=== PATIENT | female | born 1980 | race Two or more races ===

== ENCOUNTER 2025-01-07 22:55 | Emergency (ER) | payer MEDICAID, SELFPAY ==
[2025-01-07 23:13] VITALS: BP 118/83; PULSE 127; RESP 22; TEMP 37.7; O2SAT 97; BMI 33.6
[2025-01-07 23:15] VITALS: BP 110/65; PULSE 116; RESP 20; O2SAT 95
--- NOTE | 2025-01-07 23:29 | EKG_ITS ---
[facility] Test Date: 2025-01-07 Pat Name: EM SHINE Department: Room: - Gender: Female Medical Asst: : 1980 Requested By: Pollo Leon Order Number: [id number] Reading MD: Pollo Leon Measurements Intervals [place] Rate: 110 P: 27 TN: 150 QRS: 59 QRSD: 81 T: 7 QT: 347 QTc: 471 Interpretive Statements SINUS TACHYCARDIA ABNORMAL RHYTHM ECG Compared to ECG 04/14/2023 15:35:03 No significant changes /store/S0/[id number]
--- NOTE | 2025-01-07 23:32 | XR_ITS ---
Examination: Abdomen sonogram, Limited Date and time of exam: January 07, 2025 11:45 PM INDICATIONS: Diagnosis stage IV gastric carcinoma, abdominal pain and bloating this week Technique: Real-time mack scale transabdominal sonographic images of the upper abdomen obtained. Findings: Cholelithiasis, gallbladder wall 0.3 cm no edema Common bile duct 0.4 cm Pancreas obscured by bowel gas Liver 17.2 cm fatty infiltration no focal liver lesions Normal hepatopedal portal venous flow Patent IVC Large complex mass in the upper abdomen 23 x 16.5 x 20.8 cm IMPRESSION: Large complex mass in the upper abdomen as above Cholelithiasis
--- NOTE | 2025-01-07 23:32 | XR_ITS ---
Examination: CT chest, without intravenous contrast. CT abdomen, without intravenous contrast. CT pelvis, without intravenous contrast. 2-D sagittal and coronal reconstructions. 3-D reconstructions. Date and time of exam:January 08, [address] scan March 16, 2024 INDICATIONS: Diagnosis malignant neoplasm uterus with abdominal pain and shortness of breath today CTDI vol (mgy) 16.3 DLP (MGycm)1358 Technique: Multiple CT images, 3.0 mm slice thickness, obtained chest, abdomen, pelvis, with the high-resolution 64 slice scanner.. Sagittal and coronal 2-D reconstructions are obtained. 3-D reconstructions Low dose protocols were performed. One or more of the following dose reduction techniques were used; automated exposure control, adjustment of the mA and/or KV according to patient size, use of iterative reconstruction technique. Findings: No thoracic aortic aneurysmal dilatation Mild enlargement main pulmonary artery segments 10 no interval peritracheal or tracheobronchial adenopathy Multiple metastatic pulmonary nodules, new and larger pulmonary nodules throughout the lungs compared to the PET/CT scan March 16, 2024, the largest in the right upper lobe 13 mm Pneumonia right base with small right pleural effusion Interval mild likely malignant ascites Fatty infiltration throughout the liver Gallstones Gallbladder wall appears thickened Dilated small bowel loops Very large mass in the pelvis at least 25 x 23 x 22 cm with hyperdense areas which may represent hemorrhage No hydronephrosis The mass is contiguous with the uterus Mild urinary bladder wall thickening No bowel obstruction Moderate osteopenia IMPRESSION: Significant progression of pulmonary nodular metastatic disease compared to PET/CT scan March 16, 2024 Pneumonia right base Interval malignant ascites Gallbladder wall thickening, recommend hepatobiliary sonography follow-up Interval large tumor mass in the pelvis with areas of possible hemorrhage in the tumor mass
[2025-01-07] MEDS: ONDANSETRON INJ 2 MG/ML INJ 2 ML 4 MG IV (23:36)
[2025-01-07] MEDS: HYDROmorphone INJ 2 MG/ML VIAL 1 MG IVP (23:37)
[2025-01-07] MEDS: RINGERS LACTATED 1000 ML 1,000 ML 999 ML IV (23:37)
[2025-01-07 23:40] VITALS: PULSE 110
[2025-01-07 23:44] LABS: Lactate (Lactic Acid) 1.7 mMol/L (0.4-2.0)
[2025-01-07 23:46] LABS: Basophils % (Auto) 0 % (0-2.5); Eosinophils # (Auto) 0.2 Thou/mm3 (0.0-0.5); Eosinophils % (Auto) 2 % (0-10); Hematocrit 30.4 % (36.0-46.0); Hemoglobin 10.2 g/dL (12.0-16.0); Immature Granulocytes % (Auto) 0 % (0-0); Immature Granulocytes Auto 0.02 Thou/mm3 (0.00-0.00); Lymphocytes # (Auto) 2.7 Thou/mm3 (1.0-4.8); Lymphocytes % (Auto) 28 % (10-50); Mean Corpuscular HGB Conc 33.6 g/dl (31.0-37.0); Mean Corpuscular Hemoglobin 28.7 pg (25.0-35.0); Mean Corpuscular Volume 86 fL (80-100); Monocytes # (Auto) 0.6 Thou/mm3 (0.0-0.8); Monocytes % (Auto) 6 % (0-12); Neutrophils % (Auto) 63 % (37-80); Nucleated Red Blood Cell % 0 /100 WBC (0); Platelet Count 300 Thou/mm3 (140-440); RDW Standard Deviation 44.4 fL (36.4-46.3); Red Blood Count 3.55 Miln/mm3 (4.00-5.20); White Blood Count 9.4 Thou/mm3 (3.6-11.0)
[2025-01-08 00:01] LABS: INR 1.2 (0.9-1.3); Partial Thromboplastin Time 27.4 Seconds (22.0-36.0); Prothrombin Time 12.8 Seconds (9.0-12.2)
--- NOTE | 2025-01-08 00:01 | XR_ITS ---
Examination: AP chest single view TECHNIQUE: AP portable upright chest single view Date and time: January 08, 2025 12:37 AM Comparison March 11, 2023 INDICATIONS: Sepsis alert today FINDINGS: Mild atelectasis in the right lower lung zone No lobar pneumonia Right internal jugular Port-A-Cath tip SVC Possible nodule in the right upper lobe 17 mm in this patient with a diagnosis of malignant neoplasm of uterus. IMPRESSION: Recommend CT scan chest without contrast follow-up to confirm a 17 mm pulmonary nodule right upper lobe and possible small numerous bilateral smaller pulmonary nodules
[2025-01-08 00:06] LABS: B-Type Natriuretic Peptide 22 pg/mL (0-100)
[2025-01-08 00:18] LABS: Alanine Aminotransferase < 7 U/L (10-49); Albumin, Serum 3.7 gm/dL (3.5-5.0); Albumin/Globulin Ratio 0.9 (1.2-2.2); Alkaline Phosphatase 95 U/L (46-116); Anion Gap 12 (7-16); Aspartate Amino Transferase 25 U/L (0-34); BUN/Creatinine Ratio 6 Ratio (12-20); Bilirubin,Total 0.8 mg/dL (0.3-1.2); Blood Urea Nitrogen < 5 mg/dL (9-23); Calcium 9.3 mg/dL (8.3-10.6); Calcium (Corrected) 9.5 mg/dL (8.5-10.1); Carbon Dioxide 22.6 mMol/L (20.0-31.0); Chloride 101 mMol/L (98-107); Creatinine (Component) 0.8 mg/dL (0.6-1.3); Estimated Creatinine Clearance 109.9 mL/min (>60); Glucose 92 mg/dL (74-106); LDH (Lactate Dehydrogenase) 1091 U/L (120-246); Lipase 24 U/L (12-53); Magnesium 1.7 mg/dL (1.6-2.6); Osmolality,Calculated 269 (275-295); Phosphorous 1.8 mg/dL (2.4-5.1); Potassium 3.3 mMol/L (3.4-5.1); Procalcitonin 0.22 ng/ml (0.0-0.49); Sodium 136 mMol/L (136-145); Total Protein 7.7 gm/dL (5.7-8.2); Troponin I < 0.002 ng/mL (0.0-0.045); eGFR > 60 See Note
--- NOTE | 2025-01-08 00:37 | PD.EDABDPN ---
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 She rated her pain 10/10 in intensity, throughout the abdomen, associated with nausea and vomiting. She also admitted lightheadedness and headache, but denied any sore throat, chest pain, SOB, any changes in bowel or bladder habit, or leg swelling. She denied any fever or chills. Related Data Previous Rx's ?Medication ?Instructions ?Recorded hydrocodone 7.5 mg-acetaminophen 1 tab PO Q8H PRN pain #14 tabs 01/08/25 325 mg tablet ondansetron HCl 4 mg tablet 4 mg PO Q8H PRN nausea and 01/08/25 vomiting #14 tabs Allergies Allergy/AdvReac Type Severity Reaction Status Date / Time No Known Allergies Allergy Verified 01/07/25 22:56 Review of Systems Review of Systems Systems Reviewed: All systems reviewed, normal except as documented ED Exam Narrative Physical exam: General: Mildly obese, cooperative female, no acute distress, Alert and Oriented x 3 HEENT: Mildly dry mucous membranes, oropharynx clear Neck: Supple, No masses, No JVD CVS: Sinus tachycardia, No murmurs, rubs or gallops Lungs: Clear to auscultation with no accessory use, no wheeze no rhonchi Abd: Soft, tenderness over RUQ and epigastrium/ND, +BS, no organomegaly Ext: No edema, warm and well perfused Skin: No rash Psych: Appropriate mood and affect Course Quality Measures none Orders Category Date Time Status CT Screening NOW Care 01/08/25 03:56 Active Instruction Librarian STAT Care 01/07/25 23:29 Active Continuous Pulse Oximetry STAT Care 01/07/25 23:29 Completed EKG (ED ONLY) *Do not use* NOW Care 01/07/25 23:29 Completed IV [Insert IV] STAT Care 01/07/25 23:18 Active Insert IV NOW Care 01/07/25 23:29 Completed NPO STAT Care 01/07/25 23:29 Active Strict Intake and Output Routine Care 01/07/25 23:[address] angio chest abdomen pelvis Stat Exams 01/08/25 03:[address] chest abdomen pelvis wo Stat Exams 01/07/25 23:32 Taken EKG (ED Only) Stat Exams 01/07/25 23:29 Draft US gall bladder Stat Exams 01/07/25 23:32 Taken XR chest 1V SEPSIS PROTOCOL Stat Exams 01/08/25 00:01 Taken B-Type Natriuretic Peptide Stat Lab 01/07/25 23:30 Completed CBC Stat Lab 01/07/25 23:30 Completed CBC Stat Lab 01/08/25 05:16 Completed CMP [Comprehensive Metabolic Panel] Routine Lab 01/08/25 05:16 Completed Comprehensive Metabolic Panel Stat Lab 01/07/25 23:30 Completed LDH (Lactate Dehydrogenase) Stat Lab 01/07/25 23:30 Completed Lactate (Lactic Acid) Stat Lab 01/07/25 23:30 Completed Lipase Stat Lab 01/07/25 23:30 Completed Magnesium Routine Lab 01/08/25 05:16 Completed Magnesium Stat Lab 01/07/25 23:30 Completed PT [Prothrombin Time with INR] Routine Lab 01/08/25 05:16 Completed PTT [Partial Thromboplastin Time] Routine Lab 01/08/25 05:16 Completed Partial Thromboplastin Time Stat Lab 01/07/25 23:30 Completed Phosphorous Routine Lab 01/08/25 05:16 Completed Phosphorous Stat Lab 01/07/25 23:30 Completed Procalcitonin Stat Lab 01/07/25 23:30 Completed Prothrombin Time with INR Stat Lab 01/07/25 23:30 Completed Troponin I Stat Lab 01/07/25 23:30 Completed Urinalysis Stat Lab 01/08/25 01:14 Completed Urine Culture Stat Lab 01/08/25 01:14 Received HYDROmorphone INJ [Dilaudid Inj] Med 01/07/25 23:27 Discontinued 1 mg IVP X1 ONE HYDROmorphone INJ [Dilaudid Inj] Med 01/08/25 01:53 Discontinued 1 mg IVP X1 ONE Magnesium Sulfate 4 GM Ivpb [Magnesium Sulfate Ivpb] Med 01/08/25 00:50 Discontinued 4 gm in 50 ml IV X1 Ondansetron Inj [Zofran Inj] Med 01/07/25 23:27 Active 4 mg IV Q6HR PRN POT PHOS 15 mMol in NS 250 ML [Pot Phos 15 mMol in NS Med 01/08/25 00:36 Active 250 ml] 15 mmol in 250 ml IV Q4H POTASSIUM CHL 10 mEq IVPB [Kcl Ivpb] Med 01/08/25 06:23 Active 10 meq in 100 ml IV Q1H Potassium Chloride [K-Dur] Med 01/08/25 06:22 Discontinued 20 meq PO X1 ONE Potassium Chloride [K-Dur] Med 01/08/25 06:37 Discontinued 20 meq PO X1 ONE Potassium Chloride [K-Dur] Med 01/08/25 06:37 Discontinued 20 meq PO X1 ONE Ringers Lactated 1000 ml [Lactated Ringers] 1,000 ml Med 01/07/25 23:27 Discontinued IV 999 mls/hr Sodium Chloride 0.9% 1000 ml [Ns] 1,000 ml Med 01/08/25 00:46 Discontinued IV 999 mls/hr Sodium Chloride 0.9% 500 ml [Ns] 500 ml Med 01/08/25 06:40 Active IV 999 mls/hr Oxygen Delivery NOW RT 01/07/25 23:29 Active Vital Signs Vital signs: Vital Signs Temperature 99.8 F 01/07/25 23:13 Pulse Rate 127 H 01/07/25 23:13 Respiratory Rate 22 H 01/07/25 23:13 Blood Pressure 118/83 01/07/25 23:13 Pulse Oximetry (%) 97 01/07/25 23:13 Oxygen Delivery Method Room Air 01/07/25 23:13 Abdominal Pain MDM MDM Narrative [facility] Narrative:: The patient is a 44-year-old female with significant past medical history of 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 She rated her pain 10/10 in intensity, throughout the abdomen, associated with nausea and vomiting. She also admitted lightheadedness and headache, but denied any sore throat, chest pain, SOB, any changes in bowel or bladder habit, or leg swelling. She denied any fever or chills. Her vitals were BP 118/83, pulse 127, RR 22, temperature 99.8, saturating 97% on room air. Labs revealed white count of 9.4, hemoglobin 10.2, PT 12.8, INR 1.2, APTT 27.4, sodium 136, potassium 3.3, lactic acid 1.7, phosphorus 1.8, LDH 1091, troponin less than 0.002, lipase 24 and Pro-Mikal 0.22. EKG revealed sinus tachycardia, Prelim read for gallbladder ultrasound revealed cholelithiasis with borderline wall thickening, CTA chest, abdomen/pelvis revealed Large pelviabdominal neoplastic complex mass as described. Multiple lung nodules likely metastasis. Small ascites with peritoneal nodular thickening and omental stranding , peritoneal metastasis cannot be excluded. Small to moderate right pleural effusion. Cholelithiasis with borderline wall thickening CTA chest/abdomen/pelvis revealed: 1. No evidence of aortic dissection or aneurysm. 2. No CT evidence of pulmonary thromboembolism (limited evaluation of some of the subsegmental pulmonary artery divisions due to respiratory motion artifact). Recommend additional evaluation, if clinically indicated. 3. Unchanged large pelviabdominal neoplastic mass with lung metastasis and possible peritoneal deposits. 4. Small to moderate right pleural effusion. 5. Cholelithiasis with borderline wall thickening The patient received hydromorphone 1 mg IVP x 2, LR 1 L bolus x 1 and normal saline 1 L bolus x 1, magnesium sulfate 4 g IV, potassium and phosphate 30 mmol, KCl 20 mEq IV x 1. The plan was made to discharge the patient home. Patient data External records reviewed:: [facility] previous records Clinical information provided by:: patient and family Social determinants that could affect healthcare access:: none Patient has the following chronic illnesses:: See above How is presenting disease/condition affected by chronic disease/condition?: caused by Evaluation data The following diagnostics were reviewed and interpreted by me:: lab results, radiology exam(s) and EKG tracing(s) Lab and/or radiology exams considered but not ordered:: None Interpretation Summary: See above Medications / Prescriptions Medications or Prescriptions considered but not ordered:: None Medication administrations:: Medication Administration History Potassium Phosphate (Pot Phos 15 Mmol In Ns 250 Ml) 15 mmol in 250 mls @ 62.5 mls/hr IV Q4H MARU Stop: 01/08/25 08:35 Last Infusion: 01/08/25 06:36 Dose: Infused Documented By: Admin: 01/08/25 02:09 Dose: 62.5 mls/hr Documented By: CVL Potassium Chloride (Kcl Ivpb) 10 meq in 100 mls @ 100 mls/hr IV Q1H AMRU Stop: 01/08/25 08:22 Last Admin: 01/08/25 06:33 Dose: 100 mls/hr Documented By: FELIPE Sodium Chloride (Ns) 500 mls @ 999 mls/hr IV .Q31M ONE Stop: 01/08/25 07:10 Last Admin: 01/08/25 06:40 Dose: 999 mls/hr Documented By: FELIPE Ondansetron HCl (Ondansetron Inj 2 Mg/Ml Inj 2 Ml) 4 mg IV Q6HR PRN PRN Reason: NAUSEA OR VOMITING Stop: 02/06/25 23:26 Last Admin: 01/08/25 05:17 Dose: 4 mg Documented By: Admin: 01/07/25 23:36 Dose: 4 mg Documented By: FELIPE Discontinued Medications Hydromorphone HCl (Hydromorphone Inj 2 Mg/Ml Vial) 1 mg IVP X1 ONE Stop: 01/07/25 23:28 Last Admin: 01/07/25 23:37 Dose: 1 mg Documented By: FELIPE Hydromorphone HCl (Hydromorphone Inj 2 Mg/Ml Vial) 1 mg IVP X1 ONE Stop: 01/08/25 01:54 Last Admin: 01/08/25 02:02 Dose: 1 mg Documented By: CVL Lactated Ringer's (Lactated Ringers) 1,000 mls @ 999 mls/hr IV .Q1H1M ONE Stop: 01/08/25 00:27 Last Infusion: 01/08/25 00:44 Dose: Infused Documented By: Admin: 01/07/25 23:37 Dose: 999 mls/hr Documented By: FELIPE Sodium Chloride (Ns) 1,000 mls @ 999 mls/hr IV .Q1H1M ONE Stop: 01/08/25 01:46 Last Infusion: 01/08/25 01:56 Dose: Infused Documented By: Admin: 01/08/25 01:12 Dose: 999 mls/hr Documented By: FELIPE Magnesium Sulfate (Magnesium Sulfate Ivpb) 4 gm in 50 mls @ 12.5 mls/hr IV X1 ONE Stop: 01/08/25 04:49 Last Infusion: 01/08/25 04:59 Dose: Infused Documented By: Admin: 01/08/25 01:12 Dose: 12.5 mls/hr Documented By: CB Potassium Chloride (Potassium Chloride 20 Meq Tabcr) 20 meq PO X1 ONE Stop: 01/08/25 06:23 Potassium Chloride (Potassium Chloride 20 Meq Tabcr) 20 meq PO X1 ONE Stop: 01/08/25 06:38 Potassium Chloride (Potassium Chloride 20 Meq Tabcr) 20 meq PO X1 ONE Stop: 01/08/25 06:38 See above Consultations Consultation(s) initiated? (list below): No Diagnosis Differential diagnosis abdominal pain: abdominal pain, gastroenteritis, pancreatitis and small bowel obstruction Most likely diagnosis given after review of the tests above:: Abdominal Pain Admission Indicated Admission indicated?: not indicated Explain why admission is indicated or not indicated:: Her vitals were stable, labs at baseline and stable. Admission Request Was there a request for admission?: No Disposition Plan Disposition Plan: other (specify) Discharge Plan Plan Patient Disposition: HOME (Self Care) Prescriptions/Referrals Prescriptions/Med Rec: New hydrocodone-acetaminophen 7.5-325 mg tablet 1 tab PO Q8H MDD 3 PRN (Reason: pain) Qty: 14 0RF ondansetron HCl 4 mg tablet 4 mg PO Q8H PRN (Reason: nausea and vomiting) Qty: 14 0RF Referrals: Pee Zelaya MD [Primary Care Provider] - In 1 week Problem List Clinical Impression: Abdominal pain, Leiomyosarcoma Patient/Caregiver Discharge Instructions Discharge Activity: activity as tolerated Education Materials: Nausea Vomit Control-Cancer Care Additional Instructions: You were discharged by Dr. Leon with following recommendations: Please follow-up with your PCP within 1 week of discharge Please follow-up with your oncologist as soon as possible. You have been started on: -Ondansetron 4 mg up to 3 times a day for nausea or vomiting - Hydrocodone-acetaminophen 7.5/325 mg up to 3 times a day for pain Continue taking all other medicines as prescribed -Recommended to return back to emergency department if your symptoms persists or worsens Print Language: Haitian Stand Alone Forms: Analisa Award Info., Patient Portal Info Letter Attestation Attestation I, Dr. Nelson, have reviewed the history, exam, and assessment of the patient. I have evaluated the patient independently and agree with the plan of care documented by the resident Dr. baker. All diagnostic studies were reviewed and discussed. I confirm the diagnosis as documented by the resident. I was present during the Medical Decision Making for this patient. The patient?s plan of care was created between myself and the resident and consistent with our discussion of the patient?s case.
[2025-01-08 01:12] VITALS: BP 110/79; PULSE 113; RESP 16; TEMP 37.4; O2SAT 94
[2025-01-08] MEDS: Magnesium Sulfate 4 GM Ivpb 4 GM/50 ML BAG IV (01:12)
[2025-01-08] MEDS: SODIUM CHLORIDE 0.9% 1000 ML 1,000 ML 999 ML IV (01:12)
[2025-01-08 01:18] LABS: Collection Type, Urine Clean Catch
[2025-01-08 01:28] LABS: Bacteria,Urine Rare; Bilirubin,Urine Negative (Negative); Blood,Urine Negative (Negative); Clarity,Urine Turbid (Clear/Hazy); Color,Urine Yellow (Lt Yel-Yel); Glucose, Urine Negative (Negative); Hyaline Casts,Urine < 1 /hpf (0-1); Ketones,Urine 1+ (Negative); Leukocyte Esterase,Urine Positive (Negative); Nitrite,Urine Negative (Negative); Protein,Urine Trace (Neg - Trace); RBC,Urine 4 /hpf (0-3); Specific Gravity,Urine 1.013 (1.001-1.035); Squamous Epithelial Cell,Urine 23 /hpf (0-5); WBC,Urine 14 /hpf (0-5)
[2025-01-08] MEDS: HYDROmorphone INJ 2 MG/ML VIAL 1 MG IVP (02:02)
[2025-01-08] MEDS: POT PHOS 15 mMol in NS 250 ML 15 MMOL/250 ML BAG 62.5 MMOL IV (02:09)
--- NOTE | 2025-01-08 02:16 | PRELIM_ITS ---
Gallbladder ultrasound. January 07, 2025 2345 hours Clinical history: Right upper quadrant tenderness Comparison: No prior study is available for comparison. Findings: The visualized liver is heterogenous without mass or ductal dilatation. There are a few calculi in the gallbladder with borderline wall thickness measuring 3 mm .No pericholecystic fluid is identified. The common duct is normal in caliber at 4 mm.There is a large complex mass in the mid abdomen measuring 23 x 14.5 x 20.8 cm. The pancreas is not visualized. Patent portal vein with hepatopetal flow. Patent inferior vena cava Impression: Cholelithiasis with borderline wall thickening Recommend clinical correlation and follow-up. Large complex mass in the mid abdomen Recommend further evaluation. Report Electronically Signed By: Thompson Salazar 01/08/2025 2:15:55 AM [EST]
--- NOTE | 2025-01-08 03:39 | PRELIM_ITS ---
CT scan of the chest, abdomen and pelvis without intravenous contrast (axial sections with sagittal and coronal reformats) January 08, 2025 0052 hours Clinical History: Abdominal pain with possible mets from lungs. Comparison: No prior study is available for comparison. Findings: There are multiple nodules in bilateral lungs , the largest at the right upper lobe measuring 1.6 cm . There is a right small to moderate pleural effusion with compressive atelectasis . There is no pneumothorax. The aorta is unremarkable on this noncontrast study. No evidence of mediastinal mass or lymphadenopathy. There is no pericardial effusion.There is a Port-A-Cath in the right anterior chest wall with its tip in the right atrium. There are a few gallbladder calculi with borderline wall thickening. The liver, spleen, pancreas, adrenals and kidneys are unremarkable on this noncontrast study. There is a large complex pelviabdominal mass measuring 25 x 20 x 22 cm with areas of hemorrhage and necrosis , the mass is not separable from uterus . There is mild peritoneal thickening and omental fat stranding . No evidence of bowel obstruction. The appendix is not definitively visualized; however, there is no evidence of inflammatory process in the right lower quadrant to suggest appendicitis. The urinary bladder is incompletely distended with apparent wall thickening . There is no free air. There is small ascites . Mild degenerative changes are identified in the spine. Impression: Large pelviabdominal neoplastic complex mass as described. Multiple lung nodules likely metastasis. Small ascites with peritoneal nodular thickening and omental stranding , peritoneal metastasis cannot be excluded. Small to moderate right pleural effusion. Cholelithiasis with borderline wall thickening Recommend follow-up. Other findings as described above. Report Electronically Signed By: Thompson Salazar 01/08/2025 3:39:22 AM [EST]
--- NOTE | 2025-01-08 03:51 | XR_ITS ---
Examination: CTA chest, with intravenous contrast. CTA abdomen, with intravenous contrast. CTA pelvis, with intravenous contrast. 2-D sagittal and coronal reconstructions. 3-D reconstructions. Date and time of exam: January 08, 2025 0414 hours uterus Comparison PET CT scan March 16, 2024 EXAMINATION: Chest pain and shortness of breath today, abdominal pain, diagnosis malignant neoplasm CTDI vol (mgy) 28.5 DLP (MGycm) 1841 Technique: Multiple CTA images, 2.0 mm slice thickness, obtained chest, abdomen, pelvis, with the high-resolution 64 slice scanner. 100 cc Isovue-370 is administered intravenously. Sagittal and coronal 2-D reconstructions are obtained. 3-D reconstructions, angiographic images are obtained. 3-D postprocessing, including vascular maximum intensity projections. Low dose protocols were performed. One or more of the following dose reduction techniques were used; automated exposure control, adjustment of the mA and/or KV according to patient size, use of iterative reconstruction technique. Findings: No thoracic aortic aneurysmal dilatation No pulmonary artery filling defects Again noted multiple metastatic pulmonary nodules, progression of pulmonary nodular metastatic disease compared to the PET/CT scan March 16, 2024 Gallstones Gallbladder wall appears mildly thickened Mild ascites, likely malignant ascites No focal liver or splenic lesions No pancreatic mass The very large mass in the lower abdomen and pelvis again noted, at least 25 cm Contracted urinary bladder IMPRESSION: Progression of pulmonary metastatic disease compared to PET/CT scan March 16, 2024 Gallbladder wall thickening with gallstones Mild malignant ascites Large pelvic abdominal mass again depicted with areas of hemorrhage
[2025-01-08 04:27] VITALS: BP 110/69; PULSE 104; RESP 17; TEMP 36.8; O2SAT 96
[2025-01-08] MEDS: ONDANSETRON INJ 2 MG/ML INJ 2 ML 4 MG IV (05:17)
[2025-01-08 05:24] LABS: Basophils % (Auto) 1 % (0-2.5); Eosinophils # (Auto) 0.1 Thou/mm3 (0.0-0.5); Eosinophils % (Auto) 2 % (0-10); Hemoglobin 8.9 g/dL (12.0-16.0); Immature Granulocytes % (Auto) 0 % (0-0); Immature Granulocytes Auto 0.01 Thou/mm3 (0.00-0.00); Lymphocytes # (Auto) 1.9 Thou/mm3 (1.0-4.8); Lymphocytes % (Auto) 24 % (10-50); Mean Corpuscular Hemoglobin 29.5 pg (25.0-35.0); Mean Corpuscular Volume 89 fL (80-100); Monocytes # (Auto) 0.6 Thou/mm3 (0.0-0.8); Monocytes % (Auto) 7 % (0-12); Neutrophils # (Auto) 5.3 Thou/mm3 (1.8-7.7); Neutrophils % (Auto) 67 % (37-80); Nucleated Red Blood Cell % 0 /100 WBC (0); Platelet Count 252 Thou/mm3 (140-440); RDW Standard Deviation 46.1 fL (36.4-46.3); Red Blood Count 3.02 Miln/mm3 (4.00-5.20); White Blood Count 7.9 Thou/mm3 (3.6-11.0)
[2025-01-08 05:46] LABS: INR 1.2 (0.9-1.3); Partial Thromboplastin Time 28.5 Seconds (22.0-36.0); Prothrombin Time 12.9 Seconds (9.0-12.2)
[2025-01-08 06:01] LABS: Alanine Aminotransferase < 7 U/L (10-49); Albumin, Serum 3.2 gm/dL (3.5-5.0); Albumin/Globulin Ratio 0.9 (1.2-2.2); Alkaline Phosphatase 82 U/L (46-116); Anion Gap 11 (7-16); Aspartate Amino Transferase 22 U/L (0-34); BUN/Creatinine Ratio 6 Ratio (12-20); Bilirubin,Total 0.6 mg/dL (0.3-1.2); Blood Urea Nitrogen < 5 mg/dL (9-23); Calcium 8.5 mg/dL (8.3-10.6); Calcium (Corrected) 9.1 mg/dL (8.5-10.1); Carbon Dioxide 23.1 mMol/L (20.0-31.0); Chloride 102 mMol/L (98-107); Creatinine (Component) 0.8 mg/dL (0.6-1.3); Estimated Creatinine Clearance 109.9 mL/min (>60); Globulin 3.6 gm/dL (2.3-3.5); Glucose 94 mg/dL (74-106); Magnesium 2.3 mg/dL (1.6-2.6); Osmolality,Calculated 269 (275-295); Phosphorous 3.7 mg/dL (2.4-5.1); Potassium 3.5 mMol/L (3.4-5.1); Sodium 136 mMol/L (136-145); Total Protein 6.8 gm/dL (5.7-8.2); eGFR > 60 See Note
--- NOTE | 2025-01-08 06:08 | PRELIM_ITS ---
CT angiogram of the chest, abdomen and pelvis with intravenous contrast (axial sections with sagittal and coronal reformats) January 08, 2025 at 0414 hours Clinical History: Previous PE with tachycardia and O2 sats in 80's. Comparison: January 08, 2025 at 0052 hours. Findings: The thoracic aorta demonstrates mild atheromatous calcification without evidence of dissection or aneurysm. The origins of the right brachiocephalic, left common carotid and left subclavian arteries are patent. The abdominal aorta demonstrates mild atheromatous calcification without evidence of dissection or aneurysm. The celiac, superior mesenteric, inferior mesenteric and bilateral renal arteries are patent to the extent visualized. The common iliac, external iliac and internal iliac arteries are patent bi laterally. The evaluation of some of the subsegmental pulmonary artery divisions is limited due to respiratory motion artifact. No pulmonary thromboembolism in the remainder of the pulmonary artery divisions. Again seen are multiple nodules in bilateral lungs , the largest at the right upper lobe measuring 1.6 cm . There is a right small to moderate pleural effusion with compressive atelectasis .No evidence of mediastinal mass or lymphadenopathy. There is no pericardial effusion.No evidence of pneumothorax. Again seen is large complex pelviabdominal mass measuring 25 x 20 x 22 cm with areas of hemorrhage and necrosis, the mass is not separable from uterus. There is mild peritoneal thickening and omental fat stranding. Again seen are few gallbladder calculi with borderline wall thickening. The liver, spleen, pancreas, adrenals and kidneys are unremarkable. No evidence of bowel obstruction. The appendix is not definitively visualized; however, there is no evidence of inflammatory process in the right lower quadrant to suggest appendicitis. There is no significant mesenteric or retroperitoneal adenopathy. The urinary bladder is incompletely distended . There is no free air or abscess. There is small ascites Mild Degenerative changes are identified in the spine. Impression: 1. No evidence of aortic dissection or aneurysm. 2. No CT evidence of pulmonary thromboembolism (limited evaluation of some of the subsegmental pulmonary artery divisions due to respiratory motion artifact). Recommend additional evaluation, if clinically indicated. 3. Unchanged large pelviabdominal neoplastic mass with lung metastasis and possible peritoneal deposits. 4. Small to moderate right pleural effusion. 5. Cholelithiasis with borderline wall thickening Recommend follow-up 6. Other findings as described above. Report Electronically Signed By: Benita Pearson 01/08/2025 6:08:05 AM [EST]
[2025-01-08] MEDS: POTASSIUM CHL 10 mEq IVPB 10 MEQ/100 ML BAG 100 MEQ IV ×2 (06:33→07:34)
[2025-01-08 06:40] VITALS: BP 118/74; PULSE 97; RESP 19; O2SAT 99
[2025-01-08] MEDS: SODIUM CHLORIDE 0.9% 500 ML 500 ML 999 ML IV (06:40)
--- NOTE | 2025-01-08 07:12 | EKG_ITS ---
[facility] Test Date: 2025-01-08 Pat Name: EM SHINE Department: Room: - Gender: Female Nursing Director: : 1980 Requested By: Baljinder Madrid Order Number: [id number] Reading MD: Baljinder Madrid Measurements Intervals [place] Rate: 93 P: 18 KS: 159 QRS: 26 QRSD: 77 T: 0 QT: 376 QTc: 469 Interpretive Statements SINUS RHYTHM Compared to ECG 01/07/2025 23:38:29 Sinus tachycardia no longer present /store/S0/[id number]
[2025-01-08] MEDS: ONDANSETRON ODT 4 MG TABRAP PO (07:41)
[2025-01-08 07:56] VITALS: BP 118/82; PULSE 92; RESP 18; TEMP 36.9; O2SAT 97
--- NOTE | 2025-01-08 08:42 | PD.EDADDENDU ---
MD Attestation Attestation Dr. Leon, PGY 2 night ED resident signed out ED course, exam findings, labs and radiology results regarding the patient. 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 She rated her pain 10/10 in intensity, throughout the abdomen, associated with nausea and vomiting. She also admitted lightheadedness and headache, but denied any sore throat, chest pain, SOB, any changes in bowel or bladder habit, or leg swelling. She denied any fever or chills. Differentials included abdominal pain related to gastroenteritis, pancreatitis and SBO Gastroenteritis and pancreatitis were ruled out. Patient was found to have abdominal pain likely related to leiomyosarcoma. She was advised to follow-up with her PCP and oncologist as soon as possible. She was given prescriptions for Zofran and [place] for pain management. 7:38: Patient was given IV 20 mEq KCl back and p.o. potassium was discontinued as patient was feeling nauseous and was given dose of Zofran. Repeat EKG showed QTc 427 with sinus rhythm. Will likely discharge the patient after an hour of IV KCl and with improvement in nausea. 8:46 Patients' pain and nausea has significantly improved. Patient was stable at the time of discharge. Baljinder Madrid MD, PGY 2
[2025-01-08 09:23] VITALS: BP 126/73; PULSE 102; O2SAT 94
== END 2025-01-08 09:25 | disposition home or self-care (01) ==
PROVIDERS: Student in an Organized Health Care Education/Training Program; Emergency Provider Emergency Medicine; PCP Family Medicine
DX: R10.9 Unspecified abdominal pain (principal); C49.9 Malignant neoplasm of connective and soft tissue, unspecified; C78.00 Secondary malignant neoplasm of unspecified lung; R11.2 Nausea with vomiting, unspecified; R51.9 Headache, unspecified; R42 Dizziness and giddiness
CPT/HCPCS: 36415; 71045; 71250; 71275; 74174; 74176; 76705; 80053; 81001; 83605; 83615; 83690; 83735; 83880; 84100; 84145; 84484; 85025; 85610; 85730; 87086; 93005; 96361; 96365; 96366; 96367; 96375; 96376; 99285; A4649; J1171; J2405; J3475; J3480; J7030; J7040; J7120; J7999; Q0162; Q9967

== ENCOUNTER 2025-01-16 06:27 | Inpatient (IN) | payer MEDICAID, SELFPAY ==
[2025-01-16 06:29] VITALS: BMI 31.9
[2025-01-16 06:37] VITALS: BP 124/85; PULSE 120; RESP 20; TEMP 37.1; O2SAT 94
--- NOTE | 2025-01-16 06:46 | XR_ITS ---
Examination: Abdomen sonogram, Limited Date and time of exam: January 16, 2025 0732 hours INDICATIONS: Right upper abdominal pain and vomiting beginning 2 weeks ago, gallbladder wall thickening on CT abdomen study January 08, 2025 Technique: Real-time mack scale transabdominal sonographic images of the upper abdomen obtained. Findings: Gallstones Gallbladder wall 0.43 cm no edema Common bile duct 0.6 cm no stones Pancreatic head 2.4 cm Liver 15.1 cm irregular contour with mild ascites Normal hepatopedal portal venous flow Patent IVC IMPRESSION: Cholelithiasis Thickening of the gallbladder wall 0.43 cm, consider HIDA scan or MRCP follow-up Cirrhosis Mild ascites
--- NOTE | 2025-01-16 06:46 | PD.EDRME ---
Rapid Medical Screening Exam RME Arrival date/time: 01/16/25 06:27 44-year-old female with a history of uterine cancer that has spread to the stomach presents to the emergency room with a chief complaint of 10 out of 10 right upper quadrant abdominal pain and tenderness x 2 days. Caregiver at bedside states the patient is fatigued and has not got any rest. I have greeted and performed a focused initial assessment of this patient. A comprehensive ED assessment and evaluation of the patient, analysis of all test results, and completion of the medical decision making process will be conducted by additional ED providers. Chief Complaint: Abdominal Pain Time Seen by Provider: 01/16/25 06:42 Vital signs: Vital Signs Temperature 98.7 F 01/16/25 06:37 Pulse Rate 120 H 01/16/25 06:37 Respiratory Rate 20 01/16/25 06:37 Blood Pressure 124/85 H 01/16/25 06:37 Pulse Oximetry (%) 94 L 01/16/25 06:37 Oxygen Delivery Method Room Air 01/16/25 06:37 Vital signs reviewed by provider: Yes
[2025-01-16 07:20] LABS: Basophils % (Auto) 0 % (0-2.5); Eosinophils # (Auto) 0.2 Thou/mm3 (0.0-0.5); Eosinophils % (Auto) 2 % (0-10); Hematocrit 30.3 % (36.0-46.0); Hemoglobin 9.8 g/dL (12.0-16.0); Immature Granulocytes % (Auto) 0 % (0-0); Immature Granulocytes Auto 0.05 Thou/mm3 (0.00-0.00); Lymphocytes # (Auto) 2.2 Thou/mm3 (1.0-4.8); Lymphocytes % (Auto) 19 % (10-50); Mean Corpuscular HGB Conc 32.3 g/dl (31.0-37.0); Mean Corpuscular Hemoglobin 28.4 pg (25.0-35.0); Mean Corpuscular Volume 88 fL (80-100); Monocytes # (Auto) 0.7 Thou/mm3 (0.0-0.8); Monocytes % (Auto) 6 % (0-12); Neutrophils # (Auto) 8.3 Thou/mm3 (1.8-7.7); Neutrophils % (Auto) 72 % (37-80); Nucleated Red Blood Cell % 0 /100 WBC (0); Platelet Count 291 Thou/mm3 (140-440); RDW Standard Deviation 47.2 fL (36.4-46.3); Red Blood Count 3.45 Miln/mm3 (4.00-5.20); White Blood Count 11.6 Thou/mm3 (3.6-11.0)
[2025-01-16 07:48] LABS: Alanine Aminotransferase < 7 U/L (10-49); Albumin, Serum 3.5 gm/dL (3.5-5.0); Albumin/Globulin Ratio 0.9 (1.2-2.2); Alkaline Phosphatase 103 U/L (46-116); Anion Gap 11 (7-16); Aspartate Amino Transferase 27 U/L (0-34); BUN/Creatinine Ratio 8 Ratio (12-20); Bilirubin,Total 0.8 mg/dL (0.3-1.2); Blood Urea Nitrogen 9 mg/dL (9-23); Calcium 8.8 mg/dL (8.3-10.6); Calcium (Corrected) 9.2 mg/dL (8.5-10.1); Carbon Dioxide 24.7 mMol/L (20.0-31.0); Chloride 99 mMol/L (98-107); Creatinine (Component) 1.1 mg/dL (0.6-1.3); Estimated Creatinine Clearance 80.4 mL/min (>60); Globulin 3.7 gm/dL (2.3-3.5); Glucose 94 mg/dL (74-106); Lipase 22 U/L (12-53); Osmolality,Calculated 268 (275-295); Potassium 3.5 mMol/L (3.4-5.1); Sodium 135 mMol/L (136-145); Total Protein 7.2 gm/dL (5.7-8.2); eGFR > 60 See Note
--- NOTE | 2025-01-16 08:11 | PD.EDADULT ---
ED General RME/HPI General Chief complaint: Abdominal Pain Stated complaint: ABD PAIN TWO WKS NAUSEA VOMITING Time Seen by Provider: 01/16/25 06:42 Arrival date/time: 01/16/25 06:27 RME / HPI RME / HPI narrative: 01/16/25 06:27 44-year-old female with a history of uterine cancer that has spread to the stomach presents to the emergency room with a chief complaint of 10 out of 10 right upper quadrant abdominal pain and tenderness x 2 days. Caregiver at bedside states the patient is fatigued and has not got any rest. I have greeted and performed a focused initial assessment of this patient. A comprehensive ED assessment and evaluation of the patient, analysis of all test results, and completion of the medical decision making process will be conducted by additional ED providers. DR. CEDENO MAIN ED EVALUATION: 44 year old female with past medical history significant for uterine cancer that has spread to the stomach presents to the Emergency Department accompanied by her with complaints of right-sided abdominal pain, nausea, and vomiting. Onset of symptoms 2.5 weeks. Other symptoms include generalized weakness. She states she is supposed to start chemo soon just having some insurance problems. Last bowel movement was Wednesday. No other symptoms reported at this time. 1500: Obtained more history from the patient and her brother. She was diagnosed with cancer on 07/2023 and was followed by Dr. Landin at [place]; had chemo all 2023 but last saw her doctor 07/2024. After that she discontinued her cancer treatment because her private insurance was cancelled; now she is on [employer] insurance and trying to see where to go. Related Data Home Medications ?Medication ?Instructions ?Recorded ?Confirmed No Known Home Medications 01/17/25 01/17/25 Allergies Allergy/AdvReac Type Severity Reaction Status Date / Time No Known Allergies Allergy Verified 01/16/25 06:32 Review of Systems Review of Systems Systems Reviewed: All systems reviewed, normal except as documented Narrative Review of Systems: GEN: No fever, no chills, no weight loss EYES: No discharge, no visual changes, no pain HEENT: No ear pain, no congestion, no sore throat PULM: No shortness of breath, no cough, no congestion CV: No chest pain, no dyspnea on exertion, no palpitations GI: + nausea, + vomiting, no diarrhea, + right-sided abdominal pain, no constipation : No frequency, no urgency and no dysuria MUSC/SKEL: No joint pain, no back pain SKIN: No rash PSYCH: No hallucinations, no depression HEME/LYMPH: No easy bleeding or bruising tendencies NEURO: + generalized weakness, no headache Past Medical History Past Medical History RESPIRATORY: Positive Pulmonary Embolism HEMATOLOGIC: Positive Anemia OTHER HISTORY: Positive Hospitalization and Blood Transfusions Social History SMOKING STATUS: Never smoker SUBSTANCE USE: does not use ALCOHOL: Never ED Exam Narrative Physical exam: GENERAL APPEARANCE: alert and oriented x 4, well-developed, well-nourished VITALS: All vitals were reviewed and the pulse ox is 94% on room air, which is normal according to my interpretation. HEENT: Normocephalic, atraumatic; pupils equal, round, reactive to light; EOMI; mucous membranes pink, moist; oropharynx clear NECK: Supple LUNGS: CTABL; no wheezes, no rales, no rhonchi HEART: Regular rate, regular rhythm; normal S1, S2; no murmurs ABDOMEN: distended; right-sided abdominal tenderness, no rebound; no masses, no organomegaly, no hernia BACK: no CVA tenderness EXTREMITIES: atraumatic; no edema NEUROLOGIC: awake; alert and oriented x4; cranial nerves II-XII grossly intact; no focal sensory or motor deficits PSYCHIATRIC: appropriate mood and affect SKIN: warm, dry, normal color; no rashes Course Quality Measures none Orders Category Date Time Status COVID-19 Screening Questionnaire NOW Care 01/16/25 21:[address] Screening NOW Care 01/16/25 08:21 Completed Decision to Admit X1 Care 01/16/25 21:15 Completed MRI Screening NOW Care 01/16/25 14:[address] abdomen pelvis w con Stat Exams 01/16/25 08:21 Completed MR MRCP Stat Exams 01/17/25 Completed NM HIDA w pharm Stat Exams 01/16/25 14:53 Completed US gall bladder Stat Exams 01/16/25 06:46 Completed Blood Culture (Lab) Stat Lab 01/16/25 23:12 Completed CBC Stat Lab 01/16/25 06:56 Completed CMP [Comprehensive Metabolic Panel] Stat Lab 01/16/25 06:56 Completed HCG Qualitative,Urine Stat Lab 01/16/25 14:20 Completed HCG,Qualitative Serum Stat Lab 01/16/25 06:56 Completed Lipase Stat Lab 01/16/25 06:56 Completed UA [Urinalysis] Stat Lab 01/16/25 14:20 Completed Urine Culture Stat Lab 01/16/25 14:20 Completed HYDROcodone/APAP 10/325 [Sharon 10/325] Med 01/16/25 06:46 Discontinued 1 tab PO X1 ONE HYDROmorphone INJ [Dilaudid Inj] Med 01/16/25 14:01 Discontinued 1 mg IVP X1 ONE HYDROmorphone INJ [Dilaudid Inj] Med 01/16/25 18:12 Discontinued 1 mg IVP X1 ONE HYDROmorphone INJ [Dilaudid Inj] Med 01/16/25 21:04 Discontinued 1 mg IVP X1 ONE Ketorolac Inj [Toradol Inj] Med 01/16/25 21:04 Discontinued 30 mg IVP X1 ONE Metoclopramide [Reglan] Med 01/16/25 06:46 Discontinued 10 mg PO X1 ONE Morphine Inj Med 01/16/25 06:51 Discontinued 4 mg IVP X1 ONE Ondansetron Inj [Zofran Inj] Med 01/16/25 06:51 Discontinued 4 mg IVP X1 ONE Ondansetron Inj [Zofran Inj] Med 01/16/25 14:01 Discontinued 4 mg IVP X1 ONE Ondansetron Inj [Zofran Inj] Med 01/16/25 21:04 Discontinued 4 mg IVP X1 ONE Piper/Tazo 3.375 gm Premix [Zosyn] Med 01/16/25 21:10 Discontinued 3.375 gm in 50 ml IV X1 Sincalide Inj [Kinevac Inj] Med 01/16/25 03:44 Discontinued 5 mcg .ROUTE .STK-MED ONE Sodium Chloride 0.9% 1000 ml [Ns] 1,000 ml Med 01/16/25 07:25 Discontinued IV 999 mls/hr Sterile Water 20 ml Med 01/16/25 03:44 Discontinued .ROUTE .STK-MED Vital Signs Vital signs: Vital Signs Temperature 98.7 F 01/16/25 06:37 Pulse Rate 120 H 01/16/25 06:37 Respiratory Rate 20 01/16/25 06:37 Blood Pressure 124/85 H 01/16/25 06:37 Pulse Oximetry (%) 94 L 01/16/25 06:37 Oxygen Delivery Method Room Air 01/16/25 06:37 Discharge Plan Plan Patient Disposition: Admit Acute Care w/in Hospital Problem List Clinical Impression: Acute cholecystitis, Metastasis, Pneumonia, Pelvic mass MDM Narrative MDM hospital course: I, Radha Schreiber, am scribing for and in the presence of Dr. Cedeno. Clinical Information Provided by patient, spouse and family Medical Records Reviewed [facility] Meds/Rx Considered, not Ordered None Labs/Rad/Tests considered, not Ordered None Chronic Illness/Social Conditions Add or document further as needed: uterine cancer that has spread to the stomach Lab Interpretation Labs: other (pending) Imaging Imaging interpretation: other (pending MRCP and HIDA) Radiology reports / interpretation(s): Procedure(s): US gall bladder Accession Number(s): [id number] cc: Christopher Hitchcock; Narciso Dick MD~ Examination: Abdomen sonogram, Limited Date and time of exam: January 16, 2025 0732 hours INDICATIONS: Right upper abdominal pain and vomiting beginning 2 weeks ago, gallbladder wall thickening on CT abdomen study January 08, 2025 Technique: Real-time mack scale transabdominal sonographic images of the upper abdomen obtained. Findings: Gallstones Gallbladder wall 0.43 cm no edema Common bile duct 0.6 cm no stones Pancreatic head 2.4 cm Liver 15.1 cm irregular contour with mild ascites Normal hepatopedal portal venous flow Patent IVC IMPRESSION: Cholelithiasis Thickening of the gallbladder wall 0.43 cm, consider HIDA scan or MRCP follow-up Cirrhosis Mild ascites Dictated By: Narciso Dick MD Procedure(s): CT abdomen pelvis w con Accession Number(s): [id number] cc: Jennifer Higginbotham NP; Narciso Dick MD; Margaret Cedeno MD~ Examination: CT abdomen with intravenous contrast CT pelvis with intravenous contrast 2-D coronal reconstructions 2-D sagittal reconstructions Date and time of exam:January 16, [address] chest abdomen pelvis January 08, 2025 INDICATIONS: Right upper abdominal pain nausea vomiting beginning one month ago, diagnosis malignant neoplasm uterus, pulmonary nodular metastatic disease malignant ascites large pelvic abdominal mass on CT chest abdomen pelvis January 08, 2025. CTDI: vol (mGy) 15.5 DLP: (mGycm) 976 Technique: Multiple axial sections of the abdomen and pelvis have been obtained. 64 slice high-resolution scanner used. 3 mm axial sections have been obtained, post intravenous injection 60 cc [id number] 2-D sagittal, coronal reconstructions obtained. Low dose protocols were performed. One or more of the following dose reduction techniques were used; automated exposure control, adjustment of the mA and/or KV according to patient size, use of iterative reconstruction technique. Findings: Pulmonary nodules in the lower lung zones, including 8 mm axial image 2 Pneumonia versus atelectasis in the right midlung image 23 Pneumonia right base Moderate right pleural effusion Liver irregular in contour with fatty infiltration Cholelithiasis Spleen not enlarged Mild malignant ascites Again noted septated necrotic mass in the pelvis extending into the abdomen, mediolateral dimension at least 25 cm, cephalocaudad dimension at least 27 cm anterior posterior dimension at least 17 cm No bowel obstruction Aorta normal size Normal appendix Contracted urinary bladder Prominent osteopenia IMPRESSION: Metastatic pulmonary nodules Pneumonia right base Primary hepatocellular disease Cholelithiasis Very large septated necrotic mass in the pelvis extending into the abdomen, 25 x 27 x 17 cm Mild malignant ascites Dictated By: Narciso Dick MD Medication Administration(s) Medication Administration History Discontinued Medications Acetaminophen (Acetaminophen 325 Mg Tablet) 650 mg PO Q6H PRN PRN Reason: Fever >100.3 or pain Stop: 02/15/25 23:08 Acetaminophen (Acetaminophen 325 Mg Tablet) 650 mg PO Q6H PRN PRN Reason: Fever >100.3 or pain(1-3) Stop: 02/15/25 23:08 Hydrocodone Bitart/Acetaminophen (Hydrocodone/Apap 10/325 Tab) 1 tab PO X1 ONE Stop: 01/16/25 06:47 Last Admin: 01/16/25 08:29 Dose: Not Given Documented By: TAYLA Non-Admin Reason: Cancelled by Provider Bisacodyl (Bisacodyl 10 Mg Supp) 10 mg WI QDAY PRN; Protocol PRN Reason: Constipation Stop: 02/25/25 12:47 Last Admin: 01/26/25 13:58 Dose: 10 mg Documented By: DAYANNA Enoxaparin Sodium (Enoxaparin Sod Inj 40 Mg/0.4 Ml Syringe) 40 mg SC QDAY MARU Stop: 01/31/25 08:59 Last Admin: 01/27/25 08:12 Dose: 40 mg Documented By: Admin: 01/26/25 08:33 Dose: 40 mg Documented By: Admin: 01/25/25 08:11 Dose: 40 mg Documented By: Admin: 01/24/25 08:10 Dose: 40 mg Documented By: Admin: 01/23/25 09:58 Dose: 40 mg Documented By: Admin: 01/22/25 09:03 Dose: 40 mg Documented By: Admin: 01/21/25 10:38 Dose: 40 mg Documented By: Admin: 01/20/25 08:59 Dose: 40 mg Documented By: Admin: 01/19/25 09:07 Dose: Not Given Documented By: DELISA Non-Admin Reason: Held for Procedure Admin: 01/17/25 09:17 Dose: 40 mg Documented By: PRIYANKA Fentanyl Citrate (Fentanyl Cit Inj 50 Mcg/Ml Amp 2ml) Confirm Administered Dose 200 mcg .ROUTE .STK-MED ONE Stop: 01/19/25 09:58 Last Admin: 01/19/25 11:46 Dose: Not Given Documented By: EC Non-Admin Reason: Duplicate Medication on eMAR Fentanyl Citrate (Fentanyl Cit Inj 50 Mcg/Ml Amp 2ml) 100 mcg IVP X1 ONE Stop: 01/19/25 10:48 Last Admin: 01/19/25 10:47 Dose: 100 mcg Documented By: EC Hydromorphone HCl (Hydromorphone Inj 2 Mg/Ml Vial) 1 mg IVP X1 ONE Stop: 01/16/25 14:02 Last Admin: 01/16/25 14:14 Dose: 1 mg Documented By: RD Hydromorphone HCl (Hydromorphone Inj 2 Mg/Ml Vial) 1 mg IVP X1 ONE Stop: 01/16/25 18:13 Last Admin: 01/16/25 18:37 Dose: 1 mg Documented By: TAYLA Hydromorphone HCl (Hydromorphone Inj 2 Mg/Ml Vial) 1 mg IVP X1 ONE Stop: 01/16/25 21:05 Last Admin: 01/16/25 22:50 Dose: 1 mg Documented By: ALYSHA Sodium Chloride (Ns) 1,000 mls @ 999 mls/hr IV .Q1H1M ONE Stop: 01/16/25 08:25 Last Infusion: 01/16/25 09:35 Dose: Infused Documented By: Admin: 01/16/25 08:28 Dose: 999 mls/hr Documented By: TAYLA Sterile Water (Sterile Water) Confirm Administered Dose 20 mls @ ud .ROUTE .STK-MED ONE Stop: 01/16/25 03:45 Last Admin: 01/16/25 18:40 Dose: Not Given Documented By: TAYLA Non-Admin Reason: Discontinued Piperacillin/Tazobactam/Dextrose (Zosyn) 3.375 gm in 50 mls @ 100 mls/hr IV X1 ONE Stop: 01/16/25 21:39 Last Infusion: 01/16/25 23:56 Dose: Infused Documented By: Admin: 01/16/25 23:26 Dose: 100 mls/hr Documented By: ALYSHA Ceftriaxone Sodium/Dextrose (Rocephin/D5w 1gm Iv Premix) 1 gm in 50 mls @ 100 mls/hr IV QDAY MARU Stop: 01/23/25 23:17 Last Admin: 01/23/25 09:58 Dose: 100 mls/hr Documented By: Infusion: 01/22/25 09:33 Dose: Infused Documented By: Admin: 01/22/25 09:03 Dose: 100 mls/hr Documented By: Infusion: 01/21/25 11:08 Dose: Infused Documented By: Admin: 01/21/25 10:38 Dose: 100 mls/hr Documented By: Infusion: 01/20/25 09:29 Dose: Infused Documented By: Admin: 01/20/25 08:59 Dose: 100 mls/hr Documented By: Infusion: 01/19/25 09:31 Dose: Infused Documented By: Admin: 01/19/25 09:01 Dose: 100 mls/hr Documented By: Infusion: 01/18/25 10:10 Dose: Infused Documented By: Admin: 01/18/25 09:40 Dose: 100 mls/hr Documented By: Infusion: 01/17/25 09:47 Dose: Infused Documented By: Admin: 01/17/25 09:17 Dose: 100 mls/hr Documented By: Infusion: 01/17/25 01:55 Dose: Infused Documented By: Admin: 01/17/25 01:25 Dose: 100 mls/hr Documented By: CG Metronidazole (Flagyl 500 Mg Iv) 500 mg in 100 mls @ 200 mls/hr IV Q8HR MARU Stop: 01/23/25 23:18 Last Admin: 01/23/25 22:58 Dose: 200 mls/hr Documented By: Infusion: 01/23/25 14:07 Dose: Infused Documented By: Admin: 01/23/25 13:37 Dose: 200 mls/hr Documented By: Infusion: 01/23/25 05:36 Dose: Infused Documented By: Admin: 01/23/25 05:06 Dose: 200 mls/hr Documented By: Infusion: 01/22/25 22:41 Dose: Infused Documented By: Admin: 01/22/25 22:11 Dose: 200 mls/hr Documented By: Infusion: 01/22/25 13:53 Dose: Infused Documented By: Admin: 01/22/25 13:23 Dose: 200 mls/hr Documented By: Infusion: 01/22/25 05:47 Dose: Infused Documented By: Admin: 01/22/25 05:17 Dose: 200 mls/hr Documented By: Infusion: 01/21/25 21:32 Dose: Infused Documented By: Admin: 01/21/25 21:02 Dose: 200 mls/hr Documented By: Infusion: 01/21/25 14:37 Dose: Infused Documented By: Admin: 01/21/25 14:07 Dose: 200 mls/hr Documented By: Infusion: 01/21/25 06:10 Dose: Infused Documented By: Admin: 01/21/25 05:40 Dose: 200 mls/hr Documented By: Infusion: 01/20/25 21:48 Dose: Infused Documented By: Admin: 01/20/25 21:18 Dose: 200 mls/hr Documented By: Infusion: 01/20/25 13:33 Dose: Infused Documented By: Admin: 01/20/25 13:03 Dose: 200 mls/hr Documented By: Infusion: 01/20/25 05:50 Dose: Infused Documented By: Admin: 01/20/25 05:20 Dose: 200 mls/hr Documented By: Infusion: 01/19/25 21:43 Dose: Infused Documented By: Admin: 01/19/25 21:13 Dose: 200 mls/hr Documented By: Infusion: 01/19/25 16:19 Dose: Infused Documented By: Admin: 01/19/25 15:49 Dose: 200 mls/hr Documented By: Infusion: 01/19/25 05:40 Dose: Infused Documented By: Admin: 01/19/25 05:10 Dose: 200 mls/hr Documented By: Infusion: 01/18/25 21:31 Dose: Infused Documented By: Admin: 01/18/25 21:01 Dose: 200 mls/hr Documented By: Infusion: 01/18/25 13:45 Dose: Infused Documented By: Admin: 01/18/25 13:15 Dose: 200 mls/hr Documented By: SL Infusion: 01/18/25 06:05 Dose: Infused Documented By: Admin: 01/18/25 05:35 Dose: 200 mls/hr Documented By: Infusion: 01/17/25 22:45 Dose: Infused Documented By: Admin: 01/17/25 22:15 Dose: 200 mls/hr Documented By: Infusion: 01/17/25 15:29 Dose: Infused Documented By: Admin: 01/17/25 14:59 Dose: 200 mls/hr Documented By: Infusion: 01/17/25 05:54 Dose: Infused Documented By: Admin: 01/17/25 05:24 Dose: 200 mls/hr Documented By: ALYSHA(2) Infusion: 01/17/25 02:44 Dose: Infused Documented By: Admin: 01/17/25 02:14 Dose: 200 mls/hr Documented By: CG Promethazine HCl 25 mg/ Sodium (Chloride) 51 mls @ 2.5 mls/min IV Q6HR PRN PRN Reason: NAUSEA OR VOMITING Stop: 02/22/25 11:11 Promethazine HCl 25 mg/ Sodium (Chloride) 51 mls @ 2.5 mls/min IV Q6HR PRN PRN Reason: NAUSEA OR VOMITING Stop: 02/22/25 11:11 Last Admin: 01/27/25 19:19 Dose: 2.5 mls/min Documented By: Infusion: 01/27/25 05:17 Dose: Infused Documented By: Admin: 01/27/25 04:56 Dose: 2.5 mls/min Documented By: Infusion: 01/25/25 17:22 Dose: Infused Documented By: Admin: 01/25/25 17:01 Dose: 2.5 mls/min Documented By: Infusion: 01/24/25 09:23 Dose: Infused Documented By: Admin: 01/24/25 09:02 Dose: 2.5 mls/min Documented By: Infusion: 01/23/25 20:35 Dose: Infused Documented By: Admin: 01/23/25 20:14 Dose: 2.5 mls/min Documented By: Infusion: 01/23/25 12:19 Dose: Infused Documented By: Admin: 01/23/25 11:58 Dose: 2.5 mls/min Documented By: ASHLEY Ceftriaxone Sodium/Dextrose (Rocephin/D5w 1gm Iv Premix) 1 gm in 50 mls @ 100 mls/hr IV QDAY [facility] Stop: 01/31/25 08:59 Last Admin: 01/27/25 08:13 Dose: 100 mls/hr Documented By: Infusion: 01/26/25 09:04 Dose: Infused Documented By: Admin: 01/26/25 08:34 Dose: 100 mls/hr Documented By: Infusion: 01/25/25 08:41 Dose: Infused Documented By: Admin: 01/25/25 08:11 Dose: 100 mls/hr Documented By: AndrésT Infusion: 01/24/25 08:40 Dose: Infused Documented By: Admin: 01/24/25 08:10 Dose: 100 mls/hr Documented By: LUBNA Metronidazole (Flagyl 500 Mg Iv) 500 mg in 100 mls @ 200 mls/hr IV Q8HR MARU Stop: 01/31/25 05:59 Last Admin: 01/27/25 21:01 Dose: 200 mls/hr Documented By: Infusion: 01/27/25 14:27 Dose: Infused Documented By: Admin: 01/27/25 13:57 Dose: 200 mls/hr Documented By: [email or web address] Infusion: 01/27/25 05:54 Dose: Infused Documented By: [email or web address] Admin: 01/27/25 05:24 Dose: 200 mls/hr Documented By: Infusion: 01/26/25 23:36 Dose: Infused Documented By: Admin: 01/26/25 23:06 Dose: 200 mls/hr Documented By: Infusion: 01/26/25 14:29 Dose: Infused Documented By: Admin: 01/26/25 13:59 Dose: 200 mls/hr Documented By: [email or web address] Infusion: 01/26/25 05:59 Dose: Infused Documented By: [email or web address] Admin: 01/26/25 05:29 Dose: 200 mls/hr Documented By: Infusion: 01/25/25 21:43 Dose: Infused Documented By: Admin: 01/25/25 21:13 Dose: 200 mls/hr Documented By: Infusion: 01/25/25 14:24 Dose: Infused Documented By: Admin: 01/25/25 13:54 Dose: 200 mls/hr Documented By: Infusion: 01/25/25 05:46 Dose: Infused Documented By: Admin: 01/25/25 05:16 Dose: 200 mls/hr Documented By: Infusion: 01/24/25 21:52 Dose: Infused Documented By: Admin: 01/24/25 21:22 Dose: 200 mls/hr Documented By: Infusion: 01/24/25 13:37 Dose: Infused Documented By: Admin: 01/24/25 13:07 Dose: 200 mls/hr Documented By: Infusion: 01/24/25 06:16 Dose: Infused Documented By: Admin: 01/24/25 05:46 Dose: 200 mls/hr Documented By: BRODY Sodium Chloride (Ns) 250 mls @ 999 mls/hr IV .Q16M ONE Stop: 01/25/25 08:38 Last Admin: 01/25/25 09:56 Dose: 999 mls/hr Documented By: RAJAT Sodium Chloride (Ns) 1,000 mls @ 75 mls/hr IV .[id number] MARU Stop: 02/26/25 09:28 Ketorolac Tromethamine (Ketorolac Inj 30 Mg/Ml Vial) 30 mg IVP X1 ONE Stop: 01/16/25 21:05 Last Admin: 01/16/25 22:48 Dose: 30 mg Documented By: ALYSHA Lidocaine HCl (Lidocaine Inj Pf 1% 30 Ml Vial) Confirm Administered Dose 30 ml .ROUTE .STK-MED ONE Stop: 01/19/25 09:58 Last Admin: 01/19/25 11:46 Dose: Not Given Documented By: EC Non-Admin Reason: Duplicate Medication on eMAR Lidocaine HCl (Lidocaine Inj Pf 1% 5 Ml Vial) 5 ml INFL X1 ONE Stop: 01/19/25 11:24 Last Admin: 01/19/25 11:23 Dose: 5 ml Documented By: EC Magnesium Hydroxide (Milk Of Magnesia Susp 30 Ml Udc) 30 ml PO X1 ONE; Protocol Stop: 01/22/25 16:05 Last Admin: 01/22/25 16:49 Dose: 30 ml Documented By: HAY Metoclopramide HCl (Metoclopramide 5 Mg Tablet) 10 mg PO X1 ONE Stop: 01/16/25 06:47 Last Admin: 01/16/25 08:29 Dose: Not Given Documented By: RD Non-Admin Reason: Cancelled by Provider Metoclopramide HCl (Metoclopramide Inj 5 Mg/Ml Vial 2 Ml) 10 mg IVP Q6HR PRN; Protocol PRN Reason: NAUSEA OR VOMITING Stop: 02/17/25 17:49 Last Admin: 01/27/25 22:56 Dose: 10 mg Documented By: Admin: 01/27/25 14:44 Dose: 10 mg Documented By: Admin: 01/27/25 08:28 Dose: 10 mg Documented By: Admin: 01/26/25 20:33 Dose: 10 mg Documented By: Admin: 01/26/25 13:52 Dose: 10 mg Documented By: Admin: 01/26/25 06:56 Dose: 10 mg Documented By: Admin: 01/26/25 00:53 Dose: 10 mg Documented By: Admin: 01/25/25 13:53 Dose: 10 mg Documented By: Admin: 01/25/25 07:42 Dose: 10 mg Documented By: Admin: 01/24/25 22:44 Dose: 10 mg Documented By: Admin: 01/23/25 09:17 Dose: 10 mg Documented By: Admin: 01/22/25 19:51 Dose: 10 mg Documented By: Admin: 01/22/25 13:22 Dose: 10 mg Documented By: Admin: 01/22/25 01:00 Dose: 10 mg Documented By: Admin: 01/21/25 17:50 Dose: 10 mg Documented By: Admin: 01/21/25 10:38 Dose: 10 mg Documented By: Admin: 01/21/25 03:59 Dose: 10 mg Documented By: Admin: 01/20/25 20:36 Dose: 10 mg Documented By: Admin: 01/20/25 14:39 Dose: 10 mg Documented By: Admin: 01/20/25 03:40 Dose: 10 mg Documented By: Admin: 01/19/25 19:45 Dose: 10 mg Documented By: Admin: 01/19/25 08:59 Dose: 10 mg Documented By: Admin: 01/19/25 02:54 Dose: 10 mg Documented By: Admin: 01/18/25 18:08 Dose: 10 mg Documented By: HUSSEIN Morphine Sulfate (Morphine Sulf Inj 10 Mg/Ml Vial) 4 mg IVP X1 ONE Stop: 01/16/25 06:52 Last Admin: 01/16/25 08:28 Dose: 4 mg Documented By: TAYLA Morphine Sulfate (Morphine Sulf Inj 10 Mg/Ml Vial) 4 mg IVP Q4HR PRN PRN Reason: Pain Scale 6-10 (Severe Stop: 01/21/25 23:13 Last Admin: 01/17/25 05:06 Dose: 4 mg Documented By: ALYSHA Morphine Sulfate (Morphine Sulf Inj 10 Mg/Ml Vial) 4 mg IVP X1 ONE Stop: 01/17/25 06:45 Last Admin: 01/17/25 06:55 Dose: 4 mg Documented By: ALYSHA(2) Morphine Sulfate (Morphine Sulf Inj 10 Mg/Ml Vial) 5 mg IVP Q2HR PRN PRN Reason: pain Stop: 01/22/25 09:59 Morphine Sulfate (Morphine Sulf Inj 10 Mg/Ml Vial) 4 mg IVP Q2HR PRN PRN Reason: PAIN SCALE 4-10(Mod-Sev Stop: 01/22/25 09:59 Last Admin: 01/17/25 14:59 Dose: 4 mg Documented By: Admin: 01/17/25 12:17 Dose: 4 mg Documented By: Admin: 01/17/25 09:18 Dose: 4 mg Documented By: PRIYANKA Morphine Sulfate (Morphine Sulfate Pf 1 Mg/Ml [employer] Vial 30 Ml) 30 mg IV PER ORDER PRN; Protocol PRN Reason: PAIN Stop: 01/22/25 16:16 Last Admin: 01/21/25 23:10 Dose: 30 mg Documented By: HANSEL Co-signed By: CHARLEY Admin: 01/20/25 19:42 Dose: 30 mg Documented By: Co-signed By: RB Admin: 01/19/25 18:13 Dose: 30 mg Documented By: DELISA Co-signed By: YESSY Admin: 01/18/25 13:14 Dose: 30 mg Documented By: HUSSEIN Co-signed By: YESSY Admin: 01/17/25 16:27 Dose: 30 mg Documented By: PRIYANKA Co-signed By: RIOS Morphine Sulfate (Morphine Sulf Inj 10 Mg/Ml Vial) 2 mg IVP X1 ONE Stop: 01/22/25 19:27 Last Admin: 01/22/25 19:51 Dose: 2 mg Documented By: HANSEL Morphine Sulfate (Morphine Sulf 1 Mg/Ml [employer]ator Syringe 30 Ml) 30 mg IV PER ORDER PRN; Protocol PRN Reason: PAIN Stop: 01/27/25 20:11 Morphine Sulfate (Morphine Sulfate Pf 1 Mg/Ml [employer] Vial 30 Ml) 30 mg IV PER ORDER PRN; Protocol PRN Reason: PAIN Stop: 01/27/25 20:11 Last Admin: 01/23/25 15:50 Dose: 30 mg Documented By: TD Co-signed By: JUANITA Admin: 01/22/25 22:11 Dose: 30 mg Documented By: HANSEL Co-signed By: Morphine Sulfate (Morphine Sulfate Pf 1 Mg/Ml [employer] Vial 30 Ml) 30 mg IV PER ORDER PRN; Protocol PRN Reason: PAIN Stop: 01/27/25 20:11 Last Admin: 01/27/25 12:24 Dose: 30 mg Documented By: DAYANNA Co-signed By: URBANO Admin: 01/26/25 20:40 Dose: 30 mg Documented By: CTF Co-signed By: PG Admin: 01/26/25 06:55 Dose: 30 mg Documented By: CYN Co-signed By: URBANO Admin: 01/25/25 16:54 Dose: 30 mg Documented By: RAJAT Co-signed By: PRIYANKA Admin: 01/25/25 00:41 Dose: 30 mg Documented By: BRODY Co-signed By: RB Admin: 01/24/25 11:35 Dose: 30 mg Documented By: LUBNA Co-signed By: HAY Admin: 01/24/25 02:50 Dose: 30 mg Documented By: BRODY Co-signed By: NATALIYA Naloxone HCl (Naloxone Inj 0.4 Mg/Ml Vial) Confirm Administered Dose 0.4 mg .ROUTE .STK-MED ONE Stop: 01/19/25 09:58 Last Admin: 01/19/25 11:46 Dose: Not Given Documented By: EC Non-Admin Reason: Duplicate Medication on eMAR Ondansetron HCl (Ondansetron Inj 2 Mg/Ml Inj 2 Ml) 4 mg IVP X1 ONE; Protocol Stop: 01/16/25 06:52 Last Admin: 01/16/25 08:29 Dose: 4 mg Documented By: TAYLA Ondansetron HCl (Ondansetron Inj 2 Mg/Ml Inj 2 Ml) 4 mg IVP X1 ONE; Protocol Stop: 01/16/25 14:02 Last Admin: 01/16/25 14:13 Dose: 4 mg Documented By: TAYLA Ondansetron HCl (Ondansetron Inj 2 Mg/Ml Inj 2 Ml) 4 mg IVP X1 ONE; Protocol Stop: 01/16/25 21:05 Last Admin: 01/16/25 22:50 Dose: 4 mg Documented By: ALYSHA Comments: given over 2 min Ondansetron HCl (Ondansetron Inj 2 Mg/Ml Inj 2 Ml) 4 mg IVP Q6H PRN; Protocol PRN Reason: NAUSEA OR VOMITING Stop: 02/15/25 23:08 Last Admin: 01/18/25 17:38 Dose: 4 mg Documented By: Admin: 01/18/25 11:28 Dose: 4 mg Documented By: Admin: 01/18/25 05:34 Dose: 4 mg Documented By: Admin: 01/17/25 23:14 Dose: 4 mg Documented By: Admin: 01/17/25 16:58 Dose: 4 mg Documented By: Admin: 01/17/25 05:04 Dose: 4 mg Documented By: ALYSHA Pantoprazole Sodium (Pantoprazole Inj 40 Mg Vial) 40 mg IVP QDAY MARU Stop: 02/19/25 20:54 Last Admin: 01/27/25 08:12 Dose: 40 mg Documented By: Admin: 01/26/25 08:34 Dose: 40 mg Documented By: Admin: 01/25/25 08:11 Dose: 40 mg Documented By: Admin: 01/24/25 08:10 Dose: 40 mg Documented By: Admin: 01/23/25 09:58 Dose: 40 mg Documented By: Admin: 01/22/25 09:02 Dose: 40 mg Documented By: Admin: 01/21/25 10:37 Dose: 40 mg Documented By: Admin: 01/20/25 21:08 Dose: 40 mg Documented By: Scopolamine (Scopolamine 1 Mg Tdsy) 1 mg TOP X1 ONE Stop: 01/17/25 09:31 Last Admin: 01/17/25 09:39 Dose: 1 mg Documented By: PRIYANKA Scopolamine (Scopolamine 1 Mg Tdsy) 1 mg TOP Q3D MARU Stop: 02/17/25 21:59 Last Admin: 01/27/25 22:56 Dose: Not Given Documented By: CYN Non-Admin Reason: Other, see note Admin: 01/24/25 21:35 Dose: 1 mg Documented By: Admin: 01/21/25 21:01 Dose: 1 mg Documented By: Admin: 01/18/25 21:00 Dose: 1 mg Documented By: IBRAHIMA Sennosides (Senna Tablet) 1 tab PO QDAY PRN; Protocol PRN Reason: constipation Stop: 02/15/25 23:13 Last Admin: 01/26/25 13:58 Dose: 1 tab Documented By: Admin: 01/25/25 21:12 Dose: 1 tab Documented By: Admin: 01/24/25 14:46 Dose: 1 tab Documented By: Admin: 01/21/25 14:16 Dose: 1 tab Documented By: SHELBY Sennosides (Sennosides Syrup 8.8 Mg/5 Ml Udc) 8.8 mg PO X1 ONE; Protocol Stop: 01/21/25 13:20 Last Admin: 01/21/25 19:32 Dose: Not Given Documented By: HANSEL Non-Admin Reason: Pt nauseous at this time Sincalide (Sincalide Inj 5 Mcg Vial) Confirm Administered Dose 5 mcg .ROUTE .STK-MED ONE Stop: 01/16/25 03:45 Last Admin: 01/16/25 18:40 Dose: Not Given Documented By: RD Non-Admin Reason: Discontinued Diagnosis Differential diagnosis: uterine cancer, stomach cancer, GERD Most likely dx, and/or detailed dx discussion: No official diagnoses at this time, still pending diagnostic tests. Patient signout to the night clerk auditor provider. Dispositon Disposition: other (No final disposition plan at this time, still pending diagnostic tests. Patient signout to the night clerk auditor provider.) Disposition comments: 1800: Patient was signed out to Dr. Stafford Past medical, surgical, social and family history reviewed. Vitals and home medications reviewed. Results and treatment plan discussed. They will assume the care of the patient at this time and will follow the patient, pending remainder of diagnostic tests and final disposition.
[2025-01-16 08:15] VITALS: BP 115/75; PULSE 97; RESP 16; TEMP 36.9; O2SAT 94
--- NOTE | 2025-01-16 08:21 | XR_ITS ---
Examination: CT abdomen with intravenous contrast CT pelvis with intravenous contrast 2-D coronal reconstructions 2-D sagittal reconstructions Date and time of exam:January 16, [address] chest abdomen pelvis January 08, 2025 INDICATIONS: Right upper abdominal pain nausea vomiting beginning one month ago, diagnosis malignant neoplasm uterus, pulmonary nodular metastatic disease malignant ascites large pelvic abdominal mass on CT chest abdomen pelvis January 08, 2025. CTDI: vol (mGy) 15.5 DLP: (mGycm) 976 Technique: Multiple axial sections of the abdomen and pelvis have been obtained. 64 slice high-resolution scanner used. 3 mm axial sections have been obtained, post intravenous injection 60 cc [id number] 2-D sagittal, coronal reconstructions obtained. Low dose protocols were performed. One or more of the following dose reduction techniques were used; automated exposure control, adjustment of the mA and/or KV according to patient size, use of iterative reconstruction technique. Findings: Pulmonary nodules in the lower lung zones, including 8 mm axial image 2 Pneumonia versus atelectasis in the right midlung image 23 Pneumonia right base Moderate right pleural effusion Liver irregular in contour with fatty infiltration Cholelithiasis Spleen not enlarged Mild malignant ascites Again noted septated necrotic mass in the pelvis extending into the abdomen, mediolateral dimension at least 25 cm, cephalocaudad dimension at least 27 cm anterior posterior dimension at least 17 cm No bowel obstruction Aorta normal size Normal appendix Contracted urinary bladder Prominent osteopenia IMPRESSION: Metastatic pulmonary nodules Pneumonia right base Primary hepatocellular disease Cholelithiasis Very large septated necrotic mass in the pelvis extending into the abdomen, 25 x 27 x 17 cm Mild malignant ascites
[2025-01-16] MEDS: MORPHINE SULF INJ 10 MG/ML VIAL 4 MG IVP (08:28)
[2025-01-16] MEDS: SODIUM CHLORIDE 0.9% 1000 ML 1,000 ML 999 ML IV (08:28)
[2025-01-16] MEDS: ONDANSETRON INJ 2 MG/ML INJ 2 ML 4 MG IVP ×3 (08:29→22:50)
[2025-01-16 10:12] LABS: HCG,Qualitative Serum Negative
[2025-01-16 13:54] VITALS: BP 108/73; PULSE 96; RESP 16; TEMP 37.1; O2SAT 97
--- NOTE | 2025-01-16 13:59 | PC.NURSE ---
PATIENT STATES PAIN 9/10. INFORMED ER PROVIDER and received verbal order for 1mg hydromorphone.
[2025-01-16] MEDS: HYDROmorphone INJ 2 MG/ML VIAL 1 MG IVP ×3 (14:14→22:50)
[2025-01-16 14:45] LABS: Collection Type, Urine Clean Catch
--- NOTE | 2025-01-16 14:53 | XR_ITS ---
Examination: SENTHIL, hepatobiliary radioisotope scan Gallbladder ejection fraction study. Date and time of exam: January 16, 2025 1534 hours INDICATIONS: Abdominal pain nausea vomiting beginning 2 weeks ago Technique: 6.2 mCi of 99M Hepatolite administered. Serial imaging then obtained from immediate through 60 minutes. 2. mcg selective catheter Kinevac administered for gallbladder ejection fraction study. Findings: Radioisotope activity within the liver is reasonably homogenous. Gallbladder, common bile duct small bowel activity noted Impression: Gallbladder activity Abnormal gallbladder ejection fraction, 22%, normal greater than 35%
[2025-01-16 15:02] LABS: Bacteria,Urine Rare; Bilirubin,Urine Negative (Negative); Blood,Urine Negative (Negative); Color,Urine Yellow (Lt Yel-Yel); Glucose, Urine Negative (Negative); Hyaline Casts,Urine < 1 /hpf (0-1); Ketones,Urine Trace (Negative); Leukocyte Esterase,Urine Positive (Negative); Nitrite,Urine Negative (Negative); Protein,Urine Trace (Neg - Trace); RBC,Urine 5 /hpf (0-3); Specific Gravity,Urine 1.017 (1.001-1.035); Squamous Epithelial Cell,Urine 23 /hpf (0-5); Urobilinogen,Urine Negative mg/dL (0.0-1.0); WBC,Urine 11 /hpf (0-5)
[2025-01-16 15:06] LABS: HCG Qualitative,Urine Negative
[2025-01-16 15:18] LABS: Clarity,Urine Cloudy (Clear/Hazy)
[2025-01-16 18:41] VITALS: BP 113/67; PULSE 102; RESP 19; TEMP 36.9; O2SAT 98
--- NOTE | 2025-01-16 18:45 | PD.EDADDENDU ---
Emergency Room Addendum <Kasie Pacheco - Last Filed: 01/16/25 21:20> Addendum Narrative: I took over the care from previous shift physician at 6 PM on 01/16/2025. See previous notes for complete H & P and ED course. I reviewed all diagnostic test results. MRCP pending. My review of the [place] HIDA report is Gallbladder activity. Abnormal gallbladder ejection fraction, 22%, normal greater than 35%. My review of the Gall Bladder US report is Cholelithiasis. Thickening of the gallbladder wall 0.43 cm, consider HIDA scan or MRCP follow-up. Cirrhosis. Mild ascites. My review of the Abdomen/Pelvis CT reports is Metastatic pulmonary nodules. Pneumonia right base. Primary hepatocellular disease. Cholelithiasis. Very large septated necrotic mass in the pelvis extending into the abdomen, 25 x 27 x 17 cm. Mild malignant ascites. Blood tests and urine tests Diagnoses include: Treatment here included Reglan, Morphine, IV fluid, Zofran, Dilaudid, Hydrocodone 21:13 I discussed the case with our hospitalist, Dr. Owusu, about the presentation and exam and diagnostics and treatments here. And need of further care in the hospital. Will accept the patient. Javed Stafford MD <Javed Stafford MD - Last Filed: 01/16/25 22:32> Addendum Narrative: I took over the care from previous shift physician (Dr. Patel) at 6 PM on 01/16/2025. See previous notes for complete H & P and ED course. Patient has history of metastatic uterine cancer. Treated with surgery and chemotherapy and radiation in [place] in 2022. Has known new mass in the lower abdomen with pain for many months. In the past couple weeks, she reports intractable upper abdominal pain and vomiting and anorexia and inability to sleep due to the pain. I reviewed all diagnostic test results. My review of the [place] HIDA report is: Abnormal gallbladder ejection fraction, 22%, normal greater than 35%. My review of the Gall Bladder US report is: Cholelithiasis with thickening of the gallbladder wall. My review of the Abdomen/Pelvis CT report is: Metastatic pulmonary nodules. Pneumonia right base. Primary hepatocellular disease. Cholelithiasis. Very large septated necrotic mass in the pelvis extending into the abdomen, Mild malignant ascites. Blood tests and urine tests remarkable for WBC 11.6. Diagnoses include: Acute cholecystitis, pneumonia, pelvic mass, metastasis. Treatment here from me included Toradol, Dilaudid, Zofran, and Zosyn. 21:13 I discussed the case with our surgeon and our hospitalist about the presentation and exam and diagnostics and treatments here. And need of further care in the hospital. Will accept the patient. Javed Stafford MD
--- NOTE | 2025-01-16 19:30 | PC.NURSE ---
Hand Stone Polisher assumes care of patient at this time, pt A/O x 3 with c/o abd pain and rates pain 3/10 and states pain is acceptable at this time. Pt bed in low position and locked with s/s rails up x 2.
[2025-01-16 22:48] VITALS: TEMP 37.7
[2025-01-16] MEDS: KETOROLAC INJ 30 MG/ML VIAL IVP (22:48)
--- NOTE | 2025-01-16 23:23 | ESHP_ITS ---
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 Abdominal pain is diffuse with more severity in right upper quadrant (10/10) also radiating to left quadrant. She is unable to tolerate any of solids or liquids. States that if she tries to drink any water it resulted in immediate vomiting. Vomitus is green in color. She endorses weight loss of approximately 20 pounds since October of this year. She denies any fever, chills, diarrhea. Her last bowel movement was this past Wednesday. Endorses dysuria and some dull pelvic pain, no vaginal bleeding. In regards to patient's history of cancer, in 2022 she was seen by [facility] [employer] Dr. Dinh. He did laparoscopic supracervical hysterectomy with bilateral salpingectomy with surgical pathology report of uterine leiomyosarcoma. Patient was referred to oncologist in [place]. In July 2024 she underwent 18 rounds of chemotherapy. Has been unable to follow-up with oncology in the year of 2024 due to insurance issues. She ended up going to [place] in October 2024 due to worsening abdominal pain. Additional imaging showed metastases to the intestines. In ED, BP 124/85, HR 120, RR 20, afebrile. CBC mild leukocytosis 11.6, hemoglobin 9.8 stable, MCV 88. Potassium 3.5, sodium 135, creatinine 1.1. Ultrasound of the gallbladder shows cholelithiasis, thickening of gallbladder wall. Follow-up HIDA confirms gallbladder activity with EF of 22%. CT A/P noted septated necrotic mass in the pelvis extending into abdomen, negative for SBO, metastatic pulmonary nodules, pneumonia on the right base. She was given IV morphine 4mg x1, IV dilauidid 1 mgx3, metoclopramide 10mg x1, Zofran IV 4mg x3, Zosyn 3.375gm x1. Gen surgery Dr. Ramos was consulted. Patient to be admitted for evaluation of surgery vs possible drainge for possible cholecystitis. PMH: as noted above PSH: as noted above FamHx: non significant Social: unemployed, deneis smoking, denies drinking Meds: none Allergies: NKDA Review of Systems Review of Systems Systems Reviewed: All systems reviewed, normal except as documented Exam Vital Signs Temp Pulse Resp BP Pulse Ox O2 Del Method O2 Flow Rate 99.8 F 102 H 19 113/67 98 Nasal Cannula 2 01/16/25 22:48 01/16/25 18:41 01/16/25 18:41 01/16/25 18:41 01/16/25 18:41 01/16/25 18:41 01/16/25 18:41 Narrative Exam General: Middle age female, obese, distress from pain and vomiting, cooperative HEENT: NCAT, No JVD noted. Mucosa dry. Pupils are equal and reactive to light bilaterally Cardiovascular: Normal S1 and S2. Regular rate and rhythm. Respiratory: Lungs are clear to auscultation bilaterally. No wheezing or crackles heard. Abdomen: Soft, diffuse tenderness, distended, no bowel sounds auscultated. Skin: Warm to touch, dry, no rashes noted Musculoskeletal: No gross injuries. Able to move all 4 extremities. No pitting edema Neuro: Alert and oriented x3. No focal neuro deficits. Psych: Normal affect and mood Results: Labs 01/16/25 06:56 01/16/25 06:56 Labs: Short CBC 01/16/25 Range/Units 06:56 WBC 11.6 H (3.6-11.0) Thou/mm3 Hgb 9.8 L (12.0-16.0) g/dL Hct 30.3 L (36.0-46.0) % Plt Count 291 D (140-440) Thou/mm3 BMP 01/16/25 06:56 Sodium 135 L Potassium 3.5 Chloride 99 Carbon Dioxide 24.7 BUN 9 Creatinine 1.1 Glucose 94 Calcium 8.8 Liver Function 01/16/25 Range/Units 06:56 Total Bilirubin 0.8 (0.3-1.2) mg/dL AST 27 (0-34) U/L ALT < 7 L (10-49) U/L Alkaline Phosphatase 103 (46-116) U/L Albumin 3.5 (3.5-5.0) gm/dL Urine 01/16/25 Range/Units 14:20 Urine Color Yellow (Lt Yel-Yel) Urine Clarity Cloudy A (Clear/Hazy) Urine pH 6.0 (5.0-7.0) Ur Specific [place] 1.017 (1.001-1.035) Urine Protein Trace (Neg - Trace) Urine Glucose (UA) Negative (Negative) Quality Measures Quality Measures none Medications Home Medications and Allergies Allergies Allergy/AdvReac Type Severity Reaction Status Date / Time No Known Allergies Allergy Verified 01/16/25 06:32 Visit Medications Acetaminophen (Acetaminophen 325 Mg Tablet) 650 mg PO Q6H PRN PRN Reason: Fever >100.3 or pain Stop: 02/15/25 23:08 Enoxaparin Sodium (Enoxaparin Sod Inj 40 Mg/0.4 Ml Syringe) 40 mg SC QDAY MARU Stop: 01/31/25 08:59 Ceftriaxone Sodium/Dextrose (Rocephin/D5w 1gm Iv Premix) 1 gm in 50 mls @ 100 mls/hr IV QDAY MARU Stop: 01/23/25 23:17 Metronidazole (Flagyl 500 Mg Iv) 500 mg in 100 mls @ 200 mls/hr IV Q8HR MARU Stop: 01/23/25 23:18 Morphine Sulfate (Morphine Sulf Inj 10 Mg/Ml Vial) 4 mg IVP Q4HR PRN PRN Reason: Pain Scale 6-10 (Severe Stop: 01/21/25 23:13 Ondansetron HCl (Ondansetron Inj 2 Mg/Ml Inj 2 Ml) 4 mg IVP Q6H PRN; Protocol PRN Reason: NAUSEA OR VOMITING Stop: 02/15/25 23:08 Sennosides (Senna Tablet) 1 tab PO QDAY PRN; Protocol PRN Reason: constipation Stop: 02/15/25 23:13 Discontinued Medications Hydrocodone Bitart/Acetaminophen (Hydrocodone/Apap 10/325 Tab) 1 tab PO X1 ONE Stop: 01/16/25 06:47 Last Admin: 01/16/25 08:29 Dose: Not Given Hydromorphone HCl (Hydromorphone Inj 2 Mg/Ml Vial) 1 mg IVP X1 ONE Stop: 01/16/25 14:02 Last Admin: 01/16/25 14:14 Dose: 1 mg Hydromorphone HCl (Hydromorphone Inj 2 Mg/Ml Vial) 1 mg IVP X1 ONE Stop: 01/16/25 18:13 Last Admin: 01/16/25 18:37 Dose: 1 mg Hydromorphone HCl (Hydromorphone Inj 2 Mg/Ml Vial) 1 mg IVP X1 ONE Stop: 01/16/25 21:05 Last Admin: 01/16/25 22:50 Dose: 1 mg Sodium Chloride (Ns) 1,000 mls @ 999 mls/hr IV .Q1H1M ONE Stop: 01/16/25 08:25 Last Infusion: 01/16/25 09:35 Dose: Infused Piperacillin/Tazobactam/Dextrose (Zosyn) 3.375 gm in 50 mls @ 100 mls/hr IV X1 ONE Stop: 01/16/25 21:39 Ketorolac Tromethamine (Ketorolac Inj 30 Mg/Ml Vial) 30 mg IVP X1 ONE Stop: 01/16/25 21:05 Last Admin: 01/16/25 22:48 Dose: 30 mg Metoclopramide HCl (Metoclopramide 5 Mg Tablet) 10 mg PO X1 ONE Stop: 01/16/25 06:47 Last Admin: 01/16/25 08:29 Dose: Not Given Morphine Sulfate (Morphine Sulf Inj 10 Mg/Ml Vial) 4 mg IVP X1 ONE Stop: 01/16/25 06:52 Last Admin: 01/16/25 08:28 Dose: 4 mg Ondansetron HCl (Ondansetron Inj 2 Mg/Ml Inj 2 Ml) 4 mg IVP X1 ONE; Protocol Stop: 01/16/25 06:52 Last Admin: 01/16/25 08:29 Dose: 4 mg Ondansetron HCl (Ondansetron Inj 2 Mg/Ml Inj 2 Ml) 4 mg IVP X1 ONE; Protocol Stop: 01/16/25 14:02 Last Admin: 01/16/25 14:13 Dose: 4 mg Ondansetron HCl (Ondansetron Inj 2 Mg/Ml Inj 2 Ml) 4 mg IVP X1 ONE; Protocol Stop: 01/16/25 21:05 Last Admin: 01/16/25 22:50 Dose: 4 mg Assessment & Plan Plan Karlene Carvalho is 44 yr female with PMH of 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 Abdominal pain is diffuse with more severity in right upper quadrant (10/10) also radiating to left quadrant. She is unable to tolerate any of solids or liquids. Gen surgery Dr. Ramos was consulted. Patient to be admitted for evaluation of surgery vs possible drainge for possible cholecystitis. #Abdominal pain #Intractable vomiting ddx: cholelithiasis, cholecystitis, necrotic mass, mets to intestinines. Abdominal pain is diffuse with more severity in right upper quadrant (10/10) also radiating to left quadrant. She is unable to tolerate any of solids or liquids. Mild leukocytosis 11.6, Ultrasound of the gallbladder shows cholelithiasis, thickening of gallbladder wall. Follow-up HIDA confirms gallbladder activity with EF of 22%. CT A/P noted septated necrotic mass in the pelvis extending into abdomen, negative for SBO, metastatic pulmonary nodules, pneumonia on the right base. She was given IV morphine 4mg x1, IV dilauidid 1 mgx3, metoclopramide 10mg x1, Zofran IV 4mg x3, Zosyn 3.375gm x1. -Surgery Dr. Ramos consulted. Possible surgery TBD vs IR placed drainage -IV Zofran -IV morphine 4mg q4hr for pain PRN -IV metronidazole 500mg TID -IV ceftriaxone 1g daily -clear liquid diet #Hx Intramural leiomyoma of uterus #Mets to lungs #Necrotic pelvic mass She is s/p laparoscopic supracervical hysterectomy with bilateral salpingectomy by Obgyn Dr. Dinh. Patient was getting treat in 2023 but unable to continue due to insurance issues. Went to [place] in October 2024. Imaging at that time showed mets to intestines. CT A/P shows mets to lungs and necrotic pelvic mass. -Consulted Dr. Stafford, appreciate recs -consider gynecology consult after surgical evaluation -monitor Health maintenance: Dispo: med surg, abdominal pain FEN: clear liquid DVT prophylaxis: Lovenox 40 CODE STATUS: Full code The patient's management plan was discussed with my attending physician Dr. Owusu. Maryuri Jean, PGY-1 Attending Provider Attestation/Addendum I have examined the patient, reviewed labs and imaging findings, discussed the case with the resident(s), and reviewed entered orders. I agree with the plan of care as outlined in this note, with these additional summaries/recommendations: After examination of the patient and review of the clinical data, I feel that this patient needs admission to the hospital for further treatment and evaluation. Patient is a pleasant 44-year-old female with a medical history of leiomyosarcoma of the uterus status post hysterectomy and received 18 rounds of chemotherapy but due to insurance issues has not seen oncology since August 2024, history of PE, chronic anemia, and anxiety who presents to [facility] emergency department on 01/16/2025 with chief complaint of abdominal pain. #Intractable nausea/vomiting #Intractable abdominal pain Per patient, pain was 10 out of 10 on admission and located mainly in the right upper quadrant that has progressively worsened x 2 days. Patient does endorse postprandial pain. Patient endorses intractable nausea, vomiting, abdominal pain and reports she has not had any oral intake in over 48 hours Possible symptoms are related to acute cholecystitis versus biliary dyskinesia versus biliary colic versus pelvic mass. Abdominal pain mostly in RUQ making pelvic mass less likely as etiology. Gallbladder ultrasound showed cholelithiasis and thickening of the gallbladder wall, CT abdomen and pelvis showed cholelithiasis, and HIDA scan did show gallbladder activity although decreased Plan: N.p.o., IV fluids, pain management. General surgery consulted, recommendations appreciated. Start IV antibiotics. Zofran as needed. #Metastatic leiomyosarcoma #Pelvic mass Per patient she was diagnosed with cancer on 07/2023 and was followed by Dr. Morris oncology in [place]. Last chemo session was in 2023 and patient has not seen an oncologist since August 2024 secondary to insurance issues. Per patient she has undergone total hysterectomy, chemotherapy and radiation in the past On admission CT abdomen and pelvis significant for metastatic pulmonary nodules, malignant ascites, and very large septated necrotic mass in the pelvis extending into the abdomen 25X 27X 17 cm Plan: Unclear if pelvic mass is contributing to patient's symptoms although less likely given her pain is located mostly in the right upper quadrant and has postprandial pain. Does not appear pelvic mass was present on 2023 imaging but has been present on previous imaging in December 2024. Given patient has been lost to follow-up secondary to insurance issues and now presenting with large necrotic pelvic mass, we will consult in-house oncology for further recommendations. Patient will be evaluated by general surgery. Consider gynecology consultation in AM. Pain management as needed. # Normocytic anemia Possibly secondary to anemia of chronic disease from underlying malignancy versus iron deficiency Patient denies blood in urine or stool On admission hemoglobin 9.8, hematocrit 30.3, and MCV 88 Plan: Order iron panel, monitor with daily hematology panel while hospitalized. Please see residents note for additional details and management. Dr. Umer MD
[2025-01-16] MEDS: PIPER/TAZO 3.375 GM PREMIX 3.375 GM/50 ML BAG IV (23:26)
[2025-01-16 23:48] VITALS: TEMP 37.1
[2025-01-17] VITALS (8 sets, daily range): BP systolic 107–116; BP diastolic 64–83; PULSE 78–128; RESP 16–24; TEMP 36.2–36.9; O2SAT 90–98; BMI 40.2; BMI 40.1
--- NOTE | 2025-01-17 | XR_ITS ---
MRI abdomen, without contrast. MRCP Date and time of exam: January 17, 2025 1359 hours Comparison May 09, 2024 on INDICATIONS: Diagnosis malignant neoplasm uterus, metastatic disease to lung and intestine, severe abdominal pain nausea vomiting beginning 3 weeks ago Technique: Multiple axial and coronal images of the abdomen have been obtained with the Siemens 1.5T MRI scanner. Images obtained included T1 weighted transverse images, T2-weighted transverse images, T2-weighted transverse images fat-suppressed, T2 weighted haste fat suppressed transverse images, T1 weighted images, in and out of phase images, T2-weighted coronal images, breath hold, T2 weighted haze coronal images as well as T2 weighted coronal thick slab images, MRCP. Findings: Mild right pleural disease No focal liver lesions Gallstones Gallbladder wall is not thickened There appears to be abrupt truncation of the common hepatic duct, coronal image 24 This may be secondary to the very large tumor mass in the pelvis extending into the upper abdomen Spleen is not enlarged No pancreatic mass Mild left hydronephrosis Aorta is not enlarged IMPRESSION: Cholelithiasis, negative for cholecystitis Abrupt truncation of the common hepatic duct which may relate to the very large tumor mass in the pelvis extending into the upper abdomen described on the CT abdomen pelvis study January 16, 2025
[2025-01-17] MEDS: cefTRIAXone/D5w 1gm IV premix 1 GM/50 ML BAG IV ×2 (01:25→09:17)
[2025-01-17] MEDS: metroNIDAZOLE/NS 500 MG IVPB 500 MG/100 ML BAG 200 MG IV ×4 (02:14→22:15)
[2025-01-17 03:31] LABS: COVID-19 Antigen (In-House) Negative (Negative)
[2025-01-17 04:33] LABS: Basophils % (Auto) 0 % (0-2.5); Eosinophils # (Auto) 0.2 Thou/mm3 (0.0-0.5); Eosinophils % (Auto) 2 % (0-10); Hematocrit 29.5 % (36.0-46.0); Hemoglobin 9.5 g/dL (12.0-16.0); Immature Granulocytes % (Auto) 0 % (0-0); Immature Granulocytes Auto 0.04 Thou/mm3 (0.00-0.00); Lymphocytes # (Auto) 1.6 Thou/mm3 (1.0-4.8); Lymphocytes % (Auto) 13 % (10-50); Mean Corpuscular HGB Conc 32.2 g/dl (31.0-37.0); Mean Corpuscular Hemoglobin 28.2 pg (25.0-35.0); Mean Corpuscular Volume 88 fL (80-100); Monocytes # (Auto) 0.9 Thou/mm3 (0.0-0.8); Monocytes % (Auto) 7 % (0-12); Neutrophils # (Auto) 9.1 Thou/mm3 (1.8-7.7); Neutrophils % (Auto) 77 % (37-80); Nucleated Red Blood Cell % 0 /100 WBC (0); Platelet Count 253 Thou/mm3 (140-440); RDW Standard Deviation 48.4 fL (36.4-46.3); Red Blood Count 3.37 Miln/mm3 (4.00-5.20); White Blood Count 11.8 Thou/mm3 (3.6-11.0)
[2025-01-17] MEDS: ONDANSETRON INJ 2 MG/ML INJ 2 ML 4 MG IVP ×3 (05:04→23:14)
--- NOTE | 2025-01-17 05:05 | PC.NURSE ---
Report called to floor nurseNadia RN
[2025-01-17] MEDS: MORPHINE SULF INJ 10 MG/ML VIAL 4 MG IVP ×5 (05:06→14:59)
[2025-01-17 05:07] LABS: Alanine Aminotransferase < 7 U/L (10-49); Albumin, Serum 3.3 gm/dL (3.5-5.0); Albumin/Globulin Ratio 0.9 (1.2-2.2); Alkaline Phosphatase 99 U/L (46-116); Anion Gap 10 (7-16); Aspartate Amino Transferase 26 U/L (0-34); BUN/Creatinine Ratio 9 Ratio (12-20); Bilirubin,Total 0.6 mg/dL (0.3-1.2); Blood Urea Nitrogen 11 mg/dL (9-23); Calcium 8.5 mg/dL (8.3-10.6); Calcium (Corrected) 9.1 mg/dL (8.5-10.1); Carbon Dioxide 25.5 mMol/L (20.0-31.0); Chloride 101 mMol/L (98-107); Creatinine (Component) 1.2 mg/dL (0.6-1.3); Estimated Creatinine Clearance 73.7 mL/min (>60); Globulin 3.7 gm/dL (2.3-3.5); Glucose 98 mg/dL (74-106); Magnesium 1.7 mg/dL (1.6-2.6); Osmolality,Calculated 271 (275-295); Phosphorous 3.4 mg/dL (2.4-5.1); Potassium 3.7 mMol/L (3.4-5.1); Sodium 136 mMol/L (136-145); eGFR 58 See Note
--- NOTE | 2025-01-17 07:33 | ESCONSULT_ITS ---
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 Dinh at [facility] At the time patient was having vaginal bleeding and thought to have leiomyoma of uterus. Patient was then followed by doctors in [facility] and between October 16 to August 15 got systemic chemo there. Records indicate the patient had disseminated cancer involving abdomen and lungs noted on PET scan of February 2024. Patient reportedly lost insurance and went to [place] for diagnostic tests but has not any cancer treatment since July 2024. Patient is now admitted with symptoms of abdominal pain nausea vomiting, CT scan 01/08/2025 showing progression of lung mets compared to prior CT scan with gallbladder thickening with gallstones mild malignant ascites and large pelvic abdominal mass depicted with areas of hemorrhage. Pelvic area revealed large septated necrotic mass extending to the abdomen 25 x 27 x 17 cm. HIDA scan gallbladder ejection fraction study revealed reduced ejection fraction of 22% normal greater than 35%. Patient is pending MRCP studies. Patient now referred for oncological consultation. cc:: cc: Kuldip Owusu MD Past Medical History Family History OTHER FAMILY HX: Denies family history of breast or uterine cancer Social History SOCIAL: Patient Divehi-speaking unemployed denies smoking drinking currently engaged to a partner Past Medical History Comments PMH COMMENT: Prior JORDAN/BSO and chemo for leiomyosarcoma with mets. Meds Home Medications and Allergies Home Medications ?Medication ?Instructions ?Recorded ?Confirmed ?Type No Known Home Medications 01/17/25/04/16 History Allergies Allergy/AdvReac Type Severity Reaction Status Date / Time No Known Allergies Allergy Verified 01/16/25 06:32 Exam Vital Signs Temp Pulse Resp BP Pulse Ox O2 Del Method O2 Flow Rate 98.4 F 111 H 18 115/82 95 Room Air 1 01/17/25 05:41 01/17/25 07:22 01/17/25 07:22 01/17/25 05:41 01/17/25 07:22 01/17/25 05:41 01/17/25 03:40 Narrative Exam Patient in moderate abdominal pain distress. Abdomen distended to obesity and ascites. Results Labs 01/17/25 04:15 01/17/25 04:15 Labs: Short CBC 01/17/25 Range/Units 04:15 WBC 11.8 H (3.6-11.0) Thou/mm3 Hgb 9.5 L (12.0-16.0) g/dL Hct 29.5 L (36.0-46.0) % Plt Count 253 D (140-440) Thou/mm3 BMP 01/16/25 01/17/25 06:56 04:15 Sodium 135 L 136 Potassium 3.5 3.7 Chloride 99 101 Carbon Dioxide 24.7 25.5 BUN 9 11 Creatinine 1.1 1.2 Glucose 94 98 Calcium 8.8 8.5 Liver Function 01/16/25 01/17/25 Range/Units 06:56 04:15 Total Bilirubin 0.8 0.6 (0.3-1.2) mg/dL AST 27 26 (0-34) U/L ALT < 7 L < 7 L (10-49) U/L Alkaline Phosphatase 103 99 (46-116) U/L Albumin 3.5 3.3 L (3.5-5.0) gm/dL Urine 01/16/25 Range/Units 14:20 Urine Color Yellow (Lt Yel-Yel) Urine Clarity Cloudy A (Clear/Hazy) Urine pH 6.0 (5.0-7.0) Ur Specific [place] 1.017 (1.001-1.035) Urine Protein Trace (Neg - Trace) Urine Glucose (UA) Negative (Negative) Assessment and Plan Additional Assessment & Plan Additional Plan: 1. History of supracervical JORDAN/BSO 05/27/2023 leiomyosarcoma. 2. Received adjuvant chemo between September 2023 through July 2024 at [facility] 3. Stopped cancer treatment due to insurance issues. Recent imaging study shows widespread mets involving lungs abdomen with a large pelvic mass 4. MRCP pending along with supportive care. Will follow. Thank you for allowing me to evaluate this patient.
[2025-01-17] MEDS: ENOXAPARIN SOD INJ 40 MG/0.4 ML SYRINGE SC (09:17)
--- NOTE | 2025-01-17 09:30 | PC.SS ---
Initial assessment: patient is a 44-year old female admitted for nausea and vomiting. Patient is alert and oriented. SW introduced self, role and reason for contact. Patient confirmed demographic information. Patient assigned her sister, Ning Nuñez as her emergency contact if necessary. Patient informs she is independent with ADL's and denies any use of DME. Patient informs she does not have a PCP at this time. Patient preferred pharmacy is [facility] in [place]. Patient informs she will return home upon discharge and has family available to transport her home. No needs identified. Patient declined community resources. D/c plan: Home Next of kin: Ning erwin
[2025-01-17] MEDS: SCOPOLAMINE 1 MG TDSY TOP (09:39)
--- NOTE | 2025-01-17 10:34 | ESPR_ITS ---
<Statement entered by Irma Jacob MD - 01/22/25 14:40> I reviewed above note and agree with findings and plans. I have also personally examined the patient with medicine team and went over assessment and plan with medical team including campus interviews intern and resident physician. Documentation for date of: 01/17/25 Subjective Subjective Interval history: Overnight admission. Seen and examined at bedside and patient's pain continues to wax and wane depending on when she gets her pain medication. Also endorses persistent nausea and had an episode of emesis prior to entering room. States that she had not been able to eat or drink much in the last 3 weeks due to her symptoms. Dr. Stafford is already seen her and will assist in managing patient's pain, currently on DROP HAMMER SET UP OPERATOR. Patient also seen by general surgery and given patient's history of metastatic cancer, she is not a candidate for surgical intervention and recommended percutaneous cholecystostomy drain that may help alleviate symptoms. MRCP showed cholelithiasis but no signs of cholecystitis; also showed abrupt truncation of common hepatic duct which may be related to large tumor mass in pelvis that extends into the upper abdomen. Continue pain management per recommendations from Dr. Stafford and patient will be n.p.o. after midnight for IR placement of percutaneous cholecystostomy tube. Exam Vital Signs Temp Pulse Resp BP Pulse Ox O2 Del Method O2 Flow Rate 97.2 F 78 19 113/82 95 Room Air 1 01/17/25 08:00 01/17/25 08:00 01/17/25 08:00 01/17/25 08:00 01/17/25 08:00 01/17/25 08:00 01/17/25 03:40 Narrative Exam General: AOx3, no acute distress, able to speak full sentences HEENT: NC/AT, mucous membranes moist, bilateral sclera anicteric Cardiovascular: regular rate and rhythm, S1/S2 present, no murmurs appreciated Pulmonary: clear to auscultation bilaterally, no rales/rhonchi/wheezes Abdominal: large abdomen, diffusely tender to palpation, firm, no rebound/guarding Musculoskeletal: normal ROM, no peripheral edema Skin: warm and dry, intact, no rashes Neuro: CN II-XII intact, no focal deficits Objective Labs 01/17/25 04:15 01/17/25 04:15 Labs: Laboratory Results - last 24 hr 05/01/17/25 01/17/25 14:20 02:48 04:15 WBC 11.8 H RBC 3.37 L Hgb 9.5 L Hct 29.5 L MCV 88 MCH 28.2 MCHC 32.2 RDW Std Deviation 48.4 H Plt Count 253 D Neut % (Auto) 77 Lymph % (Auto) 13 [place] % (Auto) 7 Eos % (Auto) 2 Baso % (Auto) 0 Neut # (Auto) 9.1 H Lymph # (Auto) 1.6 [place] # (Auto) 0.9 H Eos # (Auto) 0.2 Baso # (Auto) 0.0 Immature Gran # (Auto) 0.04 H Absolute Nucleated RBC 0.00 Immature Gran % 0 Nucleated RBC % 0 Sodium 136 Potassium 3.7 Chloride 101 Carbon Dioxide 25.5 Anion Gap 10 BUN 11 Creatinine 1.2 Estim Creat Clear Calc 73.7 eGFR 58 L BUN/Creatinine Ratio 9 L Glucose 98 Calculated Osmolality 271 L Calcium 8.5 Corrected Calcium 9.1 Phosphorus 3.4 Magnesium 1.7 Total Bilirubin 0.6 AST 26 ALT < 7 L Alkaline Phosphatase 99 Total Protein 7.0 Albumin 3.3 L Globulin 3.7 H Albumin/Globulin Ratio 0.9 L Ur Collection Type Clean Catch Urine Color Yellow Urine Clarity Cloudy A Urine pH 6.0 Ur Specific [place] 1.017 Urine Protein Trace Urine Glucose (UA) Negative Urine Ketones Trace Urine Blood Negative Urine Nitrite Negative Urine Bilirubin Negative Urine Urobilinogen (Auto) Negative Ur Leukocyte Esterase Positive Urine RBC 5 H Urine WBC 11 H Ur Squamous Epith Cells 23 H Urine Bacteria Rare Hyaline Casts < 1 Urine HCG, Qual Negative SARS-CoV-2 Ag (Rapid) Negative Quality Measures Quality Measures none Assessment & Plan Assessment Current Active Medications: Generic Name Dose Route Start Last Admin Trade Name Freq PRN Reason Stop Dose Admin Acetaminophen 650 mg 01/17/25 07:32 Acetaminophen 325 Mg Tablet PO 02/15/25 23:08 Q6H PRN Fever >100.3 or pain(1-3) Enoxaparin Sodium 40 mg 01/17/25 09:00 01/17/25 09:17 Enoxaparin Sod Inj 40 Mg/0.4 Ml Syringe SC 01/31/25 08:59 40 mg QDAY MARU Administration Ceftriaxone Sodium/Dextrose 1 gm in 50 mls @ 100 mls/hr 01/16/25 23:18 01/17/25 09:17 Rocephin/D5w 1gm Iv Premix IV 01/23/25 23:17 100 mls/hr QDAY MARU Administration Metronidazole 500 mg in 100 mls @ 200 mls/hr 01/16/25 23:19 01/17/25 05:24 Flagyl 500 Mg Iv IV 01/23/25 23:18 200 mls/hr Q8HR MARU Administration Morphine Sulfate 4 mg 01/17/25 09:02 01/17/25 09:18 Morphine Sulf Inj 10 Mg/Ml Vial IVP 01/22/25 09:59 4 mg Q2HR PRN Administration PAIN SCALE 4-10(Mod-Sev Ondansetron HCl 4 mg 01/16/25 23:09 01/17/25 05:04 Ondansetron Inj 2 Mg/Ml Inj 2 Ml IVP 02/15/25 23:08 4 mg Q6H PRN Administration NAUSEA OR VOMITING Protocol Sennosides 1 tab 01/16/25 23:14 Senna Tablet PO 02/15/25 23:13 QDAY PRN constipation Protocol Plan Karlene Carvalho, 44-year-old female with past medical history of leiomyosarcoma s/p supracervical hysterectomy s/p chemotherapy in 2023, 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 intake for three weeks prior to admission. #Cholelithiasis #Biliary dyskinesia #Intractable nausea/vomiting #Decreased p.o. intake Intractable N/V for three weeks with decreased p.o. intake. Gallbladder ultrasound showed cholelithiasis and thickening of gallbladder wall, CT abdomen and pelvis showed cholelithiasis, and HIDA scan showed EF 22%. MRCP also obtained that showed cholelithiasis but no signs of cholecystitis; also showed abrupt truncation of common hepatic duct which may be related to large tumor mass in pelvis that extends into the upper abdomen. T bili, ALP, and LFTs all within normal limits, no fevers, mild leukocytosis. ? General Surgery consulted, appreciate recommendations ? N.p.o. after midnight for IR guided percutaneous cholecystostomy ? Ceftriaxone 1 g IV daily ? Flagyl 500 mg IV every 8 hours ? Zofran as needed ? Follow-up urine and blood cultures #Metastatic leiomyosarcoma #Pelvic mass #Intractable abdominal pain Diagnosed with cancer on 07/[address] Morris oncology in [place]. Last chemo session was in 2023 and patient has not seen an oncologist since August 2024 secondary to insurance issues. Per patient she has undergone total hysterectomy, chemotherapy and radiation in the past. On admission, CT A/P significant for metastatic pulmonary nodules, malignant ascites, and very large septated necrotic mass in pelvis extending into abdomen 25 x 27 x 17 cm. ? Dr. Stafford consulted, appreciate recommendations ? Pain management: DROP HAMMER SET UP OPERATOR #Normocytic anemia Possibly secondary to anemia of chronic disease from underlying malignancy versus iron deficiency. Patient denies blood in urine or stool. On admission hemoglobin 9.8, hematocrit 30.3, and MCV 88. ? Monitor with daily hematology panel while hospitalized Hospital management: Disposition: Pending IR placement of percutaneous cholecystostomy tube Diet: Clear liquid, n.p.o. after midnight DVT prophylaxis: Enoxaparin held for procedure CODE STATUS: full code ----- Plan discussed with attending physician Dr. Cecil Alvarez MD PGY-1 Internal Medicine
--- NOTE | 2025-01-17 12:45 | PD.SURCONS ---
HPI Consult details Consult date: 01/17/25 Reason for consultation narrative: Abdominal pain History of present illness: 44-year-old female underwent JORDAN with bilateral salpingectomy about 2 years ago, pathology revealed leiomyosarcoma. Patient was referred and underwent chemotherapy administration. She was found to have pulmonary metastasis that has been getting progressively worse. She was admitted with worsening abdominal pain with nausea and vomiting. Ultrasound revealed gallstones. HIDA scan revealed biliary dyskinesia with ejection fraction of 22%. CT scan revealed a large 27 cm abdominal mass occupying most of the abdominal cavity. Review of Systems Constitutional Constitutional: Denies chills and Denies fever(s) Cardiovascular Cardiovascular: Denies chest pain Respiratory Respiratory: Denies cough Gastrointestinal Gastrointestinal: Reports abdominal pain, Reports nausea and Reports vomiting Genitourinary Genitourinary: Denies difficulty voiding Hematologic/Lymphatic Hematologic/Lymphatic: Denies easy bleeding and Denies easy bruising Meds Home Medications and Allergies Home Medications ?Medication ?Instructions ?Recorded ?Confirmed ?Type No Known Home Medications 01/17/25 01/17/25 History Allergies Allergy/AdvReac Type Severity Reaction Status Date / Time No Known Allergies Allergy Verified 01/16/25 06:32 Exam Vital Signs Temp Pulse Resp BP Pulse Ox O2 Del Method O2 Flow Rate 97.2 F 78 19 113/82 95 Room Air 1 01/17/25 08:00 01/17/25 08:00 01/17/25 08:00 01/17/25 08:00 01/17/25 08:00 01/17/25 08:00 01/17/25 03:40 Constitutional Constitutional: no acute distress Routine Abdominal Exam Comments: Abdomen is soft. Patient has large and hard mass occupying most of the abdomen Results Results: Imaging Imaging narrative: Abdominal ultrasound, HIDA scan and CT scan abdomen pelvis images reviewed, radiologist interpretation noted Assessment & Plan Additional Assessment Additional comments: Patient has very large abdominal mass occupying most of the abdomen with pulmonary metastasis. She also has gallstones without evidence of cholecystitis and biliary dyskinesia without evidence of cystic duct obstruction Plan MRCP will not provide additional diagnostic information not already known. Symptoms may be related to gallstones, in my opinion most of her symptoms are due to her large tumor burden. She may benefit from percutaneous cholecystostomy drain to alleviate some of her symptoms. She is not a candidate for surgical intervention.
--- NOTE | 2025-01-17 14:48 | PC.SS ---
Rounding note: pending surgery consult. Treating for nausea and vomiting. Possible need for discussion of hospice services.
[2025-01-17] MEDS: Morphine Sulfate PF 1 MG/ML PCA VIAL 30 ML 30 MG IV (16:27)
[2025-01-18] VITALS (11 sets, daily range): BP systolic 95–143; BP diastolic 67–90; PULSE 86–108; RESP 10–20; TEMP 36–37.2; O2SAT 91–99
[2025-01-18] MEDS: ONDANSETRON INJ 2 MG/ML INJ 2 ML 4 MG IVP ×3 (05:34→17:38)
[2025-01-18] MEDS: metroNIDAZOLE/NS 500 MG IVPB 500 MG/100 ML BAG 200 MG IV ×3 (05:35→21:01)
[2025-01-18 05:58] LABS: INR 1.4 (0.9-1.3); Partial Thromboplastin Time 30.5 Seconds (22.0-36.0); Prothrombin Time 14.5 Seconds (9.0-12.2)
[2025-01-18 06:08] LABS: Basophils # (Auto) 0.1 Thou/mm3 (0.0-0.2); Basophils % (Auto) 0 % (0-2.5); Eosinophils # (Auto) 0.1 Thou/mm3 (0.0-0.5); Eosinophils % (Auto) 0 % (0-10); Hematocrit 26.5 % (36.0-46.0); Immature Granulocytes % (Auto) 1 % (0-0); Immature Granulocytes Auto 0.08 Thou/mm3 (0.00-0.00); Lymphocytes # (Auto) 2.9 Thou/mm3 (1.0-4.8); Lymphocytes % (Auto) 18 % (10-50); Mean Corpuscular HGB Conc 32.1 g/dl (31.0-37.0); Mean Corpuscular Hemoglobin 28.4 pg (25.0-35.0); Mean Corpuscular Volume 89 fL (80-100); Monocytes % (Auto) 6 % (0-12); Neutrophils # (Auto) 11.7 Thou/mm3 (1.8-7.7); Neutrophils % (Auto) 74 % (37-80); Nucleated Red Blood Cell % 0 /100 WBC (0); Platelet Count 348 Thou/mm3 (140-440); RDW Standard Deviation 49.1 fL (36.4-46.3); Red Blood Count 2.99 Miln/mm3 (4.00-5.20); White Blood Count 15.8 Thou/mm3 (3.6-11.0)
[2025-01-18 06:11] LABS: Hemoglobin 8.5 g/dL (12.0-16.0)
[2025-01-18 06:28] LABS: Alanine Aminotransferase < 7 U/L (10-49); Albumin, Serum 3.5 gm/dL (3.5-5.0); Albumin/Globulin Ratio 0.9 (1.2-2.2); Alkaline Phosphatase 106 U/L (46-116); Anion Gap 15 (7-16); Aspartate Amino Transferase 31 U/L (0-34); BUN/Creatinine Ratio 8 Ratio (12-20); Bilirubin,Total 0.7 mg/dL (0.3-1.2); Blood Urea Nitrogen 16 mg/dL (9-23); Calcium 8.4 mg/dL (8.3-10.6); Calcium (Corrected) 8.8 mg/dL (8.5-10.1); Carbon Dioxide 20.5 mMol/L (20.0-31.0); Chloride 97 mMol/L (98-107); Estimated Creatinine Clearance 49.9 mL/min (>60); Glucose 111 mg/dL (74-106); Osmolality,Calculated 266 (275-295); Potassium 3.8 mMol/L (3.4-5.1); Sodium 132 mMol/L (136-145); Total Protein 7.5 gm/dL (5.7-8.2); eGFR 31 See Note
--- NOTE | 2025-01-18 06:56 | PD.ONCPROG ---
Documentation for date of: 01/18/25 Subjective Subjective Interval history: Patient much more comfortable with SENIOR MANUFACTURING SUPERVISOR that has been initiated since yesterday. Exam Vital Signs Temp Pulse Resp BP Pulse Ox O2 Del Method O2 Flow Rate 98 F 94 20 114/74 95 Room Air 1 01/18/25 04:00 01/18/25 04:00 01/18/25 04:00 01/18/25 04:00 01/18/25 04:00 01/18/25 04:00 01/17/25 03:40 Narrative Exam Appears comfortable answering questions appropriately. Objective Labs 01/18/25 04:55 01/18/25 04:55 Labs: Laboratory Results - last 24 hr 01/18/25 04:55 WBC 15.8 H RBC 2.99 L Hgb 8.5 L Hct 26.5 L MCV 89 MCH 28.4 MCHC 32.1 RDW Std Deviation 49.1 H Plt Count 348 D Neut % (Auto) 74 Lymph % (Auto) 18 [place] % (Auto) 6 Eos % (Auto) 0 Baso % (Auto) 0 Neut # (Auto) 11.7 H Lymph # (Auto) 2.9 [place] # (Auto) 1.0 H Eos # (Auto) 0.1 Baso # (Auto) 0.1 Immature Gran # (Auto) 0.08 H Absolute Nucleated RBC 0.00 Immature Gran % 1 H Nucleated RBC % 0 PT 14.5 H INR 1.4 H APTT 30.5 Sodium 132 L Potassium 3.8 Chloride 97 L Carbon Dioxide 20.5 Anion Gap 15 BUN 16 Creatinine 2.0 H D Estim Creat Clear Calc 49.9 L eGFR 31 L BUN/Creatinine Ratio 8 L Glucose 111 H Calculated Osmolality 266 L Calcium 8.4 Corrected Calcium 8.8 Total Bilirubin 0.7 AST 31 ALT < 7 L Alkaline Phosphatase 106 Total Protein 7.5 Albumin 3.5 Globulin 4.0 H Albumin/Globulin Ratio 0.9 L Assessment & Plan A&P Narrative 1. History of supracervical JORDAN/BSO 05/27/2023 leiomyosarcoma. 2. Received adjuvant chemo between September 2023 through July 2024 at [facility] 3. Stopped cancer treatment due to insurance issues. Recent imaging study shows widespread mets involving lungs abdomen with a large pelvic mass 4. Appearing comfortable this a.m. receiving SENIOR MANUFACTURING SUPERVISOR morphine. Awaiting IR placement of percutaneous cholecystostomy tube Time Spent With Patient Time: Total time spent is greater than 50% in coordination of care (as documented) at patient's floor/unit and/or counseling patient:
[2025-01-18] MEDS: cefTRIAXone/D5w 1gm IV premix 1 GM/50 ML BAG IV (09:40)
--- NOTE | 2025-01-18 10:15 | CHAP ---
Spoke with patient and her and prayed with them.
--- NOTE | 2025-01-18 11:10 | ESPR_ITS ---
<Statement entered by Irma Jacob MD - 01/22/25 14:42> I reviewed above note and agree with findings and plans. I have also personally examined the patient with medicine team and went over assessment and plan with medical team including internet retailer and resident physician. Documentation for date of: 01/18/25 Subjective Subjective Interval history: LNo acute overnight events. Seen and examined at bedside and patient states her satisfaction as she was able to sleep 4 to 5 hours without discomfort last night and can hold down her clear liquid diet without significant nausea or vomiting. Originally plan for IR replacement of percutaneous cholecystostomy to drainage tube but INR was too high. Will touch base with oncology to see if transfer to a tertiary center for development of abdominal mass is indicated given her clinical picture. Creatinine increased from 1.2 to 2.0 overnight, suspect possible obstructive uropathy. Patient states that she is able to urinate with intermittent stream and will continue to monitor and place [place] if needed. Exam Vital Signs Temp Pulse Resp BP Pulse Ox O2 Del Method O2 Flow Rate 96.8 F 96 16 118/67 93 L Room Air 2 01/18/25 08:00 01/18/25 08:00 01/18/25 08:00 01/18/25 08:00 01/18/25 08:00 01/18/25 08:00 01/18/25 08:00 Narrative Exam General: AOx3, no acute distress, able to speak full sentences HEENT: NC/AT, mucous membranes moist, bilateral sclera anicteric Cardiovascular: regular rate and rhythm, S1/S2 present, no murmurs appreciated Pulmonary: clear to auscultation bilaterally, no rales/rhonchi/wheezes Abdominal: large abdomen, diffusely tender to palpation, firm, no rebound/guarding Musculoskeletal: normal ROM, no peripheral edema Skin: warm and dry, intact, no rashes Neuro: CN II-XII intact, no focal deficits Objective Labs 01/18/25 04:55 01/18/25 04:55 Labs: Laboratory Results - last 24 hr 01/18/25 04:55 WBC 15.8 H RBC 2.99 L Hgb 8.5 L Hct 26.5 L MCV 89 MCH 28.4 MCHC 32.1 RDW Std Deviation 49.1 H Plt Count 348 D Neut % (Auto) 74 Lymph % (Auto) 18 [place] % (Auto) 6 Eos % (Auto) 0 Baso % (Auto) 0 Neut # (Auto) 11.7 H Lymph # (Auto) 2.9 [place] # (Auto) 1.0 H Eos # (Auto) 0.1 Baso # (Auto) 0.1 Immature Gran # (Auto) 0.08 H Absolute Nucleated RBC 0.00 Immature Gran % 1 H Nucleated RBC % 0 PT 14.5 H INR 1.4 H APTT 30.5 Sodium 132 L Potassium 3.8 Chloride 97 L Carbon Dioxide 20.5 Anion Gap 15 BUN 16 Creatinine 2.0 H D Estim Creat Clear Calc 49.9 L eGFR 31 L BUN/Creatinine Ratio 8 L Glucose 111 H Calculated Osmolality 266 L Calcium 8.4 Corrected Calcium 8.8 Total Bilirubin 0.7 AST 31 ALT < 7 L Alkaline Phosphatase 106 Total Protein 7.5 Albumin 3.5 Globulin 4.0 H Albumin/Globulin Ratio 0.9 L Quality Measures Quality Measures none Assessment & Plan Assessment Current Active Medications: Generic Name Dose Route Start Last Admin Trade Name Freq PRN Reason Stop Dose Admin Acetaminophen 650 mg 01/17/25 07:32 Acetaminophen 325 Mg Tablet PO 02/15/25 23:08 Q6H PRN Fever >100.3 or pain(1-3) Enoxaparin Sodium 40 mg 01/17/25 09:00 01/17/25 09:17 Enoxaparin Sod Inj 40 Mg/0.4 Ml Syringe SC 01/31/25 08:59 40 mg QDAY MARU Administration Ceftriaxone Sodium/Dextrose 1 gm in 50 mls @ 100 mls/hr 01/16/25 23:18 01/18/25 09:40 Rocephin/D5w 1gm Iv Premix IV 01/23/25 23:17 100 mls/hr QDAY MARU Administration Metronidazole 500 mg in 100 mls @ 200 mls/hr 01/16/25 23:19 01/18/25 05:35 Flagyl 500 Mg Iv IV 01/23/25 23:18 200 mls/hr Q8HR MARU Administration Morphine Sulfate 4 mg 01/17/25 09:02 01/17/25 14:59 Morphine Sulf Inj 10 Mg/Ml Vial IVP 01/22/25 09:59 4 mg Q2HR PRN Administration PAIN SCALE 4-10(Mod-Sev Morphine Sulfate 30 mg 01/17/25 16:17 01/17/25 16:27 Morphine Sulfate Pf 1 Mg/Ml Kit Assembler Vial 30 Ml IV 01/22/25 16:16 30 mg PER ORDER PRN Administration PAIN Protocol Ondansetron HCl 4 mg 01/16/25 23:09 01/18/25 05:34 Ondansetron Inj 2 Mg/Ml Inj 2 Ml IVP 02/15/25 23:08 4 mg Q6H PRN Administration NAUSEA OR VOMITING Protocol Sennosides 1 tab 01/16/25 23:14 Senna Tablet PO 02/15/25 23:13 QDAY PRN constipation Protocol Plan Karlene Carvalho, 44-year-old female with past medical history of leiomyosarcoma s/p supracervical hysterectomy s/p chemotherapy in 2023, 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 intake for three weeks prior to admission. #Cholelithiasis #Biliary dyskinesia #Intractable nausea/vomiting #Decreased p.o. intake Intractable N/V for three weeks with decreased p.o. intake. Gallbladder ultrasound showed cholelithiasis and thickening of gallbladder wall, CT abdomen and pelvis showed cholelithiasis, and HIDA scan showed EF 22%. MRCP also obtained that showed cholelithiasis but no signs of cholecystitis; also showed abrupt truncation of common hepatic duct which may be related to large tumor mass in pelvis that extends into the upper abdomen. T bili, ALP, and LFTs all within normal limits, no fevers, mild leukocytosis. ? General Surgery consulted, appreciate recommendations ? Recommended IR placement of percutaneous nephrostomy tube but unable to due to elevated INR ? Ceftriaxone 1 g IV daily ? Flagyl 500 mg IV every 8 hours ? Zofran as needed ? Urine culture 01/16: Mixed tevin ? Blood cultures 01/16: NGTD #Metastatic leiomyosarcoma #Pelvic mass #Intractable abdominal pain Diagnosed with cancer on 07/[address] Morris oncology in [place]. Last chemo session was in 2023 and patient has not seen an oncologist since August 2024 secondary to insurance issues. Per patient she has undergone total hysterectomy, chemotherapy and radiation in the past. On admission, CT A/P significant for metastatic pulmonary nodules, malignant ascites, and very large septated necrotic mass in pelvis extending into abdomen 25 x 27 x 17 cm. ? Dr. Stafford consulted, appreciate recommendations ? Pain management: CARDIOLOGY MANAGER ? Will follow-up with to see if transfer to tertiary care care center for debulking indicated given clinical picture #Normocytic anemia Possibly secondary to anemia of chronic disease from underlying malignancy versus iron deficiency. Patient denies blood in urine or stool. On admission hemoglobin 9.8, hematocrit 30.3, and MCV 88. ? Monitor with daily hematology panel while hospitalized Hospital management: Disposition: IV antibiotics, possible transfer if recommended by oncology Diet: Clear liquid diet, advance as tolerated DVT prophylaxis: Enoxaparin CODE STATUS: full code ----- Plan discussed with attending physician Dr. Cecil Alvarez MD PGY-1 Internal Medicine
[2025-01-18] MEDS: Morphine Sulfate PF 1 MG/ML PCA VIAL 30 ML 30 MG IV (13:14)
[2025-01-18] MEDS: METOCLOPRAMIDE INJ 5 MG/ML VIAL 2 ML 10 MG IVP (18:08)
[2025-01-18] MEDS: SCOPOLAMINE 1 MG TDSY TOP (21:00)
[2025-01-19] VITALS (17 sets, daily range): BP systolic 95–121; BP diastolic 56–87; PULSE 87–109; RESP 15–21; TEMP 36.1–36.8; O2SAT 92–98
[2025-01-19] MEDS: METOCLOPRAMIDE INJ 5 MG/ML VIAL 2 ML 10 MG IVP ×3 (02:54→19:45)
[2025-01-19] MEDS: metroNIDAZOLE/NS 500 MG IVPB 500 MG/100 ML BAG 200 MG IV ×3 (05:10→21:13)
[2025-01-19 06:26] LABS: Basophils % (Auto) 0 % (0-2.5); Eosinophils # (Auto) 0.1 Thou/mm3 (0.0-0.5); Eosinophils % (Auto) 1 % (0-10); Hematocrit 21.2 % (36.0-46.0); Immature Granulocytes % (Auto) 1 % (0-0); Immature Granulocytes Auto 0.08 Thou/mm3 (0.00-0.00); Lymphocytes # (Auto) 1.5 Thou/mm3 (1.0-4.8); Lymphocytes % (Auto) 12 % (10-50); Mean Corpuscular Hemoglobin 28.7 pg (25.0-35.0); Mean Corpuscular Volume 87 fL (80-100); Monocytes # (Auto) 0.9 Thou/mm3 (0.0-0.8); Monocytes % (Auto) 7 % (0-12); Neutrophils # (Auto) 9.9 Thou/mm3 (1.8-7.7); Neutrophils % (Auto) 80 % (37-80); Nucleated Red Blood Cell % 0 /100 WBC (0); Platelet Count 291 Thou/mm3 (140-440); RDW Standard Deviation 47.3 fL (36.4-46.3); Red Blood Count 2.44 Miln/mm3 (4.00-5.20); White Blood Count 12.4 Thou/mm3 (3.6-11.0)
[2025-01-19 06:49] LABS: Alanine Aminotransferase < 7 U/L (10-49); Albumin, Serum 3.2 gm/dL (3.5-5.0); Albumin/Globulin Ratio 0.9 (1.2-2.2); Alkaline Phosphatase 89 U/L (46-116); Anion Gap 13 (7-16); Aspartate Amino Transferase 27 U/L (0-34); BUN/Creatinine Ratio 13 Ratio (12-20); Bilirubin,Total 0.5 mg/dL (0.3-1.2); Blood Urea Nitrogen 25 mg/dL (9-23); Calcium (Corrected) 8.6 mg/dL (8.5-10.1); Carbon Dioxide 22.4 mMol/L (20.0-31.0); Chloride 96 mMol/L (98-107); Estimated Creatinine Clearance 49.9 mL/min (>60); Globulin 3.6 gm/dL (2.3-3.5); Glucose 104 mg/dL (74-106); Osmolality,Calculated 267 (275-295); Potassium 3.8 mMol/L (3.4-5.1); Sodium 131 mMol/L (136-145); Total Protein 6.8 gm/dL (5.7-8.2); eGFR 31 See Note
[2025-01-19] MEDS: cefTRIAXone/D5w 1gm IV premix 1 GM/50 ML BAG IV (09:01)
[2025-01-19 09:05] LABS: Hematocrit 21.9 % (36.0-46.0)
[2025-01-19 09:06] LABS: INR 1.3 (0.9-1.3); Partial Thromboplastin Time 29.3 Seconds (22.0-36.0)
[2025-01-19 09:08] LABS: Hemoglobin 7.1 g/dL (12.0-16.0)
--- NOTE | 2025-01-19 09:34 | XR_ITS ---
Examination: CT-guided percutaneous cholecystostomy drainage catheter placement CT abdomen without intravenous contrast Date and time of procedure: January 19, 2025 1018 hours INDICATIONS: Acute calculus cholecystitis this week Informed consent provided. A timeout was completed verifying correct patient, procedure, site and positioning. Technique: Axial 3 mm sections were obtained for localization of gallbladder Appropriate area is marked. The patient's site was prepped and draped in sterile fashion Maximal sterile barrier technique utilized, including hand hygiene Local anesthesia was obtained with 1% lidocaine. Low dose protocols were performed. One or more of the following dose reduction techniques were used; automated exposure control, adjustment of the mA and/or KV according to patient size, use of iterative reconstruction technique. Utilizing CT fluoroscopic guidance 5 [place] catheter placed in the gallbladder with aspiration of bile for culture and sensitivity Patient appears in stable condition during this procedure. At completion of the procedure, the patient is in satisfactory condition. Estimated blood loss 0 cc Complete culture and sensitivity report to follow. Impression: Successful CT-guided percutaneous cholecystostomy drainage catheter placement
[2025-01-19] MEDS: fentaNYL CIT INJ 50 mCg/ML AMP 2ML 100 MCG IVP (10:47)
[2025-01-19] MEDS: LIDOCAINE INJ PF 1% 5 ML VIAL INFL (11:23)
--- NOTE | 2025-01-19 11:40 | ESPR_ITS ---
<Statement entered by Irma Jacob MD - 01/24/25 15:45> I reviewed above note and agree with findings and plans. I have also personally examined the patient with medicine team and went over assessment and plan with medical team including internet sales consultant and resident physician. Documentation for date of: 01/19/25 Subjective Subjective Interval history: Overnight, patient was complaining of extreme nausea/vomiting, and could not sleep. Patient appears to be very sleepy and fidgety today. However, patient's pain is somewhat controlled with her morphine JUDO TEACHER. Patient agreed to go ahead with percutaneous IR cholecystostomy drainage to possibly aid in reducing her nausea/vomiting. Will reach out to oncology for further recommendations on dispo plan for tertiary center for possible surgery debulking of tumor/radiation. Otherwise patient's vital signs are stable, tachycardia is improved. Patient's hemoglobin was low at 7, and repeat was 7.1. Will transfuse hemoglobin of less than 7. Creatinine is stable at 2. Patient states that she will try her ensures, and try more solid foods as tolerated. Dietary did not note that patient will need TPN if nutrition requirements are not met. Exam Vital Signs Temp Pulse Resp BP Pulse Ox O2 Del Method O2 Flow Rate 97.6 F 89 17 102/65 96 Nasal Cannula 1 01/19/25 08:00 01/19/25 08:00 01/19/25 08:00 01/19/25 08:00 01/19/25 08:00 01/19/25 08:00 01/19/25 08:00 Narrative Exam General Appearance: Pt in mild distress laying in bed with nasal cannula. Able to speak full sentences, conversational HEENT: NC/AT, no scleral icterus, no conjunctival pallor, MMM Lungs: CTAB, no wheezes or crackles appreciated CVS: RRR, S1/S2 heard, no murmurs or rubs appreciated ABD: Large abdomen, diffusely tender to palpation, firm, bowel sounds appreciated EXT: no deformity/edema/lesions/cyanosis/clubbing, radial pulses 2+ BL, DP pulses 2 + BL SKIN: Skin exam normal without any rashes. Neuro: A&O x 3. No gross neurological deficits. Motor and sensory grossly intact in B/L UL and LL. Psych: Appropriate mood and affect Objective Labs 01/19/25 08:30 01/19/25 05:46 Labs: Laboratory Results - last 24 hr 01/19/25 01/19/25 05:46 08:30 WBC 12.4 H RBC 2.44 L Hgb 7.0 L 7.1 L Hct 21.2 L* 21.9 L* MCV 87 MCH 28.7 MCHC 33.0 RDW Std Deviation 47.3 H Plt Count 291 D Neut % (Auto) 80 Lymph % (Auto) 12 [place] % (Auto) 7 Eos % (Auto) 1 Baso % (Auto) 0 Neut # (Auto) 9.9 H Lymph # (Auto) 1.5 [place] # (Auto) 0.9 H Eos # (Auto) 0.1 Baso # (Auto) 0.0 Immature Gran # (Auto) 0.08 H Absolute Nucleated RBC 0.00 Immature Gran % 1 H Nucleated RBC % 0 PT 14.0 H INR 1.3 APTT 29.3 Sodium 131 L Potassium 3.8 Chloride 96 L Carbon Dioxide 22.4 Anion Gap 13 BUN 25 H Creatinine 2.0 H Estim Creat Clear Calc 49.9 L eGFR 31 L BUN/Creatinine Ratio 13 Glucose 104 Calculated Osmolality 267 L Calcium 8.0 L Corrected Calcium 8.6 Total Bilirubin 0.5 AST 27 ALT < 7 L Alkaline Phosphatase 89 Total Protein 6.8 Albumin 3.2 L Globulin 3.6 H Albumin/Globulin Ratio 0.9 L Quality Measures Quality Measures none Assessment & Plan Assessment Current Active Medications: Generic Name Dose Route Start Last Admin Trade Name Freq PRN Reason Stop Dose Admin Acetaminophen 650 mg 01/17/25 07:32 Acetaminophen 325 Mg Tablet PO 02/15/25 23:08 Q6H PRN Fever >100.3 or pain(1-3) Enoxaparin Sodium 40 mg 01/17/25 09:00 01/19/25 09:07 Enoxaparin Sod Inj 40 Mg/0.4 Ml Syringe SC 01/31/25 08:59 Not Given QDAY MARU Ceftriaxone Sodium/Dextrose 1 gm in 50 mls @ 100 mls/hr 01/16/25 23:18 01/19/25 09:01 Rocephin/D5w 1gm Iv Premix IV 01/23/25 23:17 100 mls/hr QDAY MARU Administration Metronidazole 500 mg in 100 mls @ 200 mls/hr 01/16/25 23:19 01/19/25 05:10 Flagyl 500 Mg Iv IV 01/23/25 23:18 200 mls/hr Q8HR MARU Administration Metoclopramide HCl 10 mg 01/18/25 17:50 01/19/25 08:59 Metoclopramide Inj 5 Mg/Ml Vial 2 Ml IVP 02/17/25 17:49 10 mg Q6HR PRN Administration NAUSEA OR VOMITING Protocol Morphine Sulfate 4 mg 01/17/25 09:02 01/17/25 14:59 Morphine Sulf Inj 10 Mg/Ml Vial IVP 01/22/25 09:59 4 mg Q2HR PRN Administration PAIN SCALE 4-10(Mod-Sev Morphine Sulfate 30 mg 01/17/25 16:17 01/18/25 13:14 Morphine Sulfate Pf 1 Mg/Ml Janitorial Supervisor Vial 30 Ml IV 01/22/25 16:16 30 mg PER ORDER PRN Administration PAIN Protocol Scopolamine 1 mg 01/18/25 22:00 01/18/25 21:00 Scopolamine 1 Mg Tdsy TOP 02/17/25 21:59 1 mg Q3D MARU Administration Sennosides 1 tab 01/16/25 23:14 Senna Tablet PO 02/15/25 23:13 QDAY PRN constipation Protocol Plan Karlene Carvalho, 44-year-old female with past medical history of leiomyosarcoma s/p supracervical hysterectomy s/p chemotherapy in 2023, 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 intake for three weeks prior to admission. #Cholelithiasis #Biliary dyskinesia #Intractable nausea/vomiting #Decreased p.o. intake Intractable N/V for three weeks with decreased p.o. intake. Gallbladder ultrasound showed cholelithiasis and thickening of gallbladder wall, CT abdomen and pelvis showed cholelithiasis, and HIDA scan showed EF 22%. MRCP also obtained that showed cholelithiasis but no signs of cholecystitis; also showed abrupt truncation of common hepatic duct which may be related to large tumor mass in pelvis that extends into the upper abdomen. T bili, ALP, and LFTs all within normal limits, no fevers, mild leukocytosis. ? General Surgery consulted, appreciate recommendations ? IR placement of percutaneous nephrostomy tube successfully placed today by IR ? Biliary fluid analysis sent, follow-up ? Ceftriaxone 1 g IV daily ? Flagyl 500 mg IV every 8 hours ? Zofran as needed ? Urine culture 01/16: Mixed tevin ? Blood cultures 01/16: NGTD #Metastatic leiomyosarcoma #Pelvic mass #Intractable abdominal pain Diagnosed with cancer on 07/[address] Morris oncology in [place]. Last chemo session was in 2023 and patient has not seen an oncologist since August 2024 secondary to insurance issues. Per patient she has undergone total hysterectomy, chemotherapy and radiation in the past. On admission, CT A/P significant for metastatic pulmonary nodules, malignant ascites, and very large septated necrotic mass in pelvis extending into abdomen 25 x 27 x 17 cm. ? Dr. Stafford consulted, appreciate recommendations ? Pain management: JUDO TEACHER ? Will follow-up with to see if transfer to tertiary care care center for debulking indicated given clinical picture #Normocytic anemia Possibly secondary to anemia of chronic disease from underlying malignancy versus iron deficiency. Patient denies blood in urine or stool. On admission hemoglobin 9.8, hematocrit 30.3, and MCV 88. ? Monitor with daily hematology panel while hospitalized Hospital management: Disposition: IV antibiotics, possible transfer if recommended by oncology Diet: Clear liquid diet, advance as tolerated DVT prophylaxis: Enoxaparin CODE STATUS: full code Patient's plan and care discussed with my attending, Dr. Cecil Cosme MD PGY-2
--- NOTE | 2025-01-19 15:07 | PC.SS ---
Rounding: PEnding Dr. Stafford consult/reccs, no DC possibly till Wednesday. DC plan remains home.
--- NOTE | 2025-01-19 15:39 | ESPR_ITS ---
Documentation for date of: 01/19/25 Subjective Subjective Interval history: Had successful CT-guided percutaneous cholecystostomy drainage catheter placement this a.m. Pain generally better with DIRECTOR OF OPERATIONS SUPPORT pump has not had some nausea Exam Vital Signs Temp Pulse Resp BP Pulse Ox O2 Del Method O2 Flow Rate 97.6 F 102 H 18 97/62 96 Room Air 2 01/19/25 08:00 01/19/25 11:33 01/19/25 11:33 01/19/25 11:33 01/19/25 11:33 01/19/25 11:33 01/19/25 11:30 Objective Labs 01/19/25 08:30 01/19/25 05:46 Labs: Laboratory Results - last 24 hr 01/19/25 01/19/25 05:46 08:30 WBC 12.4 H RBC 2.44 L Hgb 7.0 L 7.1 L Hct 21.2 L* 21.9 L* MCV 87 MCH 28.7 MCHC 33.0 RDW Std Deviation 47.3 H Plt Count 291 D Neut % (Auto) 80 Lymph % (Auto) 12 [place] % (Auto) 7 Eos % (Auto) 1 Baso % (Auto) 0 Neut # (Auto) 9.9 H Lymph # (Auto) 1.5 [place] # (Auto) 0.9 H Eos # (Auto) 0.1 Baso # (Auto) 0.0 Immature Gran # (Auto) 0.08 H Absolute Nucleated RBC 0.00 Immature Gran % 1 H Nucleated RBC % 0 PT 14.0 H INR 1.3 APTT 29.3 Sodium 131 L Potassium 3.8 Chloride 96 L Carbon Dioxide 22.4 Anion Gap 13 BUN 25 H Creatinine 2.0 H Estim Creat Clear Calc 49.9 L eGFR 31 L BUN/Creatinine Ratio 13 Glucose 104 Calculated Osmolality 267 L Calcium 8.0 L Corrected Calcium 8.6 Total Bilirubin 0.5 AST 27 ALT < 7 L Alkaline Phosphatase 89 Total Protein 6.8 Albumin 3.2 L Globulin 3.6 H Albumin/Globulin Ratio 0.9 L Assessment & Plan A&P Narrative 1. History of supracervical JORDAN/BSO 05/27/2023 leiomyosarcoma. 2. Received adjuvant chemo between September 2023 through July 2024 at [facility] 3. Admitted with pain nausea vomiting. Imaging studies show widespread mets involving lungs abdomen with a large pelvic mass 4. Successful placement of percutaneous cholecystostomy drainage catheter today. Still with significant symptoms in terms of pain and nausea. 4. Aware of the guarded prognosis. Would like to still be referred to tertiary [facility] HANDLE ASSEMBLER Onc facility who may perform palliative debulking surgery. 5. Spoke with about making this attempt. Time Spent With Patient Time: Total time spent is greater than 50% in coordination of care (as documented) at patient's floor/unit and/or counseling patient:
[2025-01-19] MEDS: Morphine Sulfate PF 1 MG/ML PCA VIAL 30 ML 30 MG IV (18:13)
[2025-01-20] VITALS (16 sets, daily range): BP systolic 107–118; BP diastolic 66–74; PULSE 61–101; RESP 12–23; TEMP 36–36.9; O2SAT 92–97
[2025-01-20] MEDS: METOCLOPRAMIDE INJ 5 MG/ML VIAL 2 ML 10 MG IVP ×3 (03:40→20:36)
[2025-01-20] MEDS: metroNIDAZOLE/NS 500 MG IVPB 500 MG/100 ML BAG 200 MG IV ×3 (05:20→21:18)
[2025-01-20] MEDS: cefTRIAXone/D5w 1gm IV premix 1 GM/50 ML BAG IV (08:59)
[2025-01-20] MEDS: ENOXAPARIN SOD INJ 40 MG/0.4 ML SYRINGE SC (08:59)
[2025-01-20 09:32] LABS: Basophils % (Auto) 0 % (0-2.5); Eosinophils # (Auto) 0.1 Thou/mm3 (0.0-0.5); Eosinophils % (Auto) 1 % (0-10); Hematocrit 21.7 % (36.0-46.0); Immature Granulocytes % (Auto) 1 % (0-0); Immature Granulocytes Auto 0.11 Thou/mm3 (0.00-0.00); Lymphocytes # (Auto) 1.1 Thou/mm3 (1.0-4.8); Lymphocytes % (Auto) 10 % (10-50); Mean Corpuscular HGB Conc 31.8 g/dl (31.0-37.0); Mean Corpuscular Hemoglobin 28.5 pg (25.0-35.0); Mean Corpuscular Volume 90 fL (80-100); Monocytes # (Auto) 0.7 Thou/mm3 (0.0-0.8); Monocytes % (Auto) 6 % (0-12); Neutrophils # (Auto) 8.8 Thou/mm3 (1.8-7.7); Neutrophils % (Auto) 82 % (37-80); Nucleated Red Blood Cell # 0.02 Thou/mm3 (0.00-0.00); Nucleated Red Blood Cell % 0 /100 WBC (0); Platelet Count 276 Thou/mm3 (140-440); RDW Standard Deviation 48.6 fL (36.4-46.3); Red Blood Count 2.42 Miln/mm3 (4.00-5.20); White Blood Count 10.8 Thou/mm3 (3.6-11.0)
[2025-01-20 09:51] LABS: Alanine Aminotransferase < 7 U/L (10-49); Albumin, Serum 3.2 gm/dL (3.5-5.0); Albumin/Globulin Ratio 0.9 (1.2-2.2); Alkaline Phosphatase 86 U/L (46-116); Anion Gap 11 (7-16); Aspartate Amino Transferase 29 U/L (0-34); BUN/Creatinine Ratio 15 Ratio (12-20); Bilirubin,Total 0.5 mg/dL (0.3-1.2); Blood Urea Nitrogen 26 mg/dL (9-23); Calcium (Corrected) 8.6 mg/dL (8.5-10.1); Carbon Dioxide 23.3 mMol/L (20.0-31.0); Chloride 98 mMol/L (98-107); Creatinine (Component) 1.7 mg/dL (0.6-1.3); Estimated Creatinine Clearance 58.8 mL/min (>60); Globulin 3.6 gm/dL (2.3-3.5); Glucose 109 mg/dL (74-106); Osmolality,Calculated 270 (275-295); Potassium 3.6 mMol/L (3.4-5.1); Sodium 132 mMol/L (136-145); Total Protein 6.8 gm/dL (5.7-8.2); eGFR 38 See Note
[2025-01-20 10:14] LABS: Hemoglobin 6.9 g/dL (12.0-16.0)
--- NOTE | 2025-01-20 14:31 | ESPR_ITS ---
<Statement entered by Irma Jacob MD - 01/24/25 15:46> I reviewed above note and agree with findings and plans. I have also personally examined the patient with medicine team and went over assessment and plan with medical team including regulatory internship and resident physician. Documentation for date of: 01/20/25 Subjective Subjective Interval history: Overnight, no acute events reported. Patient states that status post biliary drain placement, patient's nausea has improved. Patient would like to try more solid foods, and did encourage family to bring foods that patient would like to try. Will also reach out to transfer center on Wednesday for oncology/gynecology referral for surgery debulking for her abdominal pain. Patient also will need to transition from morphine TRAP SETTER pump to long-acting morphine, and will try transitioning tomorrow. All questions asked and answered. Patient's renal function is also improving as patient is eating. In addition, patient's hemoglobin today was 6.9, and order type and screen and transfuse 1 unit of packed red blood cells. Exam Vital Signs Temp Pulse Resp BP Pulse Ox O2 Del Method O2 Flow Rate 98.4 F 97 17 107/72 97 Nasal Cannula 2 01/20/25 11:34 01/20/25 11:34 01/20/25 11:34 01/20/25 11:34 01/20/25 11:34 01/20/25 11:34 01/20/25 10:34 Narrative Exam General Appearance: Pt in mild distress laying in bed with nasal cannula, improving. Able to speak full sentences, conversational HEENT: NC/AT, no scleral icterus, no conjunctival pallor, MMM Lungs: CTAB, no wheezes or crackles appreciated CVS: RRR, S1/S2 heard, no murmurs or rubs appreciated ABD: Large abdomen, diffusely tender to palpation, firm, bowel sounds appreciated, biliary drain placed in right upper quadrant, no drainage seen today EXT: no deformity/edema/lesions/cyanosis/clubbing, radial pulses 2+ BL, DP pulses 2 + BL SKIN: Skin exam normal without any rashes. Neuro: A&O x 3. No gross neurological deficits. Motor and sensory grossly intact in B/L UL and LL. Psych: Appropriate mood and affect Objective Labs 01/20/25 08:46 01/20/25 08:46 Labs: Laboratory Results - last 24 hr 01/20/25 01/20/25 08:46 11:04 WBC 10.8 RBC 2.42 L Hgb 6.9 L* Hct 21.7 L* MCV 90 MCH 28.5 MCHC 31.8 RDW Std Deviation 48.6 H Plt Count 276 Neut % (Auto) 82 H Lymph % (Auto) 10 [place] % (Auto) 6 Eos % (Auto) 1 Baso % (Auto) 0 Neut # (Auto) 8.8 H Lymph # (Auto) 1.1 [place] # (Auto) 0.7 Eos # (Auto) 0.1 Baso # (Auto) 0.0 Immature Gran # (Auto) 0.11 H Absolute Nucleated RBC 0.02 H Immature Gran % 1 H Nucleated RBC % 0 Sodium 132 L Potassium 3.6 Chloride 98 Carbon Dioxide 23.3 Anion Gap 11 BUN 26 H Creatinine 1.7 H Estim Creat Clear Calc 58.8 L eGFR 38 L BUN/Creatinine Ratio 15 Glucose 109 H Calculated Osmolality 270 L Calcium 8.0 L Corrected Calcium 8.6 Total Bilirubin 0.5 AST 29 ALT < 7 L Alkaline Phosphatase 86 Total Protein 6.8 Albumin 3.2 L Globulin 3.6 H Albumin/Globulin Ratio 0.9 L Blood Type O Positive Antibody Screen NEGATIVE Crossmatch See Detail Blood Bank Wristband ID Yes Quality Measures Quality Measures none Assessment & Plan Assessment Current Active Medications: Generic Name Dose Route Start Last Admin Trade Name Freq PRN Reason Stop Dose Admin Acetaminophen 650 mg 01/17/25 07:32 Acetaminophen 325 Mg Tablet PO 02/15/25 23:08 Q6H PRN Fever >100.3 or pain(1-3) Enoxaparin Sodium 40 mg 01/17/25 09:00 01/20/25 08:59 Enoxaparin Sod Inj 40 Mg/0.4 Ml Syringe SC 01/31/25 08:59 40 mg QDAY MARU Administration Ceftriaxone Sodium/Dextrose 1 gm in 50 mls @ 100 mls/hr 01/16/25 23:18 01/20/25 08:59 Rocephin/D5w 1gm Iv Premix IV 01/23/25 23:17 100 mls/hr QDAY MARU Administration Metronidazole 500 mg in 100 mls @ 200 mls/hr 01/16/25 23:19 01/20/25 13:03 Flagyl 500 Mg Iv IV 01/23/25 23:18 200 mls/hr Q8HR MARU Administration Metoclopramide HCl 10 mg 01/18/25 17:50 01/20/25 03:40 Metoclopramide Inj 5 Mg/Ml Vial 2 Ml IVP 02/17/25 17:49 10 mg Q6HR PRN Administration NAUSEA OR VOMITING Protocol Morphine Sulfate 4 mg 01/17/25 09:02 01/17/25 14:59 Morphine Sulf Inj 10 Mg/Ml Vial IVP 01/22/25 09:59 4 mg Q2HR PRN Administration PAIN SCALE 4-10(Mod-Sev Morphine Sulfate 30 mg 01/17/25 16:17 01/19/25 18:13 Morphine Sulfate Pf 1 Mg/Ml Mechanical Technologist Vial 30 Ml IV 01/22/25 16:16 30 mg PER ORDER PRN Administration PAIN Protocol Scopolamine 1 mg 01/18/25 22:00 01/18/25 21:00 Scopolamine 1 Mg Tdsy TOP 02/17/25 21:59 1 mg Q3D MARU Administration Sennosides 1 tab 01/16/25 23:14 Senna Tablet PO 02/15/25 23:13 QDAY PRN constipation Protocol Plan Karlene Carvalho, 44-year-old female with past medical history of leiomyosarcoma s/p supracervical hysterectomy s/p chemotherapy in 2023, 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 intake for three weeks prior to admission. #Cholelithiasis #Biliary dyskinesia #Intractable nausea/vomiting #Decreased p.o. intake Intractable N/V for three weeks with decreased p.o. intake. Gallbladder ultrasound showed cholelithiasis and thickening of gallbladder wall, CT abdomen and pelvis showed cholelithiasis, and HIDA scan showed EF 22%. MRCP also obtained that showed cholelithiasis but no signs of cholecystitis; also showed abrupt truncation of common hepatic duct which may be related to large tumor mass in pelvis that extends into the upper abdomen. T bili, ALP, and LFTs all within normal limits, no fevers, mild leukocytosis. IR placement of percutaneous nephrostomy tube placed yesterday, 01/19/2025, had 40 cc drainage yesterday, and so far has had none today ? General Surgery consulted, appreciate recommendations ? Biliary fluid analysis sent, follow-up ? Ceftriaxone 1 g IV daily ? Flagyl 500 mg IV every 8 hours ? Zofran as needed ? Urine culture 01/16: Mixed tevin ? Blood cultures 01/16: NGTD #Metastatic leiomyosarcoma #Pelvic mass #Intractable abdominal pain Diagnosed with cancer on 07/[address] Morris oncology in [place]. Last chemo session was in 2023 and patient has not seen an oncologist since August 2024 secondary to insurance issues. Per patient she has undergone total hysterectomy, chemotherapy and radiation in the past. On admission, CT A/P significant for metastatic pulmonary nodules, malignant ascites, and very large septated necrotic mass in pelvis extending into abdomen 25 x 27 x 17 cm. ? Dr. Stafford consulted, appreciate recommendations ? Pain management: TRAP SETTER, will transition to long-acting morphine tomorrow ? Will follow-up with to see if transfer to tertiary care care center for debulking indicated given clinical picture, on Wednesday ? Patient's nausea is well improved with the IR drain, and will transition to more solid foods today #Normocytic anemia Possibly secondary to anemia of chronic disease from underlying malignancy versus iron deficiency. Patient denies blood in urine or stool. On admission hemoglobin 9.8, hematocrit 30.3, and MCV 88. ? Monitor with daily hematology panel while hospitalized Hospital management: Disposition: IV antibiotics, possible transfer if recommended by oncology Diet: Dysphagia 2 diet DVT prophylaxis: Enoxaparin CODE STATUS: full code Patient's plan and care discussed with my attending, Dr. Cecil Cosme MD PGY-2
[2025-01-20] MEDS: Morphine Sulfate PF 1 MG/ML PCA VIAL 30 ML 30 MG IV (19:42)
[2025-01-20] MEDS: PANTOPRAZOLE INJ 40 MG VIAL IVP (21:08)
[2025-01-21] VITALS (10 sets, daily range): BP systolic 97–116; BP diastolic 57–69; PULSE 87–101; RESP 13–22; TEMP 35.9–36.9; O2SAT 92–96
[2025-01-21] MEDS: METOCLOPRAMIDE INJ 5 MG/ML VIAL 2 ML 10 MG IVP ×3 (03:59→17:50)
[2025-01-21] MEDS: metroNIDAZOLE/NS 500 MG IVPB 500 MG/100 ML BAG 200 MG IV ×3 (05:40→21:02)
[2025-01-21 05:58] LABS: Basophils % (Auto) 0 % (0-2.5); Eosinophils # (Auto) 0.1 Thou/mm3 (0.0-0.5); Eosinophils % (Auto) 1 % (0-10); Hematocrit 22.9 % (36.0-46.0); Immature Granulocytes % (Auto) 1 % (0-0); Immature Granulocytes Auto 0.15 Thou/mm3 (0.00-0.00); Lymphocytes # (Auto) 1.7 Thou/mm3 (1.0-4.8); Lymphocytes % (Auto) 14 % (10-50); Mean Corpuscular HGB Conc 33.6 g/dl (31.0-37.0); Mean Corpuscular Hemoglobin 28.9 pg (25.0-35.0); Mean Corpuscular Volume 86 fL (80-100); Monocytes # (Auto) 0.8 Thou/mm3 (0.0-0.8); Monocytes % (Auto) 6 % (0-12); Neutrophils # (Auto) 9.6 Thou/mm3 (1.8-7.7); Neutrophils % (Auto) 78 % (37-80); Nucleated Red Blood Cell # 0.05 Thou/mm3 (0.00-0.00); Nucleated Red Blood Cell % 0 /100 WBC (0); Platelet Count 284 Thou/mm3 (140-440); RDW Standard Deviation 45.6 fL (36.4-46.3); Red Blood Count 2.66 Miln/mm3 (4.00-5.20); White Blood Count 12.4 Thou/mm3 (3.6-11.0)
[2025-01-21 06:04] LABS: Hemoglobin 7.7 g/dL (12.0-16.0)
[2025-01-21 06:59] LABS: Alanine Aminotransferase < 7 U/L (10-49); Albumin, Serum 3.2 gm/dL (3.5-5.0); Albumin/Globulin Ratio 0.9 (1.2-2.2); Alkaline Phosphatase 88 U/L (46-116); Anion Gap 11 (7-16); Aspartate Amino Transferase 27 U/L (0-34); BUN/Creatinine Ratio 16 Ratio (12-20); Bilirubin,Total 0.5 mg/dL (0.3-1.2); Blood Urea Nitrogen 25 mg/dL (9-23); Calcium (Corrected) 8.6 mg/dL (8.5-10.1); Carbon Dioxide 22.8 mMol/L (20.0-31.0); Chloride 97 mMol/L (98-107); Creatinine (Component) 1.6 mg/dL (0.6-1.3); Estimated Creatinine Clearance 62.4 mL/min (>60); Globulin 3.5 gm/dL (2.3-3.5); Glucose 103 mg/dL (74-106); Osmolality,Calculated 267 (275-295); Potassium 3.7 mMol/L (3.4-5.1); Sodium 131 mMol/L (136-145); Total Protein 6.7 gm/dL (5.7-8.2); eGFR 41 See Note
[2025-01-21 09:10] LABS: Phosphorous 2.9 mg/dL (2.4-5.1)
[2025-01-21] MEDS: PANTOPRAZOLE INJ 40 MG VIAL IVP (10:37)
--- NOTE | 2025-01-21 10:37 | ESPR_ITS ---
<Statement entered by Irma Jacob MD - 01/26/25 12:35> I reviewed above note and agree with findings and plans. I have also personally examined the patient with medicine team and went over assessment and plan with medical team including general internist and resident physician. Documentation for date of: 01/21/25 Subjective Subjective Interval history: No acute overnight events. Seen and examined at bedside and patient continues to endorse nausea and vomiting and abdominal pain with PATCH DRILLER. Given lack of improvement in symptoms status post percutaneous cholecystostomy tube, efforts for transfer were initiated today. Spoke to transfer nurse at [facility] who states that they do not have surgical oncology but will reach out to gynecological oncology for further recommendations. Otherwise, vital signs stable. WBC increased from 10.8 to 12.4, hemoglobin improved from 6.9 to 7.7 status post transfusion 1 unit PRBC, sodium 131, renal function improving. Urine culture negative, blood culture NGTD, bile fluid culture pending. Will plan to transition patient from PATCH DRILLER to morphine ER tomorrow. Exam Vital Signs Temp Pulse Resp BP Pulse Ox O2 Del Method O2 Flow Rate 98.5 F 87 20 110/62 95 Nasal Cannula 2 01/21/25 07:29 01/21/25 10:36 01/21/25 10:36 01/21/25 07:29 01/21/25 10:36 01/21/25 07:29 01/21/25 10:36 Narrative Exam General appearance: in mild distress laying in bed with nasal cannula, improving, able to speak full sentences, conversational HEENT: NC/AT, no scleral icterus, no conjunctival pallor, MMM Lungs: CTAB, no wheezes or crackles appreciated CVS: RRR, S1/S2 heard, no murmurs or rubs appreciated ABD: Large abdomen, diffusely tender to palpation, firm, bowel sounds appreciated, biliary drain placed in right upper quadrant EXT: no deformity/edema/lesions/cyanosis/clubbing, radial pulses 2+ BL, DP pulses 2 + BL SKIN: Skin exam normal without any rashes. Neuro: A&O x 3. No gross neurological deficits. Motor and sensory grossly intact in B/L UL and LL. Psych: Appropriate mood and affect Objective Labs 01/21/25 04:35 01/21/25 04:35 Labs: Laboratory Results - last 24 hr 01/20/25 01/21/25 11:04 04:35 WBC 12.4 H RBC 2.66 L Hgb 7.7 L Hct 22.9 L MCV 86 MCH 28.9 MCHC 33.6 RDW Std Deviation 45.6 Plt Count 284 Neut % (Auto) 78 Lymph % (Auto) 14 [place] % (Auto) 6 Eos % (Auto) 1 Baso % (Auto) 0 Neut # (Auto) 9.6 H Lymph # (Auto) 1.7 [place] # (Auto) 0.8 Eos # (Auto) 0.1 Baso # (Auto) 0.0 Immature Gran # (Auto) 0.15 H Absolute Nucleated RBC 0.05 H Immature Gran % 1 H Nucleated RBC % 0 Sodium 131 L Potassium 3.7 Chloride 97 L Carbon Dioxide 22.8 Anion Gap 11 BUN 25 H Creatinine 1.6 H Estim Creat Clear Calc 62.4 eGFR 41 L BUN/Creatinine Ratio 16 Glucose 103 Calculated Osmolality 267 L Calcium 8.0 L Corrected Calcium 8.6 Phosphorus 2.9 Magnesium 2.0 Total Bilirubin 0.5 AST 27 ALT < 7 L Alkaline Phosphatase 88 Total Protein 6.7 Albumin 3.2 L Globulin 3.5 Albumin/Globulin Ratio 0.9 L Blood Type O Positive Antibody Screen NEGATIVE Crossmatch See Detail Blood Bank Wristband ID Yes Quality Measures Quality Measures none Assessment & Plan Assessment Current Active Medications: Generic Name Dose Route Start Last Admin Trade Name Freq PRN Reason Stop Dose Admin Acetaminophen 650 mg 01/17/25 07:32 Acetaminophen 325 Mg Tablet PO 02/15/25 23:08 Q6H PRN Fever >100.3 or pain(1-3) Enoxaparin Sodium 40 mg 01/17/25 09:00 01/20/25 08:59 Enoxaparin Sod Inj 40 Mg/0.4 Ml Syringe SC 01/31/25 08:59 40 mg QDAY MARU Administration Ceftriaxone Sodium/Dextrose 1 gm in 50 mls @ 100 mls/hr 01/16/25 23:18 01/20/25 08:59 Rocephin/D5w 1gm Iv Premix IV 01/23/25 23:17 100 mls/hr QDAY MARU Administration Metronidazole 500 mg in 100 mls @ 200 mls/hr 01/16/25 23:19 01/21/25 05:40 Flagyl 500 Mg Iv IV 01/23/25 23:18 200 mls/hr Q8HR MARU Administration Metoclopramide HCl 10 mg 01/18/25 17:50 01/21/25 03:59 Metoclopramide Inj 5 Mg/Ml Vial 2 Ml IVP 02/17/25 17:49 10 mg Q6HR PRN Administration NAUSEA OR VOMITING Protocol Morphine Sulfate 4 mg 01/17/25 09:02 01/17/25 14:59 Morphine Sulf Inj 10 Mg/Ml Vial IVP 01/22/25 09:59 4 mg Q2HR PRN Administration PAIN SCALE 4-10(Mod-Sev Morphine Sulfate 30 mg 01/17/25 16:17 01/20/25 19:42 Morphine Sulfate Pf 1 Mg/Ml Soda Clerk Vial 30 Ml IV 01/22/25 16:16 30 mg PER ORDER PRN Administration PAIN Protocol Pantoprazole Sodium 40 mg 01/20/25 20:55 01/20/25 21:08 Pantoprazole Inj 40 Mg Vial IVP 02/19/25 20:54 40 mg QDAY MARU Administration Scopolamine 1 mg 01/18/25 22:00 01/18/25 21:00 Scopolamine 1 Mg Tdsy TOP 02/17/25 21:59 1 mg Q3D MARU Administration Sennosides 1 tab 01/16/25 23:14 Senna Tablet PO 02/15/25 23:13 QDAY PRN constipation Protocol Plan Karlene Carvalho, 44-year-old female with past medical history of leiomyosarcoma s/p supracervical hysterectomy s/p chemotherapy in 2023, 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 intake for three weeks prior to admission. #Cholelithiasis #Biliary dyskinesia #Intractable nausea/vomiting #Decreased p.o. intake Intractable N/V for three weeks with decreased p.o. intake. Gallbladder ultrasound showed cholelithiasis and thickening of gallbladder wall, CT abdomen and pelvis showed cholelithiasis, and HIDA scan showed EF 22%. MRCP also obtained that showed cholelithiasis but no signs of cholecystitis; also showed abrupt truncation of common hepatic duct which may be related to large tumor mass in pelvis that extends into the upper abdomen. T bili, ALP, and LFTs all within normal limits, no fevers, mild leukocytosis. IR placement of percutaneous cholecystostomy tube placed 01/19/2025 ? General Surgery consulted, appreciate recommendations ? Ceftriaxone 1 g IV daily, Flagyl 500 mg IV every 8 hours (01/16-) ? Zofran as needed ? Urine culture 01/16: Mixed tevin ? Blood cultures 01/16: NGTD ? Bile fluid culture pending #Metastatic leiomyosarcoma #Pelvic mass #Intractable abdominal pain Diagnosed with cancer on 07/[address] Morris oncology in [place]. Last chemo session was in 2023 and patient has not seen an oncologist since August 2024 secondary to insurance issues. Per patient she has undergone total hysterectomy, chemotherapy and radiation in the past. On admission, CT A/P significant for metastatic pulmonary nodules, malignant ascites, and very large septated necrotic mass in pelvis extending into abdomen 25 x 27 x 17 cm. ? Dr. Stafford consulted, appreciate recommendations ? Pain management: PATCH DRILLER, will transition to long-acting morphine tomorrow ? Transfer process for surgical debulking ongoing #Normocytic anemia Possibly secondary to anemia of chronic disease from underlying malignancy versus iron deficiency. Patient denies blood in urine or stool. On admission hemoglobin 9.8, hematocrit 30.3, and MCV 88. ? Monitor with daily hematology panel while hospitalized Hospital management: Disposition: IV antibiotics, transfer process ongoing for debulking Diet: Dysphagia 2 diet DVT prophylaxis: Enoxaparin CODE STATUS: full code ----- Plan discussed with attending physician Dr. Cecil Alvarez MD PGY-1 Internal Medicine
[2025-01-21] MEDS: cefTRIAXone/D5w 1gm IV premix 1 GM/50 ML BAG IV (10:38)
[2025-01-21] MEDS: ENOXAPARIN SOD INJ 40 MG/0.4 ML SYRINGE SC (10:38)
--- NOTE | 2025-01-21 11:01 | PC.ADMIT ---
1101: clinical documents with imaging sent to [facility], [facility], and [facility]. awaiting for responses. 1038: received order to transfer patient for [facility] for surgery oncology.
--- NOTE | 2025-01-21 11:06 | PC.CC ---
Addendum entered by Klaus Smith RN 01/21/25 14:32: 1432: TBA efaxed to [facility]. Addendum entered by Klaus Smith RN 01/21/25 14:29: 1428: called [facility] for auth request, received recording stating they are open Wednesday through Wednesday. Will call back on tomorrow on Wednesday. Addendum entered by Klaus Smith RN 01/21/25 13:40: 1231: Received call from Lexy w/ [facility]. Pt has been accepted by Dr. Renee Larry, however waiting on bed capacity and insurance auth. [facility] Tax ID [id number], NPI [id number]. Dr. Larry . Lexy stated the MD is requesting a CT of chest prior to transfer. Called and spoke to Dr. Alvarez, informed him of the CT of chest order, he stated he will enter the order. Addendum entered by Klaus Smith RN 01/21/25 11:51: 1150: clinicals w/ imaging sent to [facility] and [facility]. Addendum entered by Klaus Smith RN 01/21/25 11:45: 1143: called and spoke to Ramon at [facility], she stated they do not have surgical oncology or gyne/oncology services. Addendum entered by Klaus Smith RN 01/21/25 11:36: 1112: spoke to Lexy at [facility], she requested to speak to Dr. Alvarez, conference call initiated. Case discussed. per Lexy, [facility] does not have surgical oncology but rec: gyne/oncology or general oncology. She stated they are at capacity however will still reach out these providers and call us back. Original Note: 1104: Bere with [facility], stated they do not provide surgical oncology services. 1101: clinical documents w/ imaging sent to [facility], and [facility] 1038: received order for transfer for surgical oncology for palliative debulking surgery.
--- NOTE | 2025-01-21 13:19 | XR_ITS ---
Examination: CT chest, without intravenous contrast. Sagittal and coronal 2-D reconstructions. Exam date and time: January 21, 2025 at 1351 hours Comparison January 08, 2025 INDICATIONS: Large abdominal mass or pulmonary nodular metastatic disease CTDI:vol (mGy) 20.0 DLP: (mGycm) 648 Technique: Multiple 3.0 mm axial sections of the chest to been obtained. Bone and lung density settings are obtained. Sagittal and coronal 2-D reconstructions have been obtained. Low dose protocols were performed. One or more of the following dose reduction techniques were used; automated exposure control, adjustment of the mA and/or KV according to patient size, use of iterative reconstruction technique. Findings: No dilatation No paratracheal tracheobronchial or bronchopulmonary adenopathy Pneumonia right base with moderate right pleural effusion Again noted pulmonary nodular metastatic disease, the largest nodule 13 mm in the right upper lobe Mild ascites No focal liver or splenic lesion No hydronephrosis Partial visualization of the large pelvic abdominal mass Moderate osteopenia IMPRESSION: Pulmonary nodular metastatic disease Pneumonia right base with moderate right pleural effusion
[2025-01-21] MEDS: SENNA TABLET 1 TAB PO (14:16)
[2025-01-21] MEDS: SCOPOLAMINE 1 MG TDSY TOP (21:01)
[2025-01-21] MEDS: Morphine Sulfate PF 1 MG/ML PCA VIAL 30 ML 30 MG IV (23:10)
[2025-01-22] VITALS (10 sets, daily range): BP systolic 104–140; BP diastolic 63–87; PULSE 87–101; RESP 12–21; TEMP 36.1–36.8; O2SAT 90–99; BMI 40.1
[2025-01-22] MEDS: METOCLOPRAMIDE INJ 5 MG/ML VIAL 2 ML 10 MG IVP ×3 (01:00→19:51)
[2025-01-22] MEDS: metroNIDAZOLE/NS 500 MG IVPB 500 MG/100 ML BAG 200 MG IV ×3 (05:17→22:11)
[2025-01-22 05:32] LABS: Basophils % (Auto) 0 % (0-2.5); Eosinophils # (Auto) 0.1 Thou/mm3 (0.0-0.5); Eosinophils % (Auto) 1 % (0-10); Hematocrit 22.8 % (36.0-46.0); Immature Granulocytes % (Auto) 1 % (0-0); Immature Granulocytes Auto 0.15 Thou/mm3 (0.00-0.00); Lymphocytes # (Auto) 1.4 Thou/mm3 (1.0-4.8); Lymphocytes % (Auto) 13 % (10-50); Mean Corpuscular HGB Conc 33.3 g/dl (31.0-37.0); Mean Corpuscular Hemoglobin 29.6 pg (25.0-35.0); Mean Corpuscular Volume 89 fL (80-100); Monocytes # (Auto) 0.8 Thou/mm3 (0.0-0.8); Monocytes % (Auto) 7 % (0-12); Neutrophils # (Auto) 8.6 Thou/mm3 (1.8-7.7); Neutrophils % (Auto) 77 % (37-80); Nucleated Red Blood Cell # 0.05 Thou/mm3 (0.00-0.00); Nucleated Red Blood Cell % 1 /100 WBC (0); Platelet Count 258 Thou/mm3 (140-440); RDW Standard Deviation 47.7 fL (36.4-46.3); Red Blood Count 2.57 Miln/mm3 (4.00-5.20); White Blood Count 11.1 Thou/mm3 (3.6-11.0)
[2025-01-22 06:00] LABS: Hemoglobin 7.6 g/dL (12.0-16.0)
[2025-01-22 06:02] LABS: Alanine Aminotransferase < 7 U/L (10-49); Albumin, Serum 3.1 gm/dL (3.5-5.0); Albumin/Globulin Ratio 0.9 (1.2-2.2); Alkaline Phosphatase 82 U/L (46-116); Anion Gap 12 (7-16); Aspartate Amino Transferase 26 U/L (0-34); BUN/Creatinine Ratio 16 Ratio (12-20); Bilirubin,Total 0.5 mg/dL (0.3-1.2); Blood Urea Nitrogen 23 mg/dL (9-23); Calcium 7.9 mg/dL (8.3-10.6); Calcium (Corrected) 8.6 mg/dL (8.5-10.1); Carbon Dioxide 23.3 mMol/L (20.0-31.0); Chloride 97 mMol/L (98-107); Creatinine (Component) 1.4 mg/dL (0.6-1.3); Estimated Creatinine Clearance 71.3 mL/min (>60); Globulin 3.6 gm/dL (2.3-3.5); Glucose 104 mg/dL (74-106); Magnesium 1.9 mg/dL (1.6-2.6); Osmolality,Calculated 268 (275-295); Potassium 3.6 mMol/L (3.4-5.1); Sodium 132 mMol/L (136-145); Total Protein 6.7 gm/dL (5.7-8.2); eGFR 48 See Note
--- NOTE | 2025-01-22 09:01 | PC.CC ---
Addendum entered by Klaus Smith RN 01/22/25 16:09: 1607: Spoke to Carla / [facility] for an undate, she stated they are still at capacity and waiting for a bed. Addendum entered by Klaus Smith RN 01/22/25 09:59: 0935: called and spoke to Carla escobedo/ [facility], tracking number provided. She stated she will speak to leadership for bed capacity and will call me with an update. 925: called and spoke to Jennifer, she provided the tracking #[id number] Addendum entered by Klaus Smith RN 01/22/25 09:19: 0911: received call from Carla / [facility], she stated she spoke to Jennifer / [facility]. Carla requested the CT of chest report. Efaxed report to [facility]. Per Carla, Jennifer will call me with tracking #. I will follow up with Jennifer. Original Note: 0857: received call back from Jennifer / [facility], she informed me that [facility] is a contracted facility with [facility] and does not require an auth. I informed her that [facility] is requesting auth. She stated she will call [facility] then call me back. 0830: Called Shanon Cedeño and Theresa with [facility] for auth request for transfer. left messages to call me back.
[2025-01-22] MEDS: PANTOPRAZOLE INJ 40 MG VIAL IVP (09:02)
[2025-01-22] MEDS: ENOXAPARIN SOD INJ 40 MG/0.4 ML SYRINGE SC (09:03)
[2025-01-22] MEDS: cefTRIAXone/D5w 1gm IV premix 1 GM/50 ML BAG IV (09:03)
--- NOTE | 2025-01-22 09:12 | XR_ITS ---
EXAMINATION: Abdomen, supine, upright 2 views. Technique: Abdomen AP upright, supine 2 views Date and time of exam: January 22, 2025 0915 hours INDICATIONS: Abdominal pain and distention this week. FINDINGS: Large soft tissue mass in the pelvis extending to the upper abdomen No obstruction No free air IMPRESSION: Very large soft tissue mass in the pelvis extending to the upper abdomen
--- NOTE | 2025-01-22 10:56 | ESPR_ITS ---
<Statement entered by Irma Jacob MD - 01/26/25 14:49> I reviewed above note and agree with findings and plans. I have also personally examined the patient with medicine team and went over assessment and plan with medical team including compensation intern and resident physician. Documentation for date of: 01/22/25 Subjective Subjective Interval history: No acute overnight events. Seen and examined at bedside in patient endorses having episodes of nausea and vomiting after having breakfast as well as right upper quadrant pain near site of cholecystostomy tube. Site appeared clean/dry/intact and will continue to monitor. Pain continues to be managed with [employer]PERI[employer] SPECIALIST. States that she has not had a BM over multiple days and has not been passing gas and so made patient n.p.o. temporarily and ordered abdominal film that showed no evidence of obstruction. Otherwise, vital signs stable, CBC continues to show mild leukocytosis and stable hemoglobin of 7.6. CHEM panel showed continued improvement in renal function. She has been accepted by [facility] and insurance authorization has gone through but awaiting a bed at this time. Exam Vital Signs Temp Pulse Resp BP Pulse Ox O2 Del Method O2 Flow Rate 98.0 F 93 13 119/76 95 Nasal Cannula 1 01/22/25 08:00 01/22/25 08:13 01/22/25 08:13 01/22/25 08:00 01/22/25 08:13 01/22/25 08:00 01/22/25 08:13 Narrative Exam General: AOx3, mild distress, able to speak full sentences HEENT: NC/AT, mucous membranes moist, bilateral sclera anicteric Cardiovascular: regular rate and rhythm, S1/S2 present, no murmurs appreciated Pulmonary: clear to auscultation bilaterally, no rales/rhonchi/wheezes Abdominal: large abdomen, tender in all quadrants, firm but not tympanitic, no rebound/guarding, normal bowel sounds present Musculoskeletal: normal ROM, no peripheral edema Skin: warm and dry, intact, no rashes Neuro: CN II-XII intact, no focal deficits Objective Labs 01/23/25 05:06 01/23/25 05:06 Labs: Laboratory Results - last 24 hr 01/22/25 04:13 WBC 11.1 H RBC 2.57 L Hgb 7.6 L Hct 22.8 L MCV 89 MCH 29.6 MCHC 33.3 RDW Std Deviation 47.7 H Plt Count 258 Neut % (Auto) 77 Lymph % (Auto) 13 [place] % (Auto) 7 Eos % (Auto) 1 Baso % (Auto) 0 Neut # (Auto) 8.6 H Lymph # (Auto) 1.4 [place] # (Auto) 0.8 Eos # (Auto) 0.1 Baso # (Auto) 0.0 Immature Gran # (Auto) 0.15 H Absolute Nucleated RBC 0.05 H Immature Gran % 1 H Nucleated RBC % 1 H Sodium 132 L Potassium 3.6 Chloride 97 L Carbon Dioxide 23.3 Anion Gap 12 BUN 23 Creatinine 1.4 H Estim Creat Clear Calc 71.3 eGFR 48 L BUN/Creatinine Ratio 16 Glucose 104 Calculated Osmolality 268 L Calcium 7.9 L Corrected Calcium 8.6 Magnesium 1.9 Total Bilirubin 0.5 AST 26 ALT < 7 L Alkaline Phosphatase 82 Total Protein 6.7 Albumin 3.1 L Globulin 3.6 H Albumin/Globulin Ratio 0.9 L Quality Measures Quality Measures none Assessment & Plan Assessment Current Active Medications: Generic Name Dose Route Start Last Admin Trade Name Freq PRN Reason Stop Dose Admin Acetaminophen 650 mg 01/17/25 07:32 Acetaminophen 325 Mg Tablet PO 02/15/25 23:08 Q6H PRN Fever >100.3 or pain(1-3) Enoxaparin Sodium 40 mg 01/17/25 09:00 01/22/25 09:03 Enoxaparin Sod Inj 40 Mg/0.4 Ml Syringe SC 01/31/25 08:59 40 mg QDAY MARU Administration Ceftriaxone Sodium/Dextrose 1 gm in 50 mls @ 100 mls/hr 01/16/25 23:18 01/22/25 09:03 Rocephin/D5w 1gm Iv Premix IV 01/23/25 23:17 100 mls/hr QDAY MARU Administration Metronidazole 500 mg in 100 mls @ 200 mls/hr 01/16/25 23:19 01/22/25 05:17 Flagyl 500 Mg Iv IV 01/23/25 23:18 200 mls/hr Q8HR MARU Administration Metoclopramide HCl 10 mg 01/18/25 17:50 01/22/25 01:00 Metoclopramide Inj 5 Mg/Ml Vial 2 Ml IVP 02/17/25 17:49 10 mg Q6HR PRN Administration NAUSEA OR VOMITING Protocol Morphine Sulfate 30 mg 05/28/25 16:17 01/21/25 23:10 Morphine Sulfate Pf 1 Mg/Ml Fitness Leader Vial 30 Ml IV 01/22/25 16:16 30 mg PER ORDER PRN Administration PAIN Protocol Pantoprazole Sodium 40 mg 01/20/25 20:55 01/22/25 09:02 Pantoprazole Inj 40 Mg Vial IVP 02/19/25 20:54 40 mg QDAY MARU Administration Scopolamine 1 mg 01/18/25 22:00 01/21/25 21:01 Scopolamine 1 Mg Tdsy TOP 02/17/25 21:59 1 mg Q3D MARU Administration Sennosides 1 tab 01/16/25 23:14 01/21/25 14:16 Senna Tablet PO 02/15/25 23:13 1 tab QDAY PRN Administration constipation Protocol Plan Karlene Carvalho, 44-year-old female with past medical history of leiomyosarcoma s/p supracervical hysterectomy s/p chemotherapy in 2023, 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 intake for three weeks prior to admission. #Cholelithiasis #Biliary dyskinesia #Intractable nausea/vomiting #Decreased p.o. intake Intractable N/V for three weeks with decreased p.o. intake. Gallbladder ultrasound showed cholelithiasis and thickening of gallbladder wall, CT abdomen and pelvis showed cholelithiasis, and HIDA scan showed EF 22%. MRCP also obtained that showed cholelithiasis but no signs of cholecystitis; also showed abrupt truncation of common hepatic duct which may be related to large tumor mass in pelvis that extends into the upper abdomen. T bili, ALP, and LFTs all within normal limits, no fevers, mild leukocytosis. IR placement of percutaneous cholecystostomy tube placed 01/19/2025 ? General Surgery consulted, appreciate recommendations ? Ceftriaxone 1 g IV daily, Flagyl 500 mg IV every 8 hours (01/16-) ? Zofran as needed ? Urine culture 01/16: Mixed tevin ? Blood cultures 01/16: NGTD ? Bile fluid culture pending #Metastatic leiomyosarcoma #Pelvic mass #Intractable abdominal pain Diagnosed with cancer on 07/[address] Morris oncology in [place]. Last chemo session was in 2023 and patient has not seen an oncologist since August 2024 secondary to insurance issues. Per patient she has undergone total hysterectomy, chemotherapy and radiation in the past. On admission, CT A/P significant for metastatic pulmonary nodules, malignant ascites, and very large septated necrotic mass in pelvis extending into abdomen 25 x 27 x 17 cm. ? Dr. Stafford consulted, appreciate recommendations ? Pain management: [employer] EXPERIENCE SPECIALIST, will transition to long-acting morphine tomorrow ? Transfer process for surgical debulking ongoing #Normocytic anemia Possibly secondary to anemia of chronic disease from underlying malignancy versus iron deficiency. Patient denies blood in urine or stool. On admission hemoglobin 9.8, hematocrit 30.3, and MCV 88. ? Monitor with daily hematology panel while hospitalized Hospital management: Disposition: IV antibiotics, transfer process ongoing for debulking Diet: Dysphagia 2 diet DVT prophylaxis: Enoxaparin CODE STATUS: full code ----- Plan discussed with attending physician Dr. Cecil Alvarez MD PGY-1 Internal Medicine
--- NOTE | 2025-01-22 10:57 | ESDS_ITS ---
<Statement entered by Irma Jacob MD - 01/26/25 14:49> I reviewed above note and agree with findings and plans. I have also personally examined the patient with medicine team and went over assessment and plan with medical team including internship and resident physician. Planned Discharge Date 01/22/25 DS: Providers Provider Date of admission: 01/16/25 23:09 Primary care physician: Jennifer Higginbotham NP Admitting Provider: Kuldip Owusu MD Attending Provider on Admission: Irma Jacob MD Consults: 01/16/25 23:21 Consult to General Surgery Routine Comment: Consulting Provider: Elan Ramos 01/17/25 00:31 Consult to Oncology Routine Comment: Consulting Provider: Ranjeet Stafford 01/17/25 10:37 Referral Sophia Routine Comment: 01/21/25 10:38 Referral - Digital Commentator Routine Service Needed for Transfer: Surgical oncology Addl Comments:: 44-year-old female with 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 Gallbladder ultrasound showed cholelithiasis with thickening of the gallbladder wall and follow- up HIDA showed decreased gallbladder EF of 22%. CT A/P showed a septated necrotic mass (25 x 27 x 17 cm) in the pelvis that extended into the abdomen as well as metastatic pulmonary nodules. General surgery was consulted and patient was not a surgical candidate and recommended placement of percutaneous cholecystostomy tube, which was placed on 01/19 without significant improvement and patient symptoms. Oncologist also consulted and started patient on patient controlled analgesia but also consulted regarding possibility of palliative debulking surgery and on board. 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 Gallbladder ultrasound showed cholelithiasis with thickening of the gallbladder wall and follow-up HIDA showed decreased gallbladder EF of 22%. CT A/P showed a septated necrotic mass (25 x 27 x 17 cm) in the pelvis that extended into the abdomen as well as metastatic pulmonary nodules. General surgery was consulted and patient was not a surgical candidate and recommended placement of percutaneous cholecystostomy tube, which was placed on 01/19 without significant improvement in patient symptoms. Oncologist also consulted and started patient on patient controlled analgesia but also consulted regarding possibility of palliative debulking surgery and on board. Throughout hospital course, patient's symptoms were improved with medication compared to before she came into the hospital but continues to have episodes of nausea and vomiting. Vital signs remained stable, no spikes in temperature and hemodynamically stable. She did require transfusion of one unit pRBC for hemoglobin of 6.9 but has not had any episodes of hematochezia, melena, hemoptysis, hematemesis, or kamila hematuria and suspect to be due to fluid resuscitation (overall positive 7 L fluids) and/or malnutrition. Mild leukocytosis of 11-12 noted but again, no fevers, cough, or urinary symptoms but did remain on ceftriaxone and flagyl for possible intra-abdominal infection coverage. Chem panel showed improvement in renal function with fluid resuscitation, thus likely prerenal. Otherwise, patient is currently accepted by tertiary center for continued care and is stable for transfer. Diagnoses during admission: #Cholelithiasis #Biliary dyskinesia #Intractable nausea/vomiting #Decreased p.o. intake #Metastatic leiomyosarcoma #Pelvic mass #Intractable abdominal pain #Normocytic anemia ----- Plan discussed with attending physician Dr. Cecil Alvarez MD PGY-1 Internal Medicine Time Spent with Patient Time attestation: Total time spent providing and/or coordinating discharge services: Time spent: Greater than 30 minutes Exam Vital Signs Temp Pulse Resp BP Pulse Ox O2 Del Method O2 Flow Rate 98.0 F 93 13 119/76 95 Nasal Cannula 1 01/22/25 08:00 01/22/25 08:13 01/22/25 08:13 01/22/25 08:00 01/22/25 08:13 01/22/25 08:00 01/22/25 08:13 Narrative Exam General appearance: in mild distress laying in bed with nasal cannula, improving, able to speak full sentences, conversational HEENT: NC/AT, no scleral icterus, no conjunctival pallor, MMM Lungs: CTAB, no wheezes or crackles appreciated CVS: RRR, S1/S2 heard, no murmurs or rubs appreciated ABD: Large abdomen, diffusely tender to palpation, firm, bowel sounds appreciated, biliary drain placed in right upper quadrant EXT: no deformity/edema/lesions/cyanosis/clubbing, radial pulses 2+ BL, DP pulses 2 + BL SKIN: Skin exam normal without any rashes. Neuro: A&O x 3. No gross neurological deficits. Motor and sensory grossly intact in B/L UL and LL. Psych: Appropriate mood and affect Discharge Plan Problem List Was Problem List Reviewed/Reconciled?: Yes Prescriptions/Referrals Prescriptions/Med Rec: No Action No Known Home Medications Referrals: Jennifer Higginbotham NP [Primary Care Provider] - Patient/Caregiver Discharge Instructions Print Language: Danish Quality Discharge Quality Measures VTE prophylaxis
--- NOTE | 2025-01-22 11:05 | PC.DIETICIAN ---
Dietitian note: 1. RD ordered daily weights to better assess status, thinks she is gaining wt related to fluid 2. Resume reg diet with Ensure Plus TID when feasible 3. Consider PPN as pt with poor intakes OFFICE SUPPORT x3 weeks, still not able to keep foods down consistently, consult RD if within plan of care. Thank you
--- NOTE | 2025-01-22 16:05 | EKG_ITS ---
[facility] Test Date: 2025-01-22 Pat Name: EM SHINE [facility] Gender: Female Security Controls Assessor: [facility] : 1980 Requested By: Javier Alvarez Order Number: [id number] Reading MD: Javier Alvarez Measurements Intervals [place] Rate: 98 P: 1 NH: 172 QRS: 32 QRSD: 86 T: 0 QT: 352 QTc: 451 Interpretive Statements SINUS RHYTHM MINIMAL ST DEPRESSION Compared to ECG 01/17/2025 02:10:21 ST (T wave) deviation now present /store/S0/[id number].pdf
[2025-01-22] MEDS: Milk Of Magnesia Susp 30 ML UDC PO (16:49)
[2025-01-22] MEDS: MORPHINE SULF INJ 10 MG/ML VIAL 2 MG IVP (19:51)
[2025-01-22] MEDS: Morphine Sulfate PF 1 MG/ML PCA VIAL 30 ML 30 MG IV (22:11)
[2025-01-23] VITALS (10 sets, daily range): BP systolic 106–126; BP diastolic 64–76; PULSE 84–102; RESP 15–22; TEMP 36.1–36.7; O2SAT 92–97
--- NOTE | 2025-01-23 00:10 | PC.NURSE ---
Dr. Lal notified of patient complaining of uncontrolled pain and nausea. came to the bedside to evaluate patient, discuss new orders with family and patient. New orders received.
--- NOTE | 2025-01-23 00:11 | XR_ITS ---
Examination: Abdomen AP single view Technique: AP portable supine abdomen, single view Exam date and time: January 23, 2025, 0021 hours Comparison January 22, 2025 INDICATIONS: Abdominal distention today FINDINGS: No change in very large soft tissue mass in the pelvis extending into the upper abdomen No bowel obstruction No free air Mild to moderate narrowing hip joints IMPRESSION: No change in very large soft tissue mass in the pelvis extending into the upper abdomen
--- NOTE | 2025-01-23 00:12 | XR_ITS ---
Examination: Venous duplex lower extremity sonogram, bilateral. Date and time of exam: January 23, 2025 0741 hours INDICATIONS: Bilateral leg swelling and pain today Technique: Multiple sonographic images of the deep venous system have been obtained. B-mode/2-D grayscale imaging of vascular structures and Doppler spectral analysis (waveforms) and color performed Both legs are examined. Findings: Deep venous systems do not demonstrate abnormal echogenicity. All visualized deep veins exhibit compressibility. All visualized deep veins exhibit augmentation. Impression: Negative for deep vein thrombosis
[2025-01-23] MEDS: metroNIDAZOLE/NS 500 MG IVPB 500 MG/100 ML BAG 200 MG IV ×3 (05:06→22:58)
[2025-01-23 05:41] LABS: Basophils % (Auto) 0 % (0-2.5); Eosinophils # (Auto) 0.2 Thou/mm3 (0.0-0.5); Eosinophils % (Auto) 1 % (0-10); Hematocrit 22.5 % (36.0-46.0); Immature Granulocytes % (Auto) 1 % (0-0); Immature Granulocytes Auto 0.14 Thou/mm3 (0.00-0.00); Lymphocytes # (Auto) 1.7 Thou/mm3 (1.0-4.8); Lymphocytes % (Auto) 15 % (10-50); Mean Corpuscular HGB Conc 33.3 g/dl (31.0-37.0); Mean Corpuscular Hemoglobin 28.8 pg (25.0-35.0); Mean Corpuscular Volume 87 fL (80-100); Monocytes # (Auto) 0.7 Thou/mm3 (0.0-0.8); Monocytes % (Auto) 6 % (0-12); Neutrophils # (Auto) 8.7 Thou/mm3 (1.8-7.7); Neutrophils % (Auto) 76 % (37-80); Nucleated Red Blood Cell # 0.03 Thou/mm3 (0.00-0.00); Nucleated Red Blood Cell % 0 /100 WBC (0); Platelet Count 292 Thou/mm3 (140-440); RDW Standard Deviation 46.8 fL (36.4-46.3); White Blood Count 11.5 Thou/mm3 (3.6-11.0)
[2025-01-23 06:13] LABS: Hemoglobin 7.5 g/dL (12.0-16.0)
[2025-01-23 06:15] LABS: Alanine Aminotransferase < 7 U/L (10-49); Albumin, Serum 3.1 gm/dL (3.5-5.0); Albumin/Globulin Ratio 0.9 (1.2-2.2); Alkaline Phosphatase 78 U/L (46-116); Anion Gap 12 (7-16); Aspartate Amino Transferase 26 U/L (0-34); BUN/Creatinine Ratio 15 Ratio (12-20); Bilirubin,Total 0.5 mg/dL (0.3-1.2); Blood Urea Nitrogen 19 mg/dL (9-23); Calcium 7.9 mg/dL (8.3-10.6); Calcium (Corrected) 8.6 mg/dL (8.5-10.1); Carbon Dioxide 23.9 mMol/L (20.0-31.0); Chloride 96 mMol/L (98-107); Creatinine (Component) 1.3 mg/dL (0.6-1.3); Estimated Creatinine Clearance 76.8 mL/min (>60); Globulin 3.6 gm/dL (2.3-3.5); Glucose 98 mg/dL (74-106); Osmolality,Calculated 266 (275-295); Potassium 3.7 mMol/L (3.4-5.1); Sodium 132 mMol/L (136-145); Total Protein 6.7 gm/dL (5.7-8.2); eGFR 53 See Note
--- NOTE | 2025-01-23 09:14 | ESPR_ITS ---
<Statement entered by Irma Jacob MD - 01/28/25 09:33> I reviewed above note and agree with findings and plans. I have also personally examined the patient with medicine team and went over assessment and plan with medical team including leadership program intern and resident physician. Documentation for date of: 01/23/25 Subjective Subjective Interval history: Overnight patient's HEALTH EDUCATION ASSISTANT fell off and restarted. Additionally, given concerns for obstruction, another abdominal film was obtained that did not show evidence of obstruction and lower extremity Doppler obtained and was negative for DVT. Otherwise, patient was seen at bedside and states that she is in more pain after HEALTH EDUCATION ASSISTANT fell off but is manageable for now. Her primary concern is persistent nausea and vomiting for which EKG was obtained and showed QTc of 450. Will add an additional agent for her symptoms today. Will await for further updates regarding transfer as currently she has send accepting physician and insurance authorization went through, pending bed availability. Exam Vital Signs Temp Pulse Resp BP Pulse Ox O2 Del Method O2 Flow Rate 97.9 F 87 19 118/64 94 L Room Air 2 01/23/25 08:00 01/23/25 08:00 01/23/25 08:00 01/23/25 08:00 01/23/25 08:00 01/23/25 08:00 01/22/25 16:00 Narrative Exam General appearance: in mild distress laying in bed with nasal cannula, improving, able to speak full sentences, conversational HEENT: NC/AT, no scleral icterus, no conjunctival pallor, MMM Lungs: CTAB, no wheezes or crackles appreciated CVS: RRR, S1/S2 heard, no murmurs or rubs appreciated ABD: large abdomen, diffusely tender to palpation, firm, bowel sounds appreciated, biliary drain placed in right upper quadrant EXT: no deformity/edema/lesions/cyanosis/clubbing, radial pulses 2+ BL, DP pulses 2 + BL SKIN: skin exam normal without any rashes Neuro: A&O x 3. No gross neurological deficits. Motor and sensory grossly intact in B/L UL and LL Psych: Appropriate mood and affect Objective Labs 01/23/25 05:06 01/23/25 05:06 Labs: Laboratory Results - last 24 hr 01/23/25 05:06 WBC 11.5 H RBC 2.60 L Hgb 7.5 L Hct 22.5 L MCV 87 MCH 28.8 MCHC 33.3 RDW Std Deviation 46.8 H Plt Count 292 D Neut % (Auto) 76 Lymph % (Auto) 15 [place] % (Auto) 6 Eos % (Auto) 1 Baso % (Auto) 0 Neut # (Auto) 8.7 H Lymph # (Auto) 1.7 [place] # (Auto) 0.7 Eos # (Auto) 0.2 Baso # (Auto) 0.0 Immature Gran # (Auto) 0.14 H Absolute Nucleated RBC 0.03 H Immature Gran % 1 H Nucleated RBC % 0 Sodium 132 L Potassium 3.7 Chloride 96 L Carbon Dioxide 23.9 Anion Gap 12 BUN 19 Creatinine 1.3 Estim Creat Clear Calc 76.8 eGFR 53 L BUN/Creatinine Ratio 15 Glucose 98 Calculated Osmolality 266 L Calcium 7.9 L Corrected Calcium 8.6 Magnesium 2.0 Total Bilirubin 0.5 AST 26 ALT < 7 L Alkaline Phosphatase 78 Total Protein 6.7 Albumin 3.1 L Globulin 3.6 H Albumin/Globulin Ratio 0.9 L Quality Measures Quality Measures VTE prophylaxis Assessment & Plan Assessment Current Active Medications: Generic Name Dose Route Start Last Admin Trade Name Freq PRN Reason Stop Dose Admin Acetaminophen 650 mg 01/17/25 07:32 Acetaminophen 325 Mg Tablet PO 02/15/25 23:08 Q6H PRN Fever >100.3 or pain(1-3) Enoxaparin Sodium 40 mg 01/17/25 09:00 01/22/25 09:03 Enoxaparin Sod Inj 40 Mg/0.4 Ml Syringe SC 01/31/25 08:59 40 mg QDAY MARU Administration Ceftriaxone Sodium/Dextrose 1 gm in 50 mls @ 100 mls/hr 01/16/25 23:18 01/22/25 09:03 Rocephin/D5w 1gm Iv Premix IV 01/23/25 23:17 100 mls/hr QDAY MARU Administration Metronidazole 500 mg in 100 mls @ 200 mls/hr 01/16/25 23:19 01/23/25 05:06 Flagyl 500 Mg Iv IV 01/23/25 23:18 200 mls/hr Q8HR AMRU Administration Metoclopramide HCl 10 mg 01/18/25 17:50 01/22/25 19:51 Metoclopramide Inj 5 Mg/Ml Vial 2 Ml IVP 02/17/25 17:49 10 mg Q6HR PRN Administration NAUSEA OR VOMITING Protocol Morphine Sulfate 30 mg 01/22/25 20:16 01/22/25 22:11 Morphine Sulfate Pf 1 Mg/Ml Medicare Compliance Auditor Vial 30 Ml IV 01/27/25 20:11 30 mg PER ORDER PRN Administration PAIN Protocol Pantoprazole Sodium 40 mg 01/20/25 20:55 01/22/25 09:02 Pantoprazole Inj 40 Mg Vial IVP 02/19/25 20:54 40 mg QDAY MARU Administration Scopolamine 1 mg 01/18/25 22:00 01/21/25 21:01 Scopolamine 1 Mg Tdsy TOP 02/17/25 21:59 1 mg Q3D MARU Administration Sennosides 1 tab 01/16/25 23:14 01/21/25 14:16 Senna Tablet PO 02/15/25 23:13 1 tab QDAY PRN Administration constipation Protocol Plan Karlene Carvalho, 44-year-old female with past medical history of leiomyosarcoma s/p supracervical hysterectomy s/p chemotherapy in 2023, 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 intake for three weeks prior to admission. #Cholelithiasis #Biliary dyskinesia #Intractable nausea/vomiting #Decreased p.o. intake Intractable N/V for three weeks with decreased p.o. intake. Gallbladder ultrasound showed cholelithiasis and thickening of gallbladder wall, CT abdomen and pelvis showed cholelithiasis, and HIDA scan showed EF 22%. MRCP also obtained that showed cholelithiasis but no signs of cholecystitis; also showed abrupt truncation of common hepatic duct which may be related to large tumor mass in pelvis that extends into the upper abdomen. T bili, ALP, and LFTs all within normal limits, no fevers, mild leukocytosis. IR placement of percutaneous cholecystostomy tube placed 01/19/2025 ? General Surgery consulted, appreciate recommendations ? Ceftriaxone 1 g IV daily, Flagyl 500 mg IV every 8 hours (01/16-) ? Zofran as needed ? Scopolamine patch every 72 hours ? Urine culture 01/16: Mixed tevin ? Blood cultures 01/16: no growth ? Bile fluid culture: no growth #Metastatic leiomyosarcoma #Pelvic mass #Intractable abdominal pain Diagnosed with cancer on 07/[address] Morris oncology in [place]. Last chemo session was in 2023 and patient has not seen an oncologist since August 2024 secondary to insurance issues. Per patient she has undergone total hysterectomy, chemotherapy and radiation in the past. On admission, CT A/P significant for metastatic pulmonary nodules, malignant ascites, and very large septated necrotic mass in pelvis extending into abdomen 25 x 27 x 17 cm. ? Dr. Stafford consulted, appreciate recommendations ? Pain management: HEALTH EDUCATION ASSISTANT, will transition to long-acting morphine tomorrow ? Transfer process for surgical debulking ongoing #Normocytic anemia Possibly secondary to anemia of chronic disease from underlying malignancy versus iron deficiency. Patient denies blood in urine or stool. On admission hemoglobin 9.8, hematocrit 30.3, and MCV 88. ? Monitor with daily hematology panel while hospitalized #Constipation Given Senna and milk of mag without bowel movements. Patient states that she will like to continue to try oral agents before trying enema/suppository. Hospital management: Disposition: IV antibiotics, transfer process ongoing for debulking Diet: Dysphagia 2 diet DVT prophylaxis: Enoxaparin CODE STATUS: full code ----- Plan discussed with attending physician Dr. Cecil Alvarez MD PGY-1 Internal Medicine
[2025-01-23] MEDS: METOCLOPRAMIDE INJ 5 MG/ML VIAL 2 ML 10 MG IVP (09:17)
--- NOTE | 2025-01-23 09:46 | PD.ONCPROG ---
Documentation for date of: 01/23/25 Subjective Subjective Interval history: Patient awaiting possible transfer to tertiary care for possible palliative surgery for debulking large recurrent pelvic malignancy which is extended into the abdominal region.. Has noted lung mets as well. Currently back on INSTITUTIONAL RESEARCH COORDINATOR pump appears more comfortable this a.m. Exam Vital Signs Temp Pulse Resp BP Pulse Ox O2 Del Method O2 Flow Rate 97.9 F 87 17 118/64 94 L Room Air 2 01/23/25 08:00 01/23/25 08:00 01/23/25 08:00 01/23/25 08:00 01/23/25 08:00 01/23/25 08:00 01/22/25 16:00 Narrative Exam Appears comfortable this a.m. Objective Labs 01/23/25 05:06 01/23/25 05:06 Labs: Laboratory Results - last 24 hr 01/23/25 05:06 WBC 11.5 H RBC 2.60 L Hgb 7.5 L Hct 22.5 L MCV 87 MCH 28.8 MCHC 33.3 RDW Std Deviation 46.8 H Plt Count 292 D Neut % (Auto) 76 Lymph % (Auto) 15 [place] % (Auto) 6 Eos % (Auto) 1 Baso % (Auto) 0 Neut # (Auto) 8.7 H Lymph # (Auto) 1.7 [place] # (Auto) 0.7 Eos # (Auto) 0.2 Baso # (Auto) 0.0 Immature Gran # (Auto) 0.14 H Absolute Nucleated RBC 0.03 H Immature Gran % 1 H Nucleated RBC % 0 Sodium 132 L Potassium 3.7 Chloride 96 L Carbon Dioxide 23.9 Anion Gap 12 BUN 19 Creatinine 1.3 Estim Creat Clear Calc 76.8 eGFR 53 L BUN/Creatinine Ratio 15 Glucose 98 Calculated Osmolality 266 L Calcium 7.9 L Corrected Calcium 8.6 Magnesium 2.0 Total Bilirubin 0.5 AST 26 ALT < 7 L Alkaline Phosphatase 78 Total Protein 6.7 Albumin 3.1 L Globulin 3.6 H Albumin/Globulin Ratio 0.9 L Assessment & Plan A&P Narrative 1. History of supracervical JORDAN/BSO 05/27/2023 leiomyosarcoma. 2. Received adjuvant chemo between September 2023 through July 2024 at [facility] 3. Admitted with pain nausea vomiting. Imaging studies show widespread mets involving lungs with large recurrent pelvic mass which extends to abdomen. 4. Awaiting transfer to tertiary [facility] facility which may perform palliative debulking surgery. 5. Receiving supportive care including antinausea meds INSTITUTIONAL RESEARCH COORDINATOR pump for pain. Patient is aware of guarded prognosis overall. Time Spent With Patient Time: Total time spent is greater than 50% in coordination of care (as documented) at patient's floor/unit and/or counseling patient:
--- NOTE | 2025-01-23 09:54 | PC.CM ---
Addendum entered by Christian Mancilla RN 01/24/25 17:09: 1705- Received call from RIOS Guevara RN at [facility], no bed available at this time. Updated Dr. Alvarez and recommended expanding search to other hospitals, he agrees with this and we will send referrals to [facility], [facility], and [facility]. Addendum entered by Christian Mancilla RN 01/24/25 16:37: 1635- Call placed to [facility] TC left message requesting update on bed status for patient pending transfer. Will await update from them. Addendum entered by Christian Mancilla RN 01/24/25 09:53: 0950- Spoke with RIOS Marrero RN at [facility] regarding bed availability this morning, no bed at this time, they are at capacity, will await update from [facility] transfer center. Addendum entered by Tracee Watt RN 01/23/25 18:43: I updated packet and I made a new CD with [facility]. Packet and CD will be taken to Med surg floor and I will report to charge nurse. Addendum entered by Tracee Watt RN 01/23/25 18:35: 1830 I called [facility] transfer center to follow up on transfer. They do not have any open beds at this time. I gave a verbal update and provided vital signs. I also provided the number to Dr. Fonseca since he is on this evening. Packet Updated. Addendum entered by Tracee Watt RN 01/23/25 18:33: 1230 I followed up with [facility] and they do not have any open beds at this time. Original Note: 0900 I spoke to Ashley at [facility] and she states they still do not have a bed for patient. She has been accepted medically and she has been financially cleared. I will check back later today to see if they have a bed. Packet ready for transfer.
[2025-01-23] MEDS: ENOXAPARIN SOD INJ 40 MG/0.4 ML SYRINGE SC (09:58)
[2025-01-23] MEDS: cefTRIAXone/D5w 1gm IV premix 1 GM/50 ML BAG IV (09:58)
[2025-01-23] MEDS: PANTOPRAZOLE INJ 40 MG VIAL IVP (09:58)
--- NOTE | 2025-01-23 10:34 | PC.SS ---
SS follow up note; Patient is pending transfer, pending bed availability to [facility].
[2025-01-23] MEDS: PROMETHAZINE INJ 25 MG in SODIUM CHLORIDE 0.9% 50 ML IV ×2 (11:58→20:14)
[2025-01-23] MEDS: Morphine Sulfate PF 1 MG/ML PCA VIAL 30 ML 30 MG IV (15:50)
--- NOTE | 2025-01-23 21:15 | PC.NURSE ---
Pt complaining of unrelieved pain rated 12/10 after being sitting on the toilet. Dr. Stafford was made aware, SOLAR INSTALLATION TECHNICIAN pump was increased to double the previous order following Dr. Stafford's instructions.
[2025-01-24] VITALS (10 sets, daily range): BP systolic 98–130; BP diastolic 63–86; PULSE 68–106; RESP 14–21; TEMP 36–36.6; O2SAT 93–97; BMI 40.0
[2025-01-24] MEDS: Morphine Sulfate PF 1 MG/ML PCA VIAL 30 ML 30 MG IV ×2 (02:50→11:35)
--- NOTE | 2025-01-24 03:17 | PC.NURSE ---
BRYOLOGIST pump syringe was changed, wasted 5 ccs with RENETTA Bustamante.
[2025-01-24] MEDS: metroNIDAZOLE/NS 500 MG IVPB 500 MG/100 ML BAG 200 MG IV ×3 (05:46→21:22)
[2025-01-24 05:47] LABS: Basophils % (Auto) 0 % (0-2.5); Eosinophils # (Auto) 0.3 Thou/mm3 (0.0-0.5); Eosinophils % (Auto) 2 % (0-10); Hematocrit 23.7 % (36.0-46.0); Immature Granulocytes % (Auto) 2 % (0-0); Immature Granulocytes Auto 0.19 Thou/mm3 (0.00-0.00); Lymphocytes % (Auto) 17 % (10-50); Mean Corpuscular HGB Conc 32.1 g/dl (31.0-37.0); Mean Corpuscular Hemoglobin 29.1 pg (25.0-35.0); Mean Corpuscular Volume 91 fL (80-100); Monocytes # (Auto) 0.9 Thou/mm3 (0.0-0.8); Monocytes % (Auto) 7 % (0-12); Neutrophils # (Auto) 8.6 Thou/mm3 (1.8-7.7); Neutrophils % (Auto) 72 % (37-80); Nucleated Red Blood Cell # 0.05 Thou/mm3 (0.00-0.00); Nucleated Red Blood Cell % 0 /100 WBC (0); Platelet Count 324 Thou/mm3 (140-440); RDW Standard Deviation 52.1 fL (36.4-46.3); Red Blood Count 2.61 Miln/mm3 (4.00-5.20)
[2025-01-24 06:37] LABS: Alanine Aminotransferase < 7 U/L (10-49); Albumin, Serum 3.2 gm/dL (3.5-5.0); Albumin/Globulin Ratio 0.9 (1.2-2.2); Alkaline Phosphatase 78 U/L (46-116); Anion Gap 12 (7-16); Aspartate Amino Transferase 26 U/L (0-34); BUN/Creatinine Ratio 15 Ratio (12-20); Bilirubin,Total 0.4 mg/dL (0.3-1.2); Blood Urea Nitrogen 22 mg/dL (9-23); Calcium (Corrected) 8.6 mg/dL (8.5-10.1); Carbon Dioxide 23.8 mMol/L (20.0-31.0); Chloride 96 mMol/L (98-107); Creatinine (Component) 1.5 mg/dL (0.6-1.3); Estimated Creatinine Clearance 66.6 mL/min (>60); Globulin 3.6 gm/dL (2.3-3.5); Glucose 110 mg/dL (74-106); Osmolality,Calculated 268 (275-295); Phosphorous 3.1 mg/dL (2.4-5.1); Sodium 132 mMol/L (136-145); Total Protein 6.8 gm/dL (5.7-8.2); eGFR 44 See Note
[2025-01-24 08:02] LABS: Hemoglobin 7.6 g/dL (12.0-16.0)
[2025-01-24] MEDS: ENOXAPARIN SOD INJ 40 MG/0.4 ML SYRINGE SC (08:10)
[2025-01-24] MEDS: cefTRIAXone/D5w 1gm IV premix 1 GM/50 ML BAG IV (08:10)
[2025-01-24] MEDS: PANTOPRAZOLE INJ 40 MG VIAL IVP (08:10)
[2025-01-24] MEDS: PROMETHAZINE INJ 25 MG in SODIUM CHLORIDE 0.9% 50 ML IV (09:02)
--- NOTE | 2025-01-24 10:20 | PC.SS ---
SS follow up note; SS contacted [facility] transfer nurse to check status on transfer, [facility] informed SS that at the time [facility].
--- NOTE | 2025-01-24 11:00 | ESPR_ITS ---
<Statement entered by Irma Jacob MD - 02/01/25 13:33> I reviewed above note and agree with findings and plans. I have also personally examined the patient with medicine team and went over assessment and plan with medical team including geotechnical intern and resident physician. Documentation for date of: 01/24/25 Subjective Subjective Interval history: No acute overnight events. Seen and examined at bedside and patient states that she was able to tolerate hold down her food from yesterday brought by family and that nausea has improved. Although continues to have some pain but still managed well with INSULATION SUPERVISOR. Continues to not have a BM and at this time we will monitor but spoke to patient regarding possibility of enema/suppository if needed. Vital signs stable. CBC shows mildly elevated leukocytosis with stable, hemoglobin stable at 7.6. CHEM panel showed sodium of 132, slightly worsening creatinine from 1.3 to 1.5. Otherwise, we will continue to await for updates regarding whether patient has a bed available at [facility]. Exam Vital Signs Temp Pulse Resp BP Pulse Ox O2 Del Method O2 Flow Rate 97.8 F 68 18 130/86 H 97 Nasal Cannula 1 01/24/25 08:00 01/24/25 09:03 01/24/25 09:03 01/24/25 08:00 01/24/25 09:03 01/24/25 08:00 01/24/25 09:03 Narrative Exam General appearance: in mild distress laying in bed with nasal cannula, improving, able to speak full sentences, conversational HEENT: NC/AT, no scleral icterus, no conjunctival pallor, MMM Lungs: CTAB, no wheezes or crackles appreciated CVS: RRR, S1/S2 heard, no murmurs or rubs appreciated ABD: large abdomen, diffusely tender to palpation, firm, bowel sounds appreciated, biliary drain placed in right upper quadrant EXT: no deformity/edema/lesions/cyanosis/clubbing, radial pulses 2+ BL, DP pulses 2 + BL SKIN: skin exam normal without any rashes Neuro: A&O x 3. No gross neurological deficits. Motor and sensory grossly intact in B/L UL and LL Psych: Appropriate mood and affect Objective Labs 01/24/25 05:07 01/24/25 05:07 Labs: Laboratory Results - last 24 hr 01/24/25 05:07 WBC 12.0 H RBC 2.61 L Hgb 7.6 L Hct 23.7 L MCV 91 MCH 29.1 MCHC 32.1 RDW Std Deviation 52.1 H Plt Count 324 D Neut % (Auto) 72 Lymph % (Auto) 17 [place] % (Auto) 7 Eos % (Auto) 2 Baso % (Auto) 0 Neut # (Auto) 8.6 H Lymph # (Auto) 2.0 [place] # (Auto) 0.9 H Eos # (Auto) 0.3 Baso # (Auto) 0.0 Immature Gran # (Auto) 0.19 H Absolute Nucleated RBC 0.05 H Immature Gran % 2 H Nucleated RBC % 0 Sodium 132 L Potassium 4.0 Chloride 96 L Carbon Dioxide 23.8 Anion Gap 12 BUN 22 Creatinine 1.5 H Estim Creat Clear Calc 66.6 eGFR 44 L BUN/Creatinine Ratio 15 Glucose 110 H Calculated Osmolality 268 L Calcium 8.0 L Corrected Calcium 8.6 Phosphorus 3.1 Magnesium 2.0 Total Bilirubin 0.4 AST 26 ALT < 7 L Alkaline Phosphatase 78 Total Protein 6.8 Albumin 3.2 L Globulin 3.6 H Albumin/Globulin Ratio 0.9 L Quality Measures Quality Measures VTE prophylaxis Assessment & Plan Assessment Current Active Medications: Generic Name Dose Route Start Last Admin Trade Name Freq PRN Reason Stop Dose Admin Acetaminophen 650 mg 01/17/25 07:32 Acetaminophen 325 Mg Tablet PO 02/15/25 23:08 Q6H PRN Fever >100.3 or pain(1-3) Enoxaparin Sodium 40 mg 01/17/25 09:00 01/24/25 08:10 Enoxaparin Sod Inj 40 Mg/0.4 Ml Syringe SC 01/31/25 08:59 40 mg QDAY MARU Administration Promethazine HCl 25 mg/ Sodium 51 mls @ 2.5 mls/min 01/23/25 11:16 01/24/25 09:02 Chloride IV 02/22/25 11:11 2.5 mls/min Q6HR PRN Administration NAUSEA OR VOMITING Ceftriaxone Sodium/Dextrose 1 gm in 50 mls @ 100 mls/hr 01/24/25 09:00 01/24/25 08:10 Rocephin/D5w 1gm Iv Premix IV 01/31/25 08:59 100 mls/hr QDAY MARU Administration Metronidazole 500 mg in 100 mls @ 200 mls/hr 01/24/25 06:00 01/24/25 05:46 Flagyl 500 Mg Iv IV 01/31/25 05:59 200 mls/hr Q8HR MARU Administration Metoclopramide HCl 10 mg 01/18/25 17:50 01/23/25 09:17 Metoclopramide Inj 5 Mg/Ml Vial 2 Ml IVP 02/17/25 17:49 10 mg Q6HR PRN Administration NAUSEA OR VOMITING Protocol Morphine Sulfate 30 mg 01/23/25 21:14 01/24/25 02:50 Morphine Sulfate Pf 1 Mg/Ml Evp [employer] Product [employer] Vial 30 Ml IV 01/27/25 20:11 30 mg PER ORDER PRN Administration PAIN Protocol Pantoprazole Sodium 40 mg 01/20/25 20:55 01/24/25 08:10 Pantoprazole Inj 40 Mg Vial IVP 02/19/25 20:54 40 mg QDAY MARU Administration Scopolamine 1 mg 01/18/25 22:00 01/21/25 21:01 Scopolamine 1 Mg Tdsy TOP 02/17/25 21:59 1 mg Q3D MARU Administration Sennosides 1 tab 01/16/25 23:14 01/21/25 14:16 Senna Tablet PO 02/15/25 23:13 1 tab QDAY PRN Administration constipation Protocol Plan Karlene Carvalho, 44-year-old female with past medical history of leiomyosarcoma s/p supracervical hysterectomy s/p chemotherapy in 2023, 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 intake for three weeks prior to admission. #Cholelithiasis #Biliary dyskinesia #Intractable nausea/vomiting #Decreased p.o. intake Intractable N/V for three weeks with decreased p.o. intake. Gallbladder ultrasound showed cholelithiasis and thickening of gallbladder wall, CT abdomen and pelvis showed cholelithiasis, and HIDA scan showed EF 22%. MRCP also obtained that showed cholelithiasis but no signs of cholecystitis; also showed abrupt truncation of common hepatic duct which may be related to large tumor mass in pelvis that extends into the upper abdomen. T bili, ALP, and LFTs all within normal limits, no fevers, mild leukocytosis. IR placement of percutaneous cholecystostomy tube placed 01/19/2025 ? General Surgery consulted, appreciate recommendations ? Ceftriaxone 1 g IV daily, Flagyl 500 mg IV every 8 hours (01/16-) ? Zofran as needed ? Scopolamine patch every 72 hours ? Urine culture 01/16: Mixed tevin ? Blood cultures 01/16: no growth ? Bile fluid culture: no growth #Metastatic leiomyosarcoma #Pelvic mass #Intractable abdominal pain Diagnosed with cancer on 07/[address] Morris oncology in [place]. Last chemo session was in 2023 and patient has not seen an oncologist since August 2024 secondary to insurance issues. Per patient she has undergone total hysterectomy, chemotherapy and radiation in the past. On admission, CT A/P significant for metastatic pulmonary nodules, malignant ascites, and very large septated necrotic mass in pelvis extending into abdomen 25 x 27 x 17 cm. ? Dr. Stafford consulted, appreciate recommendations ? Pain management: INSULATION SUPERVISOR, will transition to long-acting morphine tomorrow ? Transfer process for surgical debulking ongoing: accepting physician and insurance authorized, currently pending bed #Normocytic anemia Possibly secondary to anemia of chronic disease from underlying malignancy versus iron deficiency. Patient denies blood in urine or stool. On admission hemoglobin 9.8, hematocrit 30.3, and MCV 88. ? Monitor with daily hematology panel while hospitalized #Constipation Given Senna and milk of mag without bowel movements. Patient states that she will like to continue to try oral agents before trying enema/suppository. Hospital management: Disposition: IV antibiotics, transfer process ongoing for debulking Diet: Dysphagia 2 diet DVT prophylaxis: Enoxaparin CODE STATUS: full code ----- Plan discussed with attending physician Dr. Cecil Alvarez MD PGY-1 Internal Medicine
[2025-01-24] MEDS: SENNA TABLET 1 TAB PO (14:46)
--- NOTE | 2025-01-24 15:27 | PD.ONCPROG ---
Documentation for date of: 01/24/25 Subjective Subjective Interval history: Appearing more comfortable as WELL SERVICING RIG OPERATOR has been increased to continue the rate of 2 mg/h with bolus every 15 minutes. Exam Vital Signs Temp Pulse Resp BP Pulse Ox O2 Del Method O2 Flow Rate 97.8 F 99 18 130/86 H 93 L Nasal Cannula 1 01/24/25 12:00 01/24/25 12:00 01/24/25 12:00 01/24/25 12:00 01/24/25 12:00 01/24/25 12:00 01/24/25 12:00 Narrative Exam Appearing more comfortable. Objective Labs 01/24/25 05:07 01/24/25 05:07 Labs: Laboratory Results - last 24 hr 01/24/25 05:07 WBC 12.0 H RBC 2.61 L Hgb 7.6 L Hct 23.7 L MCV 91 MCH 29.1 MCHC 32.1 RDW Std Deviation 52.1 H Plt Count 324 D Neut % (Auto) 72 Lymph % (Auto) 17 [place] % (Auto) 7 Eos % (Auto) 2 Baso % (Auto) 0 Neut # (Auto) 8.6 H Lymph # (Auto) 2.0 [place] # (Auto) 0.9 H Eos # (Auto) 0.3 Baso # (Auto) 0.0 Immature Gran # (Auto) 0.19 H Absolute Nucleated RBC 0.05 H Immature Gran % 2 H Nucleated RBC % 0 Sodium 132 L Potassium 4.0 Chloride 96 L Carbon Dioxide 23.8 Anion Gap 12 BUN 22 Creatinine 1.5 H Estim Creat Clear Calc 66.6 eGFR 44 L BUN/Creatinine Ratio 15 Glucose 110 H Calculated Osmolality 268 L Calcium 8.0 L Corrected Calcium 8.6 Phosphorus 3.1 Magnesium 2.0 Total Bilirubin 0.4 AST 26 ALT < 7 L Alkaline Phosphatase 78 Total Protein 6.8 Albumin 3.2 L Globulin 3.6 H Albumin/Globulin Ratio 0.9 L Assessment & Plan A&P Narrative 1. History of supracervical JORDAN/BSO 05/27/2023 leiomyosarcoma. 2. Received adjuvant chemo between September 2023 through July 2024 at [facility] 3. Admitted with pain nausea vomiting. Imaging studies show widespread mets involving lungs with large recurrent pelvic mass which extends to abdomen. 4. Awaiting transfer to tertiary OLIVING MACHINE OPERATOR Onc facility which may perform palliative debulking surgery. 5. Receiving supportive care including antinausea meds WELL SERVICING RIG OPERATOR pump for pain. With increase in MS rate to 2 mg/h with bolus every 15 minutes as needed appears more comfortable today. Time Spent With Patient Time: Total time spent is greater than 50% in coordination of care (as documented) at patient's floor/unit and/or counseling patient:
--- NOTE | 2025-01-24 17:22 | PC.CC ---
Addendum entered by Christian Mancilla RN 01/24/25 18:01: 1800-Updated Dr. Alvarez that we will need to obtain auth tomorrow morning if the patient does not get a bed at [facility], he will update attending MD. Addendum entered by Christian Mancilla RN 01/24/25 17:58: 1756- Phone call to [facility], spoke with Daisy in the TC to initiate transfer request, requesting auth prior to initiating transfer request. Will update Dr. Alvarez that RIOS RN tomorrow AM will have to obtain auth and present case if she is not tranferred to [facility]. Addendum entered by Christian Mancilla RN 01/24/25 17:55: 1752- Phone call to [facility] TC to initiate transfer request, no answer, left voicemail message with my contact information and the reason for my call, will await to hear back from them. Addendum entered by Christian Mancilla RN 01/24/25 17:50: 1745- Spoke with RENETTA Neves at [facility] to initiate transfer request, [facility]. He stated we would need auth prior to initiating transfer request, he will cancel request until we have auth and initiate again. Called [facility] GREER Ross at [phone] to try and request auth, message stating the person you are trying to reach is unavailable and no option to leave a voicemail message. Original Note: 1705- Received call from RIOS Guevara RN at [facility], no bed available at this time. Updated Dr. Alvarez and recommended expanding search to other hospitals, he agrees with this and we will send referrals to [facility], [facility], and [facility]. Clinicals sent via fax to these facilities with contact information for RIOS RN and referring MD Dr. Jacob.
[2025-01-24] MEDS: SCOPOLAMINE 1 MG TDSY TOP (21:35)
[2025-01-24] MEDS: METOCLOPRAMIDE INJ 5 MG/ML VIAL 2 ML 10 MG IVP (22:44)
[2025-01-25] VITALS (11 sets, daily range): BP systolic 103–118; BP diastolic 65–76; PULSE 85–100; RESP 16–20; TEMP 35.9–36.9; O2SAT 92–97; BMI 42.3
[2025-01-25] MEDS: Morphine Sulfate PF 1 MG/ML PCA VIAL 30 ML 30 MG IV ×2 (00:41→16:54)
--- NOTE | 2025-01-25 00:47 | PC.NURSE ---
1.5 mls of morphine TEXTILE KNITTER wasted in med room with RENETTA Bustamante.
[2025-01-25] MEDS: metroNIDAZOLE/NS 500 MG IVPB 500 MG/100 ML BAG 200 MG IV ×3 (05:16→21:13)
[2025-01-25 06:05] LABS: Alanine Aminotransferase < 7 U/L (10-49); Albumin, Serum 3.2 gm/dL (3.5-5.0); Albumin/Globulin Ratio 0.9 (1.2-2.2); Alkaline Phosphatase 79 U/L (46-116); Anion Gap 12 (7-16); Aspartate Amino Transferase 26 U/L (0-34); BUN/Creatinine Ratio 13 Ratio (12-20); Basophils # (Auto) 0.1 Thou/mm3 (0.0-0.2); Basophils % (Auto) 1 % (0-2.5); Bilirubin,Total 0.4 mg/dL (0.3-1.2); Blood Urea Nitrogen 20 mg/dL (9-23); Calcium 8.4 mg/dL (8.3-10.6); Chloride 96 mMol/L (98-107); Creatinine (Component) 1.5 mg/dL (0.6-1.3); Eosinophils # (Auto) 0.3 Thou/mm3 (0.0-0.5); Eosinophils % (Auto) 3 % (0-10); Estimated Creatinine Clearance 66.6 mL/min (>60); Globulin 3.7 gm/dL (2.3-3.5); Glucose 95 mg/dL (74-106); Immature Granulocytes % (Auto) 1 % (0-0); Immature Granulocytes Auto 0.14 Thou/mm3 (0.00-0.00); Lymphocytes % (Auto) 19 % (10-50); Magnesium 2.2 mg/dL (1.6-2.6); Mean Corpuscular HGB Conc 30.8 g/dl (31.0-37.0); Mean Corpuscular Hemoglobin 28.6 pg (25.0-35.0); Mean Corpuscular Volume 93 fL (80-100); Monocytes # (Auto) 0.8 Thou/mm3 (0.0-0.8); Monocytes % (Auto) 7 % (0-12); Neutrophils # (Auto) 7.5 Thou/mm3 (1.8-7.7); Neutrophils % (Auto) 70 % (37-80); Nucleated Red Blood Cell # 0.03 Thou/mm3 (0.00-0.00); Nucleated Red Blood Cell % 0 /100 WBC (0); Osmolality,Calculated 265 (275-295); Phosphorous 3.2 mg/dL (2.4-5.1); Platelet Count 320 Thou/mm3 (140-440); Potassium 4.1 mMol/L (3.4-5.1); RDW Standard Deviation 53.9 fL (36.4-46.3); Red Blood Count 2.59 Miln/mm3 (4.00-5.20); Sodium 131 mMol/L (136-145); Total Protein 6.9 gm/dL (5.7-8.2); White Blood Count 10.8 Thou/mm3 (3.6-11.0); eGFR 44 See Note
[2025-01-25 06:10] LABS: Hemoglobin 7.4 g/dL (12.0-16.0)
[2025-01-25] MEDS: METOCLOPRAMIDE INJ 5 MG/ML VIAL 2 ML 10 MG IVP ×2 (07:42→13:53)
[2025-01-25] MEDS: ENOXAPARIN SOD INJ 40 MG/0.4 ML SYRINGE SC (08:11)
[2025-01-25] MEDS: cefTRIAXone/D5w 1gm IV premix 1 GM/50 ML BAG IV (08:11)
[2025-01-25] MEDS: PANTOPRAZOLE INJ 40 MG VIAL IVP (08:11)
--- NOTE | 2025-01-25 09:29 | PC.CC ---
Addendum entered by Ilan Darby RN 01/25/25 17:53: 1734 received call from [facility], spoke to Purnima. Purnima stated pt is declined due to insurance. [facility] doesn't takke pt insurance. I asked Purnima, I can speak to insurance and work on getting insurance auth. She stated pt is declined. Even if pt gets insurance auth. They are 115% at capacity and are under critical red census. Addendum entered by Ilan Darby RN 01/25/25 15:46: 1545 Clinicals sent to [facility]. Addendum entered by Ilan Darby RN 01/25/25 15:26: 1523 called [facility], spoke to Purnima and initiated the transfer. error in time in previous note, time was 1510 received call from Laureen michelle [facility] that she presented the case to general surgery and shoe singer-onc. They are declining the transfer saying the patient needs a [facility]. Addendum entered by Ilan Darby RN 01/25/25 15:22: 1441 received call from Laureen michelle [facility] that she presented the case to general surgery and shoe singer-onc. They are declining the transfer saying the patient needs a [facility]. Addendum entered by Ilan Darby RN 01/25/25 14:50: 1441 spoke to Laureen [facility], gave verbal clinials. She stated she will check for beds and present the case. Addendum entered by Ilan Darby RN 01/25/25 11:33: 1132 faxed face sheet to [facility]. Addendum entered by Ilan Darby RN 01/25/25 11:32: 1125 informed Madelyn Ross at [phone] with Dinh [facility] that her contact info has given to [facility] and they are working on the case. 1111 called [facility], spoke to Glen and initiated the transfer. Glen asked for insurance auth. I asked him for the information of hospital, npi, tax id and accepting dr. mcmullen. He stated he just need verbal auth to proceed. I gave him [facility] at [phone]. He stated to fax face sheet and he will start working on it. 1026 Called Dinh [facility]TERFIELD RN Madelyn [place] at [phone] and informed need auth for transfer. I informed her that [facility] with transfer request and both need auth.?She stated she can only give auth on 1 facility at a time. Original Note: 0927 received call from Clarissa with [facility] TC for updates. Updates given. Clarissa stated they are at capacity at this time. But she will give us a call when bed opens up.
[2025-01-25] MEDS: SODIUM CHLORIDE 0.9% 250 ML 250 ML 999 ML IV (09:56)
--- NOTE | 2025-01-25 11:16 | ESPR_ITS ---
<Statement entered by Irma Jacob MD - 02/01/25 13:34> I reviewed above note and agree with findings and plans. I have also personally examined the patient with medicine team and went over assessment and plan with medical team including strategy intern and resident physician. Documentation for date of: 01/25/25 Subjective Subjective Interval history: No acute ovenight events. Seen and examined at bedside and patient states that her nausea and vomiting are tolerable with current regimen and CONVEX GRINDER recently uptitrated per Dr. Stafford. Otherwise, still has not had a bowel movement and will continue to monitor as previous imaging showed no evidence of obstruction. Otherwise, vital signs stable, WBC downtrending, hemoglobin stable, and chem panel stable. Currently still awaiting bed at [facility]; however, given that no beds have been available for last few days will expand search and await for further updates from [facility]. Exam Vital Signs Temp Pulse Resp BP Pulse Ox O2 Del Method O2 Flow Rate 98.3 F 95 18 104/69 96 Nasal Cannula 1 01/25/25 07:43 01/25/25 07:43 01/25/25 08:15 01/25/25 07:43 01/25/25 07:43 01/25/25 07:43 01/25/25 07:43 Narrative Exam General appearance: in mild distress laying in bed with nasal cannula, improving, able to speak full sentences, conversational HEENT: NC/AT, no scleral icterus, no conjunctival pallor, MMM Lungs: CTAB, no wheezes or crackles appreciated CVS: RRR, S1/S2 heard, no murmurs or rubs appreciated ABD: large abdomen, diffusely tender to palpation, firm, bowel sounds appreciated, biliary drain placed in right upper quadrant EXT: no deformity/edema/lesions/cyanosis/clubbing, radial pulses 2+ BL, DP pulses 2 + BL SKIN: skin exam normal without any rashes Neuro: A&O x 3. No gross neurological deficits. Motor and sensory grossly intact in B/L UL and LL Psych: Appropriate mood and affect Objective Labs 01/25/25 05:02 01/25/25 05:02 Labs: Laboratory Results - last 24 hr 01/25/25 05:02 WBC 10.8 RBC 2.59 L Hgb 7.4 L Hct 24.0 L MCV 93 MCH 28.6 MCHC 30.8 L RDW Std Deviation 53.9 H Plt Count 320 Neut % (Auto) 70 Lymph % (Auto) 19 [place] % (Auto) 7 Eos % (Auto) 3 Baso % (Auto) 1 Neut # (Auto) 7.5 Lymph # (Auto) 2.0 [place] # (Auto) 0.8 Eos # (Auto) 0.3 Baso # (Auto) 0.1 Immature Gran # (Auto) 0.14 H Absolute Nucleated RBC 0.03 H Immature Gran % 1 H Nucleated RBC % 0 Sodium 131 L Potassium 4.1 Chloride 96 L Carbon Dioxide 23.0 Anion Gap 12 BUN 20 Creatinine 1.5 H Estim Creat Clear Calc 66.6 eGFR 44 L BUN/Creatinine Ratio 13 Glucose 95 Calculated Osmolality 265 L Calcium 8.4 Corrected Calcium 9.0 Phosphorus 3.2 Magnesium 2.2 Total Bilirubin 0.4 AST 26 ALT < 7 L Alkaline Phosphatase 79 Total Protein 6.9 Albumin 3.2 L Globulin 3.7 H Albumin/Globulin Ratio 0.9 L Quality Measures Quality Measures VTE prophylaxis Assessment & Plan Assessment Current Active Medications: Generic Name Dose Route Start Last Admin Trade Name Freq PRN Reason Stop Dose Admin Acetaminophen 650 mg 01/17/25 07:32 Acetaminophen 325 Mg Tablet PO 02/15/25 23:08 Q6H PRN Fever >100.3 or pain(1-3) Enoxaparin Sodium 40 mg 01/17/25 09:00 01/25/25 08:11 Enoxaparin Sod Inj 40 Mg/0.4 Ml Syringe SC 01/31/25 08:59 40 mg QDAY MARU Administration Promethazine HCl 25 mg/ Sodium 51 mls @ 2.5 mls/min 01/23/25 11:16 01/24/25 09:02 Chloride IV 02/22/25 11:11 2.5 mls/min Q6HR PRN Administration NAUSEA OR VOMITING Ceftriaxone Sodium/Dextrose 1 gm in 50 mls @ 100 mls/hr 01/24/25 09:00 01/25/25 08:11 Rocephin/D5w 1gm Iv Premix IV 01/31/25 08:59 100 mls/hr QDAY MARU Administration Metronidazole 500 mg in 100 mls @ 200 mls/hr 01/24/25 06:00 01/25/25 05:16 Flagyl 500 Mg Iv IV 01/31/25 05:59 200 mls/hr Q8HR MARU Administration Metoclopramide HCl 10 mg 01/18/25 17:50 01/25/25 07:42 Metoclopramide Inj 5 Mg/Ml Vial 2 Ml IVP 02/17/25 17:49 10 mg Q6HR PRN Administration NAUSEA OR VOMITING Protocol Morphine Sulfate 30 mg 01/23/25 21:14 01/25/25 00:41 Morphine Sulfate Pf 1 Mg/Ml Orthopedics Pediatric Physician Vial 30 Ml IV 01/27/25 20:11 30 mg PER ORDER PRN Administration PAIN Protocol Pantoprazole Sodium 40 mg 01/20/25 20:55 01/25/25 08:11 Pantoprazole Inj 40 Mg Vial IVP 02/19/25 20:54 40 mg QDAY MARU Administration Scopolamine 1 mg 01/18/25 22:00 01/24/25 21:35 Scopolamine 1 Mg Tdsy TOP 02/17/25 21:59 1 mg Q3D MARU Administration Sennosides 1 tab 01/16/25 23:14 01/24/25 14:46 Senna Tablet PO 02/15/25 23:13 1 tab QDAY PRN Administration constipation Protocol Plan Karlene Carvalho, 44-year-old female with past medical history of leiomyosarcoma s/p supracervical hysterectomy s/p chemotherapy in 2023, 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 intake for three weeks prior to admission. #Cholelithiasis #Biliary dyskinesia #Intractable nausea/vomiting #Decreased p.o. intake Intractable N/V for three weeks with decreased p.o. intake. Gallbladder ultrasound showed cholelithiasis and thickening of gallbladder wall, CT abdomen and pelvis showed cholelithiasis, and HIDA scan showed EF 22%. MRCP also obtained that showed cholelithiasis but no signs of cholecystitis; also showed abrupt truncation of common hepatic duct which may be related to large tumor mass in pelvis that extends into the upper abdomen. T bili, ALP, and LFTs all within normal limits, no fevers, mild leukocytosis. IR placement of percutaneous cholecystostomy tube placed 01/19/2025 ? General Surgery consulted, appreciate recommendations ? Ceftriaxone 1 g IV daily, Flagyl 500 mg IV every 8 hours (01/16-) ? Zofran as needed ? Promethazine 25 mg q6h prn ? Scopolamine patch every 72 hours ? Urine culture 01/16: Mixed tevin ? Blood cultures 01/16: no growth ? Bile fluid culture: no growth #Metastatic leiomyosarcoma #Pelvic mass #Intractable abdominal pain Diagnosed with cancer on 07/[address] Morris oncology in [place]. Last chemo session was in 2023 and patient has not seen an oncologist since August 2024 secondary to insurance issues. Per patient she has undergone total hysterectomy, chemotherapy and radiation in the past. On admission, CT A/P significant for metastatic pulmonary nodules, malignant ascites, and very large septated necrotic mass in pelvis extending into abdomen 25 x 27 x 17 cm. ? Dr. Stafford consulted, appreciate recommendations ? Pain management: CONVEX GRINDER, will transition to long-acting morphine tomorrow ? Transfer process for surgical debulking ongoing: accepting physician and insurance authorized, currently pending bed #Normocytic anemia Possibly secondary to anemia of chronic disease from underlying malignancy versus iron deficiency. Patient denies blood in urine or stool. On admission hemoglobin 9.8, hematocrit 30.3, and MCV 88. ? Monitor with daily hematology panel while hospitalized #Constipation Given Senna and milk of mag without bowel movements. Patient states that she will like to continue to try oral agents before trying enema/suppository. Hospital management: Disposition: IV antibiotics, transfer process ongoing for debulking Diet: Dysphagia 2 diet DVT prophylaxis: Enoxaparin CODE STATUS: full code ----- Plan discussed with attending physician Dr. Cecil Alvarez MD PGY-1 Internal Medicine
[2025-01-25] MEDS: PROMETHAZINE INJ 25 MG in SODIUM CHLORIDE 0.9% 50 ML IV (17:01)
[2025-01-25] MEDS: SENNA TABLET 1 TAB PO (21:12)
[2025-01-26] VITALS (10 sets, daily range): BP systolic 111–129; BP diastolic 67–79; PULSE 62–104; RESP 15–21; TEMP 35.9–36.6; O2SAT 92–98; BMI 42.3
--- NOTE | 2025-01-26 00:16 | PC.NURSE ---
Patient's cholecystostomy drainage catheter accidentally fell out, patient states she was trying to get up to go use the bathroom when the tube fell out. No visible drainage or bleeding, tube is intact, patient reports pain but states site is mostly itchy. Called Dr. Braeden Zelaya regarding this, doctor saw patient at bedside and assessed site where drainage tube was. Per doctor will let the day team know tomorrow, per MD okay to take out old dressing and out new dressing. No new orders received. Per MD to continue to monitor site.
[2025-01-26] MEDS: METOCLOPRAMIDE INJ 5 MG/ML VIAL 2 ML 10 MG IVP ×4 (00:53→20:33)
[2025-01-26] MEDS: metroNIDAZOLE/NS 500 MG IVPB 500 MG/100 ML BAG 200 MG IV ×3 (05:29→23:06)
[2025-01-26 05:58] LABS: Basophils # (Auto) 0.1 Thou/mm3 (0.0-0.2); Basophils % (Auto) 1 % (0-2.5); Eosinophils # (Auto) 0.3 Thou/mm3 (0.0-0.5); Eosinophils % (Auto) 3 % (0-10); Hematocrit 23.7 % (36.0-46.0); Immature Granulocytes % (Auto) 1 % (0-0); Immature Granulocytes Auto 0.12 Thou/mm3 (0.00-0.00); Lymphocytes # (Auto) 1.6 Thou/mm3 (1.0-4.8); Lymphocytes % (Auto) 15 % (10-50); Mean Corpuscular HGB Conc 31.6 g/dl (31.0-37.0); Mean Corpuscular Hemoglobin 29.4 pg (25.0-35.0); Mean Corpuscular Volume 93 fL (80-100); Monocytes # (Auto) 0.9 Thou/mm3 (0.0-0.8); Monocytes % (Auto) 8 % (0-12); Neutrophils # (Auto) 7.9 Thou/mm3 (1.8-7.7); Neutrophils % (Auto) 73 % (37-80); Nucleated Red Blood Cell # 0.02 Thou/mm3 (0.00-0.00); Nucleated Red Blood Cell % 0 /100 WBC (0); Platelet Count 291 Thou/mm3 (140-440); RDW Standard Deviation 57.5 fL (36.4-46.3); Red Blood Count 2.55 Miln/mm3 (4.00-5.20); White Blood Count 10.9 Thou/mm3 (3.6-11.0)
[2025-01-26 06:03] LABS: Hemoglobin 7.5 g/dL (12.0-16.0)
[2025-01-26 06:10] LABS: Alanine Aminotransferase < 7 U/L (10-49); Albumin, Serum 3.2 gm/dL (3.5-5.0); Albumin/Globulin Ratio 0.9 (1.2-2.2); Alkaline Phosphatase 78 U/L (46-116); Anion Gap 10 (7-16); Aspartate Amino Transferase 26 U/L (0-34); BUN/Creatinine Ratio 12 Ratio (12-20); Bilirubin,Total 0.4 mg/dL (0.3-1.2); Blood Urea Nitrogen 19 mg/dL (9-23); Calcium 8.7 mg/dL (8.3-10.6); Calcium (Corrected) 9.3 mg/dL (8.5-10.1); Carbon Dioxide 22.7 mMol/L (20.0-31.0); Chloride 95 mMol/L (98-107); Creatinine (Component) 1.6 mg/dL (0.6-1.3); Estimated Creatinine Clearance 64.3 mL/min (>60); Globulin 3.6 gm/dL (2.3-3.5); Glucose 110 mg/dL (74-106); Magnesium 2.1 mg/dL (1.6-2.6); Osmolality,Calculated 260 (275-295); Phosphorous 3.3 mg/dL (2.4-5.1); Sodium 128 mMol/L (136-145); Total Protein 6.8 gm/dL (5.7-8.2); eGFR 41 See Note
[2025-01-26] MEDS: Morphine Sulfate PF 1 MG/ML PCA VIAL 30 ML 30 MG IV ×2 (06:55→20:40)
[2025-01-26] MEDS: ENOXAPARIN SOD INJ 40 MG/0.4 ML SYRINGE SC (08:33)
[2025-01-26] MEDS: cefTRIAXone/D5w 1gm IV premix 1 GM/50 ML BAG IV (08:34)
[2025-01-26] MEDS: PANTOPRAZOLE INJ 40 MG VIAL IVP (08:34)
--- NOTE | 2025-01-26 10:47 | CHAP ---
Visited by the Spiritual Care Volunteer and core java engineer who prayed for them. (Volunteer was in the hospital from 09:15-11:47)
--- NOTE | 2025-01-26 10:58 | ESPR_ITS ---
Documentation for date of: 01/26/25 Subjective Subjective Interval history: Notified that cholecystostomy tube had become dislodged and will discuss with general surgery whether or not to leave it out or to replace. Patient states she has discomfort in the RUQ but not significant, no fevers, overnight and site is C/D/I. Nausea and pain currently well-managed on current regimen. However, given that patient has not been able to have a bowel movement will start more aggressive bowel regimen for her. At this time, [facility] is still awaiting bed availability and also in communication with [facility] for possible transfer. Exam Vital Signs Temp Pulse Resp BP Pulse Ox O2 Del Method O2 Flow Rate 97.5 F 95 17 122/73 93 L Nasal Cannula 1 01/26/25 08:00 01/26/25 08:00 01/26/25 08:00 01/26/25 08:00 01/26/25 08:00 01/26/25 08:00 01/26/25 08:00 Narrative Exam General: AOx3, mild distress from pain and nausea, able to speak full sentences HEENT: NC/AT, mucous membranes moist, bilateral sclera anicteric Cardiovascular: regular rate and rhythm, S1/S2 present, no murmurs appreciated Pulmonary: clear to auscultation bilaterally, no rales/rhonchi/wheezes Abdominal: firm but non-tympanitic, distended, tender, no rebound/guarding, normal bowel sounds present Musculoskeletal: normal ROM, no peripheral edema Skin: cholecystostomy tube now out and site C/D/I; warm and dry, intact, no rashes Neuro: CN II-XII intact, no focal deficits Objective Labs 01/26/25 04:38 01/26/25 04:38 Labs: Laboratory Results - last 24 hr 01/26/25 04:38 WBC 10.9 RBC 2.55 L Hgb 7.5 L Hct 23.7 L MCV 93 MCH 29.4 MCHC 31.6 RDW Std Deviation 57.5 H Plt Count 291 Neut % (Auto) 73 Lymph % (Auto) 15 [place] % (Auto) 8 Eos % (Auto) 3 Baso % (Auto) 1 Neut # (Auto) 7.9 H Lymph # (Auto) 1.6 [place] # (Auto) 0.9 H Eos # (Auto) 0.3 Baso # (Auto) 0.1 Immature Gran # (Auto) 0.12 H Absolute Nucleated RBC 0.02 H Immature Gran % 1 H Nucleated RBC % 0 Sodium 128 L Potassium 4.0 Chloride 95 L Carbon Dioxide 22.7 Anion Gap 10 BUN 19 Creatinine 1.6 H Estim Creat Clear Calc 64.3 eGFR 41 L BUN/Creatinine Ratio 12 Glucose 110 H Calculated Osmolality 260 L Calcium 8.7 Corrected Calcium 9.3 Phosphorus 3.3 Magnesium 2.1 Total Bilirubin 0.4 AST 26 ALT < 7 L Alkaline Phosphatase 78 Total Protein 6.8 Albumin 3.2 L Globulin 3.6 H Albumin/Globulin Ratio 0.9 L Quality Measures Quality Measures VTE prophylaxis Assessment & Plan Assessment Current Active Medications: Generic Name Dose Route Start Last Admin Trade Name Freq PRN Reason Stop Dose Admin Enoxaparin Sodium 40 mg 01/17/25 09:00 01/26/25 08:33 Enoxaparin Sod Inj 40 Mg/0.4 Ml Syringe SC 01/31/25 08:59 40 mg QDAY MARU Administration Promethazine HCl 25 mg/ Sodium 51 mls @ 2.5 mls/min 01/23/25 11:16 01/25/25 17:01 Chloride IV 02/22/25 11:11 2.5 mls/min Q6HR PRN Administration NAUSEA OR VOMITING Ceftriaxone Sodium/Dextrose 1 gm in 50 mls @ 100 mls/hr 01/24/25 09:00 01/26/25 08:34 Rocephin/D5w 1gm Iv Premix IV 01/31/25 08:59 100 mls/hr QDAY MARU Administration Metronidazole 500 mg in 100 mls @ 200 mls/hr 01/24/25 06:00 01/26/25 05:29 Flagyl 500 Mg Iv IV 01/31/25 05:59 200 mls/hr Q8HR MARU Administration Metoclopramide HCl 10 mg 01/18/25 17:50 01/26/25 06:56 Metoclopramide Inj 5 Mg/Ml Vial 2 Ml IVP 02/17/25 17:49 10 mg Q6HR PRN Administration NAUSEA OR VOMITING Protocol Morphine Sulfate 30 mg 01/23/25 21:14 01/26/25 06:55 Morphine Sulfate Pf 1 Mg/Ml [place] Operator Vial 30 Ml IV 01/27/25 20:11 30 mg PER ORDER PRN Administration PAIN Protocol Pantoprazole Sodium 40 mg 01/20/25 20:55 01/26/25 08:34 Pantoprazole Inj 40 Mg Vial IVP 02/19/25 20:54 40 mg QDAY MARU Administration Scopolamine 1 mg 01/18/25 22:00 01/24/25 21:35 Scopolamine 1 Mg Tdsy TOP 02/17/25 21:59 1 mg Q3D MARU Administration Sennosides 1 tab 01/16/25 23:14 01/25/25 21:12 Senna Tablet PO 02/15/25 23:13 1 tab QDAY PRN Administration constipation Protocol Plan Karlene Carvalho, 44-year-old female with past medical history of leiomyosarcoma s/p supracervical hysterectomy s/p chemotherapy in 2023, 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 intake for three weeks prior to admission. #Cholelithiasis #Biliary dyskinesia #Intractable nausea/vomiting #Decreased p.o. intake Intractable N/V for three weeks with decreased p.o. intake. Gallbladder ultrasound showed cholelithiasis and thickening of gallbladder wall, CT abdomen and pelvis showed cholelithiasis, and HIDA scan showed EF 22%. MRCP also obtained that showed cholelithiasis but no signs of cholecystitis; also showed abrupt truncation of common hepatic duct which may be related to large tumor mass in pelvis that extends into the upper abdomen. T bili, ALP, and LFTs all within normal limits, no fevers, mild leukocytosis. IR placement of percutaneous cholecystostomy tube placed 01/19/2025 ? General Surgery consulted, appreciate recommendations ? Ceftriaxone 1 g IV daily, Flagyl 500 mg IV every 8 hours (01/16-) ? Zofran, promethazine 25 mg q6h prn, and scopolamine patch every 72 hours ? Urine culture 01/16: Mixed tevin ? Blood cultures 01/16: no growth ? Bile fluid culture: no growth #Metastatic leiomyosarcoma #Pelvic mass #Intractable abdominal pain Diagnosed with cancer on 07/[address] Morris oncology in [place]. Last chemo session was in 2023 and patient has not seen an oncologist since August 2024 secondary to insurance issues. Per patient she has undergone total hysterectomy, chemotherapy and radiation in the past. On admission, CT A/P significant for metastatic pulmonary nodules, malignant ascites, and very large septated necrotic mass in pelvis extending into abdomen 25 x 27 x 17 cm. ? Dr. Stafford consulted, appreciate recommendations ? Pain management: PLANNING OFFICIAL ? Transfer process for surgical debulking ongoing: accepting physician and insurance authorized, currently pending bed for [facility]; in communication with [facility] #Normocytic anemia Possibly secondary to anemia of chronic disease from underlying malignancy versus iron deficiency. Patient denies blood in urine or stool. On admission hemoglobin 9.8, hematocrit 30.3, and MCV 88. ? Monitor with daily hematology panel while hospitalized #Constipation ? Senna daily as needed ? Dulcolax 10 mg OH daily as needed ? Water enema ordered Hospital management: Disposition: IV antibiotics, transfer process ongoing for debulking Diet: Dysphagia 2 diet DVT prophylaxis: Enoxaparin CODE STATUS: full code ----- Plan discussed with attending physician Dr. Cecil Alvarez MD PGY-1 Internal Medicine
[2025-01-26] MEDS: SENNA TABLET 1 TAB PO (13:58)
[2025-01-26] MEDS: bisacodyL 10 MG SUPP PR (13:58)
--- NOTE | 2025-01-26 14:18 | PC.SS ---
SS follow up note; Patient is pending HLOC.
--- NOTE | 2025-01-26 16:31 | PD.RESEVENT ---
Documentation for date of: 01/26/25 Event Note Event Note: I was called by the nursing staff due to the patients cholecystostomy tube dislodging while walking to the bathroom. I assessed the patient and the dressings and it was noted to not be leaking. No tenderness to palpation of the area no redness noted or discharge. Day team informed. Garth Zelaya MD PGY-1
--- NOTE | 2025-01-26 18:52 | PC.CC ---
Addendum entered by Ilan Darby RN 01/26/25 18:54: Pt has been accepted at [facility] and pending bed. Original Note: I had a very busy day today with multiple transfers housewide and direct admits. Unable to try any other new places.
[2025-01-27] VITALS (10 sets, daily range): BP systolic 106–124; BP diastolic 60–76; PULSE 84–110; RESP 14–24; TEMP 36–36.9; O2SAT 93–96
[2025-01-27] MEDS: PROMETHAZINE INJ 25 MG in SODIUM CHLORIDE 0.9% 50 ML IV ×2 (04:56→19:19)
[2025-01-27] MEDS: metroNIDAZOLE/NS 500 MG IVPB 500 MG/100 ML BAG 200 MG IV ×3 (05:24→21:01)
--- NOTE | 2025-01-27 05:32 | PC.NURSE ---
drsg dry on right upper quadrant of abdomen- removed drsg, scab, no drainage. Kept open to air.
[2025-01-27 06:03] LABS: Basophils # (Auto) 0.1 Thou/mm3 (0.0-0.2); Basophils % (Auto) 1 % (0-2.5); Eosinophils # (Auto) 0.3 Thou/mm3 (0.0-0.5); Eosinophils % (Auto) 2 % (0-10); Hematocrit 24.2 % (36.0-46.0); Immature Granulocytes % (Auto) 1 % (0-0); Immature Granulocytes Auto 0.12 Thou/mm3 (0.00-0.00); Lymphocytes # (Auto) 1.4 Thou/mm3 (1.0-4.8); Lymphocytes % (Auto) 13 % (10-50); Mean Corpuscular HGB Conc 32.2 g/dl (31.0-37.0); Mean Corpuscular Hemoglobin 29.3 pg (25.0-35.0); Mean Corpuscular Volume 91 fL (80-100); Monocytes % (Auto) 9 % (0-12); Neutrophils # (Auto) 8.2 Thou/mm3 (1.8-7.7); Neutrophils % (Auto) 75 % (37-80); Nucleated Red Blood Cell # 0.03 Thou/mm3 (0.00-0.00); Nucleated Red Blood Cell % 0 /100 WBC (0); Platelet Count 265 Thou/mm3 (140-440); RDW Standard Deviation 56.7 fL (36.4-46.3); Red Blood Count 2.66 Miln/mm3 (4.00-5.20)
[2025-01-27 06:04] LABS: Hemoglobin 7.8 g/dL (12.0-16.0)
[2025-01-27 06:26] LABS: Alanine Aminotransferase < 7 U/L (10-49); Albumin, Serum 3.3 gm/dL (3.5-5.0); Albumin/Globulin Ratio 0.9 (1.2-2.2); Alkaline Phosphatase 79 U/L (46-116); Anion Gap 12 (7-16); BUN/Creatinine Ratio 10 Ratio (12-20); Bilirubin,Total 0.4 mg/dL (0.3-1.2); Blood Urea Nitrogen 15 mg/dL (9-23); Calcium 8.9 mg/dL (8.3-10.6); Calcium (Corrected) 9.5 mg/dL (8.5-10.1); Carbon Dioxide 18.9 mMol/L (20.0-31.0); Chloride 95 mMol/L (98-107); Creatinine (Component) 1.5 mg/dL (0.6-1.3); Estimated Creatinine Clearance 71.5 mL/min (>60); Globulin 3.7 gm/dL (2.3-3.5); Glucose 96 mg/dL (74-106); Magnesium 2.1 mg/dL (1.6-2.6); Osmolality,Calculated 254 (275-295); Phosphorous 3.6 mg/dL (2.4-5.1); Potassium 4.5 mMol/L (3.4-5.1); Sodium 126 mMol/L (136-145); eGFR 44 See Note
--- NOTE | 2025-01-27 07:00 | PC.NURSE ---
Total morphine classified copy control clerk intake=24.34ml.
[2025-01-27] MEDS: ENOXAPARIN SOD INJ 40 MG/0.4 ML SYRINGE SC (08:12)
[2025-01-27] MEDS: PANTOPRAZOLE INJ 40 MG VIAL IVP (08:12)
[2025-01-27] MEDS: cefTRIAXone/D5w 1gm IV premix 1 GM/50 ML BAG IV (08:13)
[2025-01-27] MEDS: METOCLOPRAMIDE INJ 5 MG/ML VIAL 2 ML 10 MG IVP ×3 (08:28→22:56)
--- NOTE | 2025-01-27 08:55 | PC.CC ---
0838- Spoke with Nydia RN at [facility] transfer center, provided clinical update and contact information for attending provider today. She has informed me that patient is on their priority transfer list and are hoping to have a bed available today, they have been at high census but understand patient has been waiting for several days. They will call later with an update if they are able to release a bed for her today. Updated FILI Carver.
--- NOTE | 2025-01-27 12:10 | PD.RESPRO ---
Documentation for date of: 01/27/25 Subjective Subjective Interval history: The patient was seen and examined at the bedside. No acute overnight events were reported. She was comfortably lying in bed and stated that her pain has significantly improved. She denies any nausea or abdominal pain. Vital signs and laboratory results are stable, with no acute changes compared to yesterday. Given her hyponatremia and dehydration?likely secondary to poor oral intake?maintenance IV fluids (normal saline at a low rate) will be initiated. IV antibiotics will be continued to cover for any possible abdominal infection while awaiting transfer. The patient was informed of the plan and expressed understanding and agreement. Exam Vital Signs Temp Pulse Resp BP Pulse Ox O2 Del Method O2 Flow Rate 97.8 F 107 H 18 114/60 94 L Nasal Cannula 1 01/27/25 08:00 01/27/25 08:22 01/27/25 08:22 01/27/25 08:00 01/27/25 08:22 01/27/25 08:00 01/27/25 08:22 Narrative Exam General: AOx3, mild distress from pain and nausea, able to speak full sentences HEENT: NC/AT, mucous membranes moist, bilateral sclera anicteric Cardiovascular: regular rate and rhythm, S1/S2 present, no murmurs appreciated Pulmonary: clear to auscultation bilaterally, no rales/rhonchi/wheezes Abdominal: firm but non-tympanitic, distended, tender, no rebound/guarding, normal bowel sounds present Musculoskeletal: normal ROM, no peripheral edema Skin: warm and dry, intact, no rashes Neuro: CN II-XII intact, no focal deficits Objective Labs 01/27/25 04:15 01/27/25 04:15 Labs: Laboratory Results - last 24 hr 01/27/25 04:15 WBC 11.0 RBC 2.66 L Hgb 7.8 L Hct 24.2 L MCV 91 MCH 29.3 MCHC 32.2 RDW Std Deviation 56.7 H Plt Count 265 Neut % (Auto) 75 Lymph % (Auto) 13 [place] % (Auto) 9 Eos % (Auto) 2 Baso % (Auto) 1 Neut # (Auto) 8.2 H Lymph # (Auto) 1.4 [place] # (Auto) 1.0 H Eos # (Auto) 0.3 Baso # (Auto) 0.1 Immature Gran # (Auto) 0.12 H Absolute Nucleated RBC 0.03 H Immature Gran % 1 H Nucleated RBC % 0 Sodium 126 L Potassium 4.5 D Chloride 95 L Carbon Dioxide 18.9 L Anion Gap 12 BUN 15 Creatinine 1.5 H Estim Creat Clear Calc 71.5 eGFR 44 L BUN/Creatinine Ratio 10 L Glucose 96 Calculated Osmolality 254 L Calcium 8.9 Corrected Calcium 9.5 Phosphorus 3.6 Magnesium 2.1 Total Bilirubin 0.4 ALT < 7 L Alkaline Phosphatase 79 Total Protein 7.0 Albumin 3.3 L Globulin 3.7 H Albumin/Globulin Ratio 0.9 L Quality Measures Quality Measures VTE prophylaxis Assessment & Plan Assessment Current Active Medications: Generic Name Dose Route Start Last Admin Trade Name Freq PRN Reason Stop Dose Admin Bisacodyl 10 mg 01/26/25 12:48 01/26/25 13:58 Bisacodyl 10 Mg Supp NC 02/25/25 12:47 10 mg QDAY PRN Administration Constipation Protocol Enoxaparin Sodium 40 mg 01/17/25 09:00 01/27/25 08:12 Enoxaparin Sod Inj 40 Mg/0.4 Ml Syringe SC 01/31/25 08:59 40 mg QDAY MARU Administration Promethazine HCl 25 mg/ Sodium 51 mls @ 2.5 mls/min 01/23/25 11:16 01/27/25 04:56 Chloride IV 02/22/25 11:11 2.5 mls/min Q6HR PRN Administration NAUSEA OR VOMITING Ceftriaxone Sodium/Dextrose 1 gm in 50 mls @ 100 mls/hr 01/24/25 09:00 01/27/25 08:13 Rocephin/D5w 1gm Iv Premix IV 01/31/25 08:59 100 mls/hr QDAY MARU Administration Metronidazole 500 mg in 100 mls @ 200 mls/hr 01/24/25 06:00 01/27/25 05:24 Flagyl 500 Mg Iv IV 01/31/25 05:59 200 mls/hr Q8HR MARU Administration Sodium Chloride 1,000 mls @ 75 mls/hr 01/27/25 09:29 Ns IV 02/26/25 09:28 .[id number] MARU Metoclopramide HCl 10 mg 01/18/25 17:50 01/27/25 08:28 Metoclopramide Inj 5 Mg/Ml Vial 2 Ml IVP 02/17/25 17:49 10 mg Q6HR PRN Administration NAUSEA OR VOMITING Protocol Morphine Sulfate 30 mg 01/23/25 21:14 01/26/25 20:40 Morphine Sulfate Pf 1 Mg/Ml Boiler Out Vial 30 Ml IV 01/27/25 20:11 30 mg PER ORDER PRN Administration PAIN Protocol Pantoprazole Sodium 40 mg 01/20/25 20:55 01/27/25 08:12 Pantoprazole Inj 40 Mg Vial IVP 02/19/25 20:54 40 mg QDAY MARU Administration Scopolamine 1 mg 01/18/25 22:00 01/24/25 21:35 Scopolamine 1 Mg Tdsy TOP 02/17/25 21:59 1 mg Q3D MARU Administration Sennosides 1 tab 01/16/25 23:14 01/26/25 13:58 Senna Tablet PO 02/15/25 23:13 1 tab QDAY PRN Administration constipation Protocol Plan Karlene Carvalho, 44-year-old female with past medical history of leiomyosarcoma s/p supracervical hysterectomy s/p chemotherapy in 2023, 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 intake for three weeks prior to admission. #Cholelithiasis #Biliary dyskinesia #Intractable nausea/vomiting Intractable N/V for three weeks with decreased p.o. intake. Gallbladder ultrasound showed cholelithiasis and thickening of gallbladder wall, CT abdomen and pelvis showed cholelithiasis, and HIDA scan showed EF 22%. MRCP also obtained that showed cholelithiasis but no signs of cholecystitis; also showed abrupt truncation of common hepatic duct which may be related to large tumor mass in pelvis that extends into the upper abdomen. T bili, ALP, and LFTs all within normal limits, no fevers, mild leukocytosis. IR placement of percutaneous cholecystostomy tube placed 01/19/2025-01/26/25 ? General Surgery consulted, appreciate recommendations ? Ceftriaxone 1 g IV daily, Flagyl 500 mg IV every 8 hours (01/16-) ? Zofran, promethazine 25 mg q6h prn, and scopolamine patch every 72 hours ? Urine culture 01/16: Mixed tevin ? Blood cultures 01/16: no growth ? Bile fluid culture: no growth #Metastatic leiomyosarcoma #Pelvic mass #Intractable abdominal pain due to above-improving Diagnosed with cancer on 07/[address] Morris oncology in [place]. Last chemo session was in 2023 and patient has not seen an oncologist since August 2024 secondary to insurance issues. Per patient she has undergone total hysterectomy, chemotherapy and radiation in the past. On admission, CT A/P significant for metastatic pulmonary nodules, malignant ascites, and very large septated necrotic mass in pelvis extending into abdomen 25 x 27 x 17 cm. ? Dr. Stafford consulted, appreciate recommendations ? Pain management: INCIDENT RESPONSE CONSULTANT ? Transfer process for surgical debulking ongoing: accepting physician and insurance authorized, currently pending bed for [facility]; in communication with [facility] #[facility] LUIS most likely prerenal in the setting of dehydration - IVF - Renally dose medication - Avoid nephrotoxins - Daily renal panel #Normocytic anemia Possibly secondary to anemia of chronic disease from underlying malignancy versus iron deficiency. Patient denies blood in urine or stool. On admission hemoglobin 9.8, hematocrit 30.3, and MCV 88. ? Monitor with daily hematology panel while hospitalized #Constipation ? Bry regimen is in Hospital management: Disposition: IV antibiotics, transfer process ongoing for debulking Diet: Dysphagia 2 diet DVT prophylaxis: Enoxaparin CODE STATUS: full code Patient care was discussed with attending physician Dr. Carol Blancas MD PGY-2 I have carefully reviewed this document. Due to imperfections in the voice software, there could be grammatical errors including phonetic/typographic errors. This in no way compromises the medical care the patient is receiving Attending Provider Attestation/Addendum I Pablo Wren MD reviewed the note and agree with the resident's assessment & plan with exceptions as below. I have personally reviewed labs, imaging, home meds/prior records, examined the patient, formulated and discussed management plan with the IM team. Karlene is a 44 yr old F who has metastatic leomyocasrcoma s/p partial hystrectomy and chemotherapy admitted for acute recurrent nausea/vomiting with biliary dyskinesia deemed not a surgical candidate had a Cholecystostomy tube placed resolving her symptoms and objective evidence of hepatobiliary injury. Continue IVF resuscitation and empiric ABx for potential intra-abdominal infection. Also being evaluated and potential transfer to a tertiary care center for debulking. Pt is ready for transfer once bed is available. Will provide supportive care.
[2025-01-27] MEDS: Morphine Sulfate PF 1 MG/ML PCA VIAL 30 ML 30 MG IV (12:24)
--- NOTE | 2025-01-27 15:00 | ESDS_ITS ---
Planned Discharge Date 01/27/25 DS: Providers Provider Date of admission: 01/16/25 23:09 Primary care physician: Jennifer Higginbotham NP Admitting Provider: Kuldip Owusu MD Attending Provider on Admission: Irma Jacob MD Consults: 01/16/25 23:21 Consult to General Surgery Routine Comment: Consulting Provider: Elan Ramos 01/17/25 00:31 Consult to Oncology Routine Comment: Consulting Provider: Ranjeet Stafford 01/17/25 10:37 Referral [place] Routine Comment: 01/21/25 10:38 Referral - Superannuation Funds Manager Routine Service Needed for Transfer: Surgical oncology Addl Comments:: 44-year-old female with 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 Gallbladder ultrasound showed cholelithiasis with thickening of the gallbladder wall and follow- up HIDA showed decreased gallbladder EF of 22%. CT A/P showed a septated necrotic mass (25 x 27 x 17 cm) in the pelvis that extended into the abdomen as well as metastatic pulmonary nodules. General surgery was consulted and patient was not a surgical candidate and recommended placement of percutaneous cholecystostomy tube, which was placed on 01/19 without significant improvement and patient symptoms. Oncologist also consulted and started patient on patient cont rolled analgesia but also consulted regarding possibility of palliative debulking surgery and on board. Attending Provider on DC: Carol Blancas MD Discharging Provider: Carol Blancas MD DS: Diagnosis Problem List Completed Was Problem List Reviewed/Reconciled?: Yes Hospital Course Hospital Course Hospital course: Karlene Carvalho is a 44-year-old female with past medical history of uterine leiomyosarcoma status post supracervical hysterectomy with bilateral salpin gectomy, status post chemotherapy throughout 2023 but stopped after the new year due to insurance issues, 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 Gallbladder ultrasound showed cholelithiasis with thickening of the gallbladder wall and follow-up HIDA showed decreased gallbladder EF of 22%. CT A/P showed a septated necrotic mass (25 x 27 x 17 cm) in the pelvis that extended into the abdomen as well as metastatic pulmonary nodules. General surgery was consulted and patient was not a surgical candidate and recommended placement of percutaneous cholecystostomy tube, which was placed on 01/19 without significant improvement in patient symptoms. Oncologist also consulted and started patient on patient controlled analgesia but also consulted regarding possibility of palliative debulking surgery . Throughout hospital course, patient's symptoms were improved with medication compared to before she came into the hospital, cholestomy tube was fell off, however had minimal output from chelestomy tube. She continued to have episodes of nausea and vomiting. Vital signs remained stable, no spikes in temperature and hemodynamically stable. She did require transfusion of one unit pRBC for hemoglobin of 6.9 but has not had any episodes of hematochezia, melena, hemoptysis, hematemesis, or kamila hematuria and suspect to be due to fluid res uscitation (overall positive 7 L fluids) and/or malnutrition. No fevers, cough, or urinary symptoms but did remain on ceftriaxone and flagyl for possible intra- abdominal infection coverage. C Otherwise, patient is currently accepted by tertiary center for continued care and is stable for transfer. Diagnoses during admission: #Cholelithiasis #Biliary dyskinesia #Intractable nausea/vomiting #Decreased p.o. intake #Metastatic leiomyosarcoma #Pelvic mass #Intractable abdominal pain #Normocytic anemia Patient care was discussed with attending physician Dr. Holger Blancas MD PGY-2 I have carefully reviewed this document. Due to imperfections in the voice software, there could be grammatical errors including phonetic/typographic errors. This in no way compromises the medical care the patient is receiving Time Spent with Patient Time attestation: Total time spent providing and/or coordinating discharge services: Time spent: Greater than 30 minutes Exam Vital Signs Temp Pulse Resp BP Pulse Ox O2 Del Method O2 Flow Rate 97.8 F 104 H 18 118/75 93 L Nasal Cannula 1 01/27/25 12:01/27/25 12:01/27/25 12:01/27/25 12:01/27/25 12:01/27/25 12:01/27/25 12:00 Narrative Exam General: AOx3, mild distress from pain and nausea, able to speak full sentences HEENT: NC/AT, mucous membranes moist, bilateral sclera anicteric Cardiovascular: regular rate and rhythm, S1/S2 present, no murmurs appreciated Pulmonary: clear to auscultation bilaterally, no rales/rhonchi/wheezes Abdominal: firm but non-tympanitic, distended, tender, no rebound/guarding, normal bowel sounds present Musculoskeletal: normal ROM, no peripheral edema Skin: warm and dry, intact, no rashes Neuro: CN II-XII intact, no focal deficits Discharge Plan Plan Patient Disposition: Xfer Other Facility Pt Being Transferred to: [facility] Prescriptions/Referrals Prescriptions/Med Rec: No Action No Known Home Medications Referrals: Jennifer Higginbotham NP [Primary Care Provider] - Patient/Caregiver Discharge Instructions Print Language: [place] Stand Alone Forms: Analisa Award Info., Patient Portal Info Letter Quality Discharge Quality Measures VTE prophylaxis
--- NOTE | 2025-01-27 15:08 | PC.CC ---
9657- Received call from [facility], patient has been accepted by Dr. Yip and there is a room available for her. She will go to [facility] RM 507 A, phone number for report is [phone] to RENETTA Erazo. Provided update to FILI Carver.
--- NOTE | 2025-01-27 16:16 | PC.NURSE ---
called [facility] number [phone] talk to vanessa nurse,report given ETA time 1930.
--- NOTE | 2025-01-27 22:24 | PC.LAC ---
updated Bernardo [facility] clinical auto rental supervisor of ambulance pear picker time to 2300.
== END 2025-01-27 22:55 | disposition other institution (70) ==
LOC: SERX 21:16 → SERHOLD 23:59 → S3NX 01-17 05:21
PROVIDERS: Emergency Medicine; Nurse Practitioner Family; Student in an Organized Health Care Education/Training Program; Admitting Provider Student in an Organized Health Care Education/Training Program; Emergency Provider Emergency Medicine; PCP Nurse Practitioner Women's Health; Visit Provider Internal Medicine
DX: K80.00 Calculus of gallbladder with acute cholecystitis without obstruction (principal); C78.80 Secondary malignant neoplasm of unspecified digestive organ; C78.00 Secondary malignant neoplasm of unspecified lung; J18.9 Pneumonia, unspecified organism; R19.00 Intra-abdominal and pelvic swelling, mass and lump, unspecified site; C55 Malignant neoplasm of uterus, part unspecified; D63.0 Anemia in neoplastic disease; K82.8 Other specified diseases of gallbladder; Z90.711 Acquired absence of uterus with remaining cervical stump; Z86.711 Personal history of pulmonary embolism; F41.9 Anxiety disorder, unspecified; D64.9 Anemia, unspecified; E86.0 Dehydration; E87.1 Hypo-osmolality and hyponatremia; D25.1 Intramural leiomyoma of uterus; G47.00 Insomnia, unspecified; N17.9 Acute kidney failure, unspecified; R18.0 Malignant ascites; K74.60 Unspecified cirrhosis of liver; Z59.71 Insufficient health insurance coverage; K59.00 Constipation, unspecified; Z92.21 Personal history of antineoplastic chemotherapy; Z90.722 Acquired absence of ovaries, bilateral
CPT/HCPCS: 36415; 71250; 74018; 74177; 76705; 77012; 78227; 80053; 81001; 81025; 83690; 83735; 84100; 84703; 85014; 85018; 85025; 85610; 85730; 86850; 86900; 86901; 86923; 87040; 87070; 87075; 87086; 87205; 87811; 93005; 93970; 96361; 96365; 96367; 96375; 96376; 99285; A4649; A9537; C1729; J0696; J1171; J1650; J1885; J2270; J2405; J2470; J2543; J2550; J2765; J2805; J3010; J3490; J7030; J7050; P9016; Q9967; S8037; 74181; A9270; J1836

== ENCOUNTER 2025-07-07 16:07 | Emergency (ER) | payer MEDICAID, SELFPAY ==
[2025-07-07 16:55] VITALS: BP 94/70; PULSE 135; RESP 20; TEMP 36.9; O2SAT 94
[2025-07-07 17:08] VITALS: BMI 31.9
[2025-07-07 17:17] VITALS: TEMP 36.5
--- NOTE | 2025-07-07 17:29 | EDNOTE_ITS ---
Nausea/Vomit./Diarrhea-RME/HPI General Chief complaint: Nausea/Vomiting/Diarrhea Stated complaint: DEHYDRATION, TEMP. 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 According to her she has been having nausea vomiting, for 1 week, unable to eat or tolerate p.o. fluids due to vomiting. No w patient has been having worsening pain, and generalized weakness. Patient family is asking if they can give her some fluids, patient does not want any imaging except for urinalysis and blood draw just to make sure there is no UTI. No fever noted no cough noted Related Data Previous Rx's ?Medication ?Instructions ?Recorded cefuroxime axetil 500 mg tablet 500 mg PO BID #14 tabs 07/07/25 famotidine 40 mg tablet (Pepcid) 40 mg PO BID #30 tabs 07/07/25 metoclopramide HCl 10 mg tablet 10 mg PO Q6H PRN nause a and 07/07/25 (Reglan) vomiting #30 tabs ondansetron HCl 4 mg tablet 4 mg PO Q8H PRN nausea and 07/07/25 vomiting 5 days #30 tabs Allergies Allergy/AdvReac Type Severity Reaction Status Date / Time No Known Allergies Allergy Verified 07/07/25 16:10 Review of Systems Review of Systems Narrative Review of Systems: Review of system reviewed and within normal limits except mentioned in HPI ED Exam Narrative Physical exam: VITAL SIGNS: Reviewed. GENERAL APPEARANCE: Alert and interactive, follows commands, no acute distress, generalized pain HEAD AND FACE: Non-traumatic. ENT: PERRL, pale conjunctiva, eyelid no trauma, Mucous membrane moist. NECK: Supple, nontender, no nuchal rigidity. CHEST: No tenderness, no crepitus, no paradoxical movement, no retractions. LUNGS: Clear, well ventilated, symmetric, no rales, no wheezing, no ronchi, no stridor, good breath sounds bilaterally. HEART: Regular rate, regular rhythm, no murmur, no gallops. ABDOMEN: Soft, positive bowel sounds, nondistended, no guarding, slightly distended abdomen, no rebound, no masses, RECTAL: Deferred. GENITAL: Deferred. NEUROLOGICAL: Gross motor function intact sensory function intact, Appropriate for age. MUSCULOSKELETAL: low back nontender, full range of motion. EXTREMITIES: Nontender, full range of motion. SKIN: Color pale, dry, no rash, no lacerations, no abrasions, no contusions. LYMPHATICS: Deferred. Course Quality Measures none Orders Category Date Time Status CBC Stat Lab 07/07/25 17:37 Completed Comprehensive Metabolic Panel Stat Lab 07/07/25 17:37 Completed Urinalysis, C/S if Indicated Stat Lab 07/07/25 21:18 Completed Urine Culture Stat Lab 07/07/25 21:18 Received Famotidine Inj [Pepcid Inj] Med 07/07/25 17:26 Discontinued 20 mg IVP X1 ONE Morphine* Inj Med 07/07/25 17:26 Discontinued 4 mg IVP X1 ONE Ondansetron Inj [Zofran Inj] Med 07/07/25 17:26 Discontinued 4 mg IVP X1 ONE Ringers Lactated 1000 ml [Lactated Ringers] 1,000 ml Med 07/07/25 17:26 Discontinued IV 999 mls/hr Ringers Lactated 1000 ml [Lactated Ringers] 1,000 ml Med 07/07/25 17:26 Discontinued IV 999 mls/hr cefTRIAXone/D5w 1gm IV premix [Rocephin/D5w 1gm IV Med 07/07/25 21:38 Ordered premix] 1 gm in 50 ml IV X1 Vital Signs Vital signs: Vital Signs Temperature 98.4 F 07/07/25 16:55 Pulse Rate 135 H 07/07/25 16:55 Respiratory Rate 20 07/07/25 16:55 Blood Pressure 94/70 07/07/25 16:55 Pulse Oximetry (%) 94 L 07/07/25 16:55 Oxygen Delivery Method Room Air 07/07/25 16:55 Nausea/Vomiting/Diarrhea MDM Narrative MDM Narrative:: 44-year-old female patient with 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 According to her she has been having nausea vomiting, for 1 week, unable to eat or tolerate p.o. fluids due to vomiting. Now patient has been having worsening pain, and generalized weakness. Patient family is asking if they can give her some fluids, patient does not want any imaging except for urinalysis and blood draw just to make sure there is no UTI. No fever noted no cough noted Patient's workup today is significant for UTI there is no sign of anemia. No leukocytosis. Creatinine was noted to be 2.0. Patient was given 2 L of IV fluids, IV Pepcid, Zofran IV, and IV ceftriaxone with significant improvement of symptoms patient was noted to be eating in the emergency room she is ready to go home. Patient data External records reviewed:: None Clinical information provided by:: patient Social determinants that could affect healthcare access:: none Patient has the following chronic illnesses:: History of uterine cancer with mets all over, hospice patient How is presenting disease/condition affected by chronic disease/condition?: exacerbated by Evaluation data The following diagnostics were reviewed and interpreted by me:: lab results Lab and/or radiology exams considered but not ordered:: None Interpretation Summary: See above Medications / Prescriptions Medications / Prescriptions considered but not ordered:: None Medication administrations:: Medication Administration History Ceftriaxone Sodium/Dextrose (Rocephin/D5w 1gm Iv Premix) 1 gm in 50 mls @ 100 mls/hr IV X1 ONE Stop: 07/07/25 22:07 Discontinued Medications Famotidine (Famotidine Inj 10 Mg/Ml Vial 2 Ml) 20 mg IVP X1 ONE Stop: 07/07/25 17:27 Last Admin: 07/07/25 17:41 Dose: 20 mg Documented By: EF Lactated Ringer's (Lactated Ringers) 1,000 mls @ 999 mls/hr IV .Q1H1M ONE Stop: 07/07/25 18:26 Last Infusion: 07/07/25 20:38 Dose: Infused Documented By: Admin: 07/07/25 17:42 Dose: 999 mls/hr Documented By: EF Lactated Ringer's (Lactated Ringers) 1,000 mls @ 999 mls/hr IV .Q1H1M ONE Stop: 07/07/25 18:26 Last Infusion: 07/07/25 20:38 Dose: Infused Documented By: Admin: 07/07/25 17:42 Dose: 999 mls/hr Documented By: EF Morphine Sulfate (Morphine Sulf Inj 4 Mg/Ml Vial) 4 mg IVP X1 ONE Stop: 07/07/25 17:27 Last Admin: 07/07/25 17:41 Dose: 4 mg Documented By: EF Ondansetron HCl (Ondansetron Inj 2 Mg/Ml Inj 2 Ml) 4 mg IVP X1 ONE; Protocol Stop: 07/07/25 17:27 Last Admin: 07/07/25 17:41 Dose: 4 mg Documented By: EF Zofran morphine IV fluids Pepcid and ceftriaxone Consultations Consultation(s) initiated? (list below): No Diagnosis Nausea Differential Diagnosis: gastroenteritis and dehydration Most likely diagnosis given after review of the tests above:: Dehydration, UTI, uterine cancer with mets, nausea and vomiting Admission Indicated Admission indicated?: not indicated Admission Request Was there a request for admission?: No Disposition Plan Disposition Plan: Discharge Discharge Attestation Discharge Attestation: The patient and all family members were given an opportunity to ask questions and understood the discharge instructions. Discharge instructions specifically effects, indications for sooner follow up or return to the emergency department, and the expected course of current diagnosis. Patient condition: Stable Discharge Plan Plan Patient Disposition: HOME (Self Care) Discharge Disposition comment: Stable Prescriptions/Referrals Prescriptions/Med Rec: New cefuroxime axetil 500 mg tablet 500 mg PO BID Qty: 14 0RF ondansetron HCl 4 mg tablet 4 mg PO Q8H PRN (Reason: nausea and vomiting) 5 Days Qty: 30 0RF famotidine [Pepcid] 40 mg tablet 40 mg PO BID Qty: 30 0RF metoclopramide HCl [Reglan] 10 mg tablet 10 mg PO Q6H PRN (Reason: nausea and vomiting) Qty: 30 0RF Referrals: No Primary/Family,Physician [Primary Care Provider] - In 1 week Problem List Clinical Impression: Dehydration, Nausea & vomiting, UTI (urinary tract infection), History of uterine cancer Patient/Caregiver Discharge Instructions Discharge Activity: activity as tolerated Education Materials: Understanding Urinary Tract ... Additional Instructions: Thank you for the opportunity for serving you today. You are stable for discharged . You are advised to: Follow-up with your PCP in 1 to 2 days Return to ED for worsening of symptoms Increase oral fluids Take medication as prescribed Print Language: Cambodian Stand Alone Forms: Analisa Award Info., Patient Portal Info Letter NARENDRA/VON Supervising Physician NARENDRA/VON Supervising Physician: MD Omar
[2025-07-07] MEDS: ONDANSETRON INJ 2 MG/ML INJ 2 ML 4 MG IVP (17:41)
[2025-07-07] MEDS: FAMOTIDINE INJ 10 MG/ML VIAL 2 ML 20 MG IVP (17:41)
[2025-07-07] MEDS: MORPHINE SULF INJ 4 MG/ML VIAL IVP (17:41)
[2025-07-07] MEDS: RINGERS LACTATED 1000 ML 1,000 ML 999 ML IV ×2 (17:42)
[2025-07-07 17:51] LABS: Basophils # (Auto) 0.0 Thou/mm3 (0.0-0.2); Basophils % (Auto) 1 % (0-2.5); Eosinophils # (Auto) 0.0 Thou/mm3 (0.0-0.5); Eosinophils % (Auto) 0 % (0-10); Hematocrit 43.4 % (36.0-46.0); Hemoglobin 14.1 g/dL (12.0-16.0); Immature Granulocytes Auto 0.02 Thou/mm3 (0.00-0.00); Lymphocytes # (Auto) 1.8 Thou/mm3 (1.0-4.8); Lymphocytes % (Auto) 20 % (10-50); Mean Corpuscular HGB Conc 32.5 g/dl (31.0-37.0); Mean Corpuscular Hemoglobin 28.5 pg (25.0-35.0); Mean Corpuscular Volume 88 fL (80-100); Monocytes # (Auto) 0.5 Thou/mm3 (0.0-0.8); Monocytes % (Auto) 6 % (0-12); Neutrophils # (Auto) 6.4 Thou/mm3 (1.8-7.7); Neutrophils % (Auto) 73 % (37-80); Nucleated Red Blood Cell # 0.00 Thou/mm3 (0.00-0.00); Nucleated Red Blood Cell % 0 /100 WBC (0); Platelet Count 162 Thou/mm3 (140-440); RDW Standard Deviation 41.3 fL (36.4-46.3); Red Blood Count 4.94 Miln/mm3 (4.00-5.20); White Blood Count 8.7 Thou/mm3 (3.6-11.0)
[2025-07-07 18:14] LABS: Alanine Aminotransferase 8 U/L (10-49); Albumin, Serum 4.3 gm/dL (3.5-5.0); Albumin/Globulin Ratio 1.3 (1.2-2.2); Alkaline Phosphatase 107 U/L (46-116); Anion Gap 12 (7-16); Aspartate Amino Transferase 24 U/L (0-34); BUN/Creatinine Ratio 7 Ratio (12-20); Bilirubin,Total 0.7 mg/dL (0.3-1.2); Blood Urea Nitrogen 13 mg/dL (9-23); Carbon Dioxide 23.8 mMol/L (20.0-31.0); Chloride 100 mMol/L (98-107); Creatinine (Component) 2.0 mg/dL (0.6-1.3); Estimated Creatinine Clearance 44.2 mL/min (>60); Globulin 3.2 gm/dL (2.3-3.5); Glucose 114 mg/dL (74-106); Osmolality,Calculated 273 (275-295); Potassium 3.9 mMol/L (3.4-5.1); Sodium 136 mMol/L (136-145); Total Protein 7.5 gm/dL (5.7-8.2); eGFR 31 See Note
[2025-07-07 18:15] VITALS: BP 111/83; PULSE 123; RESP 17; TEMP 36.4; O2SAT 95
[2025-07-07 18:19] LABS: Calcium 13.7 mg/dL (8.3-10.6)
[2025-07-07 18:20] LABS: Calcium (Corrected) 13.7 mg/dL (8.5-10.1)
[2025-07-07 19:23] VITALS: BP 105/84; PULSE 122; RESP 24; TEMP 37.2; O2SAT 95
--- NOTE | 2025-07-07 19:52 | PC.NURSE ---
PT WAS ABLE TO EAT WITHOUT REPORTING N/V.
[2025-07-07 21:26] LABS: Collection Type, Urine Clean Catch
[2025-07-07 21:32] LABS: Amorphous Crystals,Urine Present (Absent); Bacteria,Urine Rare; Bilirubin,Urine Negative (Negative); Blood,Urine Negative (Negative); Clarity,Urine Turbid (Clear/Hazy); Color,Urine Yellow (Lt Yel-Yel); Culture Indicated,Urine Yes; Glucose, Urine Negative (Negative); Hyaline Casts,Urine 2 /hpf (0-1); Ketones,Urine Negative (Negative); Leukocyte Esterase,Urine Positive (Negative); Nitrite,Urine Negative (Negative); PH,Urine 6.0 (5.0-7.0); Protein,Urine 1+ (Neg - Trace); RBC,Urine 21 /hpf (0-3); Specific Gravity,Urine 1.021 (1.001-1.035); Squamous Epithelial Cell,Urine 7 /hpf (0-5); Urobilinogen,Urine Negative mg/dL (0.0-1.0); WBC,Urine 14 /hpf (0-5)
[2025-07-07 21:40] VITALS: BP 104/72; PULSE 117; RESP 18; TEMP 36.4; O2SAT 96
[2025-07-07] MEDS: cefTRIAXone/D5w 1gm IV premix 1 GM/50 ML BAG IV (22:03)
[2025-07-07 22:48] VITALS: BP 104/72; PULSE 124; RESP 18; TEMP 37; O2SAT 97
== END 2025-07-07 22:49 | disposition home or self-care (01) ==
PROVIDERS: Nurse Practitioner Family; Emergency Provider Physician Assistant
DX: E86.0 Dehydration (principal); N39.0 Urinary tract infection, site not specified; C55 Malignant neoplasm of uterus, part unspecified; C79.9 Secondary malignant neoplasm of unspecified site; Z51.5 Encounter for palliative care
CPT/HCPCS: 36415; 80053; 81001; 85025; 87086; 96361; 96365; 96375; 99283; J0696; J2270; J2405; J3490; J7120